=== PATIENT | female | born 1945 | race Caucasian/White ===

== ENCOUNTER 2016-07-31 16:37 | Emergency (ER) | payer MEDICARE ==
--- NOTE | 2016-07-31 17:36 | Emergency Department Record ---
History of Present Illness - General Source: Patient Mode of Arrival: Ambulatory Limitations: No limitations - History of Present Illness Initial comments: The patient is here due to having a long hx of poor dental care and now is having L facial pain and swelling for one day. She denies any fever, chills, GAR , or visual changes. MD complaint: Tooth pain Onset/Timin -: Days(s) Severity: Moderate Context- Dental: History of dental caries, Poor dental care Associated Symptoms: Gum swelling, Toothache <Eder Luis - Last Filed: 07/31/16 18:08> - General Source: RN notes reviewed <Horace Monreal - Last Filed: 08/01/16 09:37> - General Chief complaint: Dental Stated complaint: SWOLLEN FACE Time Seen by Provider: 07/31/16 17:35 - Related Data Home Medications Medication Instructions Recorded Confirmed Last Taken Mometasone Furoate [Nasonex] 2 inh NS DAILY 04/15/14 07/31/16 07/31/16 Acetaminophen [Arthritis Pain] 650 mg PO Q8HR 09/25/14 07/31/16 07/31/16 Insulin Degludec [Tresiba #15 04/06/16 07/31/16 Flextouch U-100] Previous Rx's Medication Instructions Recorded Cholecalciferol (Vitamin D3) 50,000 unit PO WEEKLY #8 tablet 06/12/14 [Dialyvite Vitamin D3 Max] Cephalexin [Keflex] 500 mg PO QID #40 cap 08/01/16 Allergies Allergy/AdvReac Type Severity Reaction Status Date / Time tetracycline [Tetracycline] Allergy Mild RASH Verified 08/01/16 08:41 Travel Screening - Travel/Exposure Within Last 30 Days Have you traveled within the last 30 days?: No - Travel/Exposure Within Last Year Have you traveled outside the [place] in the last year?: No - Additonal Travel Details Have you been exposed to anyone with a communicable illness?: No - Travel Symptoms Symptom Screening: None <Eder Luis - Last Filed: 07/31/16 18:08> Review of Systems Constitutional: Denies: Chills, Fever Eyes: Denies: Eye discharge ENT: Reports: Dental pain. Denies: Congestion Respiratory: Denies: Cough <Eder Luis - Last Filed: 07/31/16 18:08> Past Medical History - SOCIAL HISTORY Smoking Status: Never smoker Alcohol Use: None Drug Use: None - RESPIRATORY Hx Respiratory Disorders: Yes Hx Asthma: Yes Hx Pulmonary Embolism: Yes Hx Sleep Apnea: Yes Hx of CPAP: Yes (sometimes) Comment:: allergies - CARDIOVASCULAR Hx Cardio Disorders: Yes Hx Deep Vein Thrombosis: Yes (last 2013?) Hx Edema: Yes (BLE) Hx Hypertension: Yes Hx Vascular Disease: (n/a) Comment:: High cholestrol - NEURO Hx Neuro Disorders: No - GI Hx GI Disorders: No - Hx Genitourinary Disorders: Yes Hx Bladder Problem: Yes (incont.) - ENDOCRINE Hx Endocrine Disorders: Yes Hx Diabetes: Yes - MUSCULOSKELETAL Hx Musculoskeletal Disorders: Yes Hx Arthritis: Yes (knees) - PSYCH Hx Psych Problems: Yes Comment:: Bipolar - HEMATOLOGY/ONCOLOGY Hx Hematology/Oncology Disorders: Yes Hx Clotting Problems: Yes (DVT) Hx Blood Transfusions: Yes (w/ hysterectomy) <ToybEder Avery - Last Filed: 07/31/16 18:08> Family Medical History Any Significant Family History?: Yes Hx Cancer: Mother *Cancer Comment: multiple myeloma Hx Seizures: Brother/Sister <TobyEder Avery - Last Filed: 07/31/16 18:08> Physical Exam - General General Appearance: Alert, Oriented x3, Cooperative, No acute distress - Head Head exam: Atraumatic, Normocephalic, Normal inspection - Eye Eye exam: Normal appearance, PERRL, EOMI - ENT ENT exam: TM's normal bilaterally, Other (There is L facial edema and mild erythema over the maxillary area. There is swelling at the gum line at tooth # 12.). negative: Normal exam Throat exam: Normal inspection. negative: Tonsillar erythema, Tonsillomegaly - Neck Neck exam: Normal inspection, Full ROM. negative: Lymphadenopathy, Meningismus , Tenderness - Respiratory Respiratory exam: Normal lung sounds bilaterally. negative: Respiratory distress - Cardiovascular Cardiovascular Exam: Regular rate, Normal rhythm, Normal heart sounds <Eder Luis Bennie - Last Filed: 07/31/16 18:08> Course Vital Signs 07/31/16 17:14 Temperature 98 F Pulse Rate 114 H Respiratory 20 Rate Blood Pressure 154/91 Pulse Ox 91 L - Reevaluation(s) Reevaluation #1: The patient is doing very well at this time. I did discuss the issues with her and the need for return tomorrow morning. 07/31/16 18:09 <Eder Luis - Last Filed: 07/31/16 18:08> Vital Signs 07/31/16 07/31/16 17:14 18:36 Temperature 98 F Pulse Rate 114 H Pulse Rate [ 79 Right] Respiratory 20 20 Rate Blood Pressure 154/91 Blood Pressure 153/107 [Right Arm] Pulse Ox 91 L 90 L - Reevaluation(s) Reevaluation #1: because of cost will switch to keflex 500 mg QID and recheck tomorrow 08/01/16 09:34 <Horace Monreal - Last Filed: 08/01/16 09:37> Disposition Disposition: Discharge Time of Disposition: 18:11 <Eder Luis - Last Filed: 07/31/16 18:08> Time of Disposition: 09:37 <Horace Monreal - Last Filed: 08/01/16 09:37> Clinical Impression: Dental infection Disposition: Home, Self-Care Condition: (2) Stable Instructions: Dental Abscess (ED) Additional Instructions: Please take Tylenol for pain and use warm compresses to the L facial area. Take the single Clindamycin pill tonight as directed. Please return to the ER at 8 am tomorrow for recheck. Forms: Patient Portal Access
[2016-07-31] MEDS: CLINDAMYCIN 600MG/50ML PREMIX 600 MG in DEXTROSE 1 BAG IV ONE (17:51)
[2016-07-31] MEDS: CLINDAMYCIN 150 MG CAP PO ONE (18:17)
== END 2016-07-31 18:40 | disposition home or self-care (01) ==
LOC: ER 16:37
DX: K04.7 Periapical abscess without sinus (principal)
CPT/HCPCS: 96374; 99284

== ENCOUNTER 2016-08-01 08:29 | Emergency (ER) | payer MEDICARE ==
[2016-08-01] MEDS: CLINDAMYCIN 600MG/50ML PREMIX 600 MG in DEXTROSE 1 BAG IV ONE (09:09)
--- NOTE | 2016-08-01 09:14 | Emergency Department Record ---
History of Present Illness - General Chief complaint: Dental Stated complaint: RE-CHECK Time Seen by Provider: 08/01/16 09:08 Source: Patient, RN notes reviewed Mode of Arrival: Ambulatory - History of Present Illness Initial comments: dental infection and seen yesterday and asked to return for a recheck. patient said it got sore 2 days ago and swelling kourtney night in the face area. currently on clindamycin and she said the pain is slightly better. upper left gum has pointing abscess near tricuspid which is missing MD complaint: Tooth pain Onset/Timin -: Days(s) Severity: Mild Severity scale (1-10): 2 Quality: Aching Consistency: Constant Improves with: None Worsens with: Eating - Related Data Home Medications Medication Instructions Recorded Confirmed Last Taken Mometasone Furoate [Nasonex] 2 inh NS DAILY 04/15/14 07/31/16 07/31/16 Acetaminophen [Arthritis Pain] 650 mg PO Q8HR 09/25/14 07/31/16 07/31/16 Insulin Degludec [Tresiba #15 04/06/16 07/31/16 Flextouch U-100] Previous Rx's Medication Instructions Recorded Cholecalciferol (Vitamin D3) 50,000 unit PO WEEKLY #8 tablet 06/12/14 [Dialyvite Vitamin D3 Max] Cephalexin [Keflex] 500 mg PO QID #40 cap 08/01/16 Allergies Allergy/AdvReac Type Severity Reaction Status Date / Time tetracycline [Tetracycline] Allergy Mild RASH Verified 08/01/16 08:41 Travel Screening - Travel/Exposure Within Last 30 Days Have you traveled within the last 30 days?: No - Travel/Exposure Within Last Year Have you traveled outside the [place] in the last year?: No - Additonal Travel Details Have you been exposed to anyone with a communicable illness?: No - Travel Symptoms Symptom Screening: None Review of Systems Reviewed: No additional complaints except as noted below Constitutional: Reports: As per HPI. Denies: Chills, Fever, Malaise, Night sweats, Weakness, Weight change Eyes: Reports: As per HPI. Denies: Eye discharge, Eye pain, Photophobia, Vision change ENT: Reports: As per HPI. Denies: Congestion, Dental pain, Ear pain, Epistaxis , Hearing loss, Throat pain Respiratory: Reports: As per HPI. Denies: Cough, Dyspnea, Hemoptysis, Stridor, Wheezes Cardiovascular: Reports: As per HPI. Denies: Arrhythmia, Chest pain, Dyspnea on exertion, Edema, Murmurs, Orthopnea, Palpitations, Paroxysmal nocturnal dyspnea, Rheumatic Fever, Syncope Endocrine: Reports: As per HPI. Denies: Fatigue, Heat or cold intolerance, Polydipsia, Polyuria Gastrointestinal: Reports: As per HPI. Denies: Abdominal pain, Constipation, Diarrhea, Hematemesis, Hematochezia, Melena, Nausea, Vomiting Genitourinary: Reports: As per HPI. Denies: Abnormal menses, Discharge, Dyspareunia, Dysuria, Frequency, Hematuria, Incontinence, Retention, Urgency Musculoskeletal: Reports: As per HPI. Denies: Arthralgia, Back pain, Gout, Joint swelling, Myalgia, Neck pain Skin: Reports: As per HPI. Denies: Bruising, Change in color, Change in hair/ nails, Lesions, Pruritus, Rash Neurological: Reports: As per HPI. Denies: Abnormal gait, Confusion, Headache, Numbness, Paresthesias, Seizure, Tingling, Tremors, Vertigo, Weakness Psychiatric: Reports: As per HPI. Denies: Anxiety, Auditory hallucinations, Depression, Homicidal thoughts, Suicidal thoughts, Visual hallucinations Hematological/Lymphatic: Reports: As per HPI. Denies: Anemia, Blood Clots, Easy bleeding, Easy bruising, Swollen glands Past Medical History - SOCIAL HISTORY Smoking Status: Never smoker Alcohol Use: None Drug Use: None - RESPIRATORY Hx Respiratory Disorders: Yes Hx Asthma: Yes Hx Pulmonary Embolism: Yes Hx Sleep Apnea: Yes Hx of CPAP: Yes (sometimes) Comment:: allergies - CARDIOVASCULAR Hx Cardio Disorders: Yes Hx Deep Vein Thrombosis: Yes (last 2013?) Hx Edema: Yes (BLE) Hx Hypertension: Yes Hx Vascular Disease: (n/a) Comment:: High cholestrol - NEURO Hx Neuro Disorders: No - GI Hx GI Disorders: No - Hx Genitourinary Disorders: Yes Hx Bladder Problem: Yes (incont.) - ENDOCRINE Hx Endocrine Disorders: Yes Hx Diabetes: Yes - MUSCULOSKELETAL Hx Musculoskeletal Disorders: Yes Hx Arthritis: Yes (knees) - PSYCH Hx Psych Problems: Yes Comment:: Bipolar - HEMATOLOGY/ONCOLOGY Hx Hematology/Oncology Disorders: Yes Hx Clotting Problems: Yes (DVT) Hx Blood Transfusions: Yes (w/ hysterectomy) Family Medical History Any Significant Family History?: Yes Hx Cancer: Mother *Cancer Comment: multiple myeloma Hx Seizures: Brother/Sister Physical Exam - General General Appearance: Alert, Oriented x3, Cooperative, No acute distress - Head Head exam: Normal inspection - Eye Eye exam: Normal appearance, PERRL Pupils: Normal accommodation - ENT ENT exam: Normal exam, Mucous membranes moist, Normal external ear exam, Normal orophraynx, TM's normal bilaterally Ear exam: Normal external inspection. negative: External canal tenderness Nasal Exam: Normal inspection. negative: Discharge, Sinus tenderness Mouth exam: Normal external inspection, Tongue normal Teeth exam: Normal inspection, Other (gum abscess pointing upper by the tricuspid stop left side). negative: Dental caries Throat exam: Normal inspection. negative: Tonsillar erythema, Tonsillar exudate - Neck Neck exam: Normal inspection, Full ROM. negative: Tenderness - Respiratory Respiratory exam: Normal lung sounds bilaterally. negative: Respiratory distress - Cardiovascular Cardiovascular Exam: Regular rate, Normal rhythm, Normal heart sounds - GI/Abdominal GI/Abdominal exam: Soft, Normal bowel sounds. negative: Tenderness - Rectal Rectal exam: Deferred - exam: Deferred - Extremities Extremities exam: Normal inspection, Full ROM, Normal capillary refill. negative: Tenderness - Back Back exam: Reports: Normal inspection, Full ROM. Denies: Muscle spasm, Rash noted, Tenderness - Neurological Neurological exam: Alert, Normal gait, Oriented X3, Reflexes normal - Psychiatric Psychiatric exam: Normal affect, Normal mood - Skin Skin exam: Dry, Intact, Normal color, Warm Course Vital Signs 08/01/16 08/01/16 08:43 08:45 Temperature 97.6 F 97.7 F Pulse Rate 90 Pulse Rate [ 85 Pulse Ox Probe] Respiratory 20 16 Rate Blood Pressure 142/96 Blood Pressure 142/96 [Left Arm] Pulse Ox 90 L - Reevaluation(s) Reevaluation #1: incision and drainage of abscess 1 % lidocaine drained with a 11 blade purulent drainage 08/01/16 09:16 08/01/16 09:26 08/01/16 09:31 08/01/16 09:37 Reevaluation #2: start keflex 500 mg four times a day for abscess and she said no money for clindamycin 08/01/16 09:38 Disposition Clinical Impression: Dental abscess Disposition: Home, Self-Care Condition: (1) Good Additional Instructions: recheck tomorrow at 11 am in ED follow up with dentist next week and family keflex 500 mg four times a day rinse mouth with warm water 10 times a day. Prescriptions: Cephalexin [Keflex] 500 mg PO QID #40 cap Forms: Patient Portal Access Time of Disposition: 09:39
== END 2016-08-01 09:56 | disposition home or self-care (01) ==
LOC: ER 08:29
DX: K04.7 Periapical abscess without sinus (principal)
CPT/HCPCS: 41800; 96365; 99284

== ENCOUNTER 2016-08-02 10:59 | Emergency (ER) | payer MEDICARE ==
--- NOTE | 2016-08-02 11:32 | Emergency Department Record ---
History of Present Illness - General Chief Complaint: Recheck - Other Stated Complaint: RECHECK FACIAL SWELLING Time Seen by Provider: 08/02/16 11:18 Source: Patient Mode of arrival: Ambulatory Limitations: No limitations - History of Present Illness Initial Comments: The patient is her to recheck a recheck dental infection. She had an I and D 2 days ago. She is on Keflex 4 times daily. No fever or pus drainage. She still has some pain and mild swelling. The area involved is the left maxillary at #10. No eye pain or swelling. Onset/Timin -: Days(s) Initial Visit For: Abscess Symptoms Since Prior Visit: No new symptoms Associated Symptoms: None - Related Data Home Medications Medication Instructions Recorded Confirmed Last Taken Mometasone Furoate [Nasonex] 2 inh NS DAILY 04/15/14 07/31/16 08/01/16 Acetaminophen [Arthritis Pain] 650 mg PO Q8HR 09/25/14 07/31/16 08/01/16 Insulin Degludec [Tresiba #15 04/06/16 08/01/16 Flextouch U-100] Previous Rx's Medication Instructions Recorded Cholecalciferol (Vitamin D3) 50,000 unit PO WEEKLY #8 tablet 06/12/14 [Dialyvite Vitamin D3 Max] Cephalexin [Keflex] 500 mg PO QID #40 cap 08/01/16 Allergies Allergy/AdvReac Type Severity Reaction Status Date / Time tetracycline [Tetracycline] Allergy Mild RASH Verified 08/01/16 08:41 Travel Screening - Travel/Exposure Within Last 30 Days Have you traveled within the last 30 days?: No - Travel/Exposure Within Last Year Have you traveled outside the [place] in the last year?: No - Additonal Travel Details Have you been exposed to anyone with a communicable illness?: No - Travel Symptoms Symptom Screening: None Review of Systems Constitutional: Denies: Chills, Fever, Malaise, Weakness Eyes: Denies: Eye discharge, Eye pain ENT: Reports: Dental pain. Denies: Congestion, Ear pain, Throat pain Respiratory: Denies: Cough Cardiovascular: Denies: Chest pain Endocrine: Denies: Fatigue Gastrointestinal: Denies: Abdominal pain, Diarrhea, Nausea, Vomiting Musculoskeletal: Denies: Back pain, Myalgia Skin: Denies: Bruising, Change in color, Rash Neurological: Denies: Headache Psychiatric: Denies: Anxiety Hematological/Lymphatic: Denies: Blood Clots, Easy bleeding, Easy bruising Past Medical History - SOCIAL HISTORY Smoking Status: Never smoker Alcohol Use: None Drug Use: None - RESPIRATORY Hx Respiratory Disorders: Yes Hx Asthma: Yes Hx Pulmonary Embolism: Yes Hx Sleep Apnea: Yes Hx of CPAP: Yes (sometimes) Comment:: allergies - CARDIOVASCULAR Hx Cardio Disorders: Yes Hx Deep Vein Thrombosis: Yes (last 2013?) Hx Edema: Yes (BLE) Hx Hypertension: Yes Hx Vascular Disease: (n/a) Comment:: High cholestrol - NEURO Hx Neuro Disorders: No - GI Hx GI Disorders: No - Hx Genitourinary Disorders: Yes Hx Bladder Problem: Yes (incont.) - ENDOCRINE Hx Endocrine Disorders: Yes Hx Diabetes: Yes - MUSCULOSKELETAL Hx Musculoskeletal Disorders: Yes Hx Arthritis: Yes (knees) - PSYCH Hx Psych Problems: Yes Comment:: Bipolar - HEMATOLOGY/ONCOLOGY Hx Hematology/Oncology Disorders: Yes Hx Clotting Problems: Yes (DVT) Hx Blood Transfusions: Yes (w/ hysterectomy) Family Medical History Any Significant Family History?: Yes Hx Cancer: Mother *Cancer Comment: multiple myeloma Hx Seizures: Brother/Sister Physical Exam - General General Appearance: Alert, Oriented x3, Cooperative - Head Head exam: Atraumatic, Normocephalic, Normal inspection - Eye Eye exam: Normal appearance, PERRL. negative: Conjunctival injection, Periorbital swelling, Scleral icterus - ENT ENT exam: Mucous membranes moist, Normal orophraynx Ear exam: Normal external inspection Nasal Exam: Normal inspection Mouth exam: Tongue normal. negative: Drooling, Laceration, Muffled voice, Tongue elevation Teeth exam: Dental caries, Dental tenderness # (10), Other (Mild erythema, no pus, no fluctuance, no sign of abscess). negative: Fractured tooth #, Gingival enlargement Throat exam: Normal inspection. negative: Tonsillar erythema, Tonsillomegaly, Tonsillar exudate, R peritonsillar mass, L peritonsillar mass - Neck Neck exam: Normal inspection, Full ROM. negative: Tenderness - Respiratory Respiratory exam: Normal lung sounds bilaterally. negative: Respiratory distress - Cardiovascular Cardiovascular Exam: Regular rate, Normal rhythm, Normal heart sounds - Rectal Rectal exam: Deferred - exam: Deferred - Extremities Extremities exam: Normal inspection. negative: Tenderness - Back Back exam: Reports: Normal inspection, Full ROM. Denies: Muscle spasm, Rash noted, Tenderness - Neurological Neurological exam: Alert, Normal gait, Oriented X3, Reflexes normal - Psychiatric Psychiatric exam: negative: Agitated, Anxious - Skin Skin exam: Dry, Intact, Normal color, Warm Course Vital Signs 08/02/16 11:06 Temperature 98.6 F Pulse Rate 118 H Respiratory 20 Rate Blood Pressure 170/108 Pulse Ox 94 L - Reevaluation(s) Reevaluation #1: The patient is normal on inspection No sign of re-accumulation of pus, or abscess The Keflex will be continued A dental referral sheet was provided to the patient 08/02/16 11:30 Disposition Disposition: Discharge Clinical Impression: Dental infection Disposition: Home, Self-Care Condition: (1) Good Instructions: Dental Abscess (ED) Additional Instructions: Continue the Keflex 4 times daily Return as needed to the ER if you have any fever, redness or swelling. Call the numbers today for a dental referral. Forms: Patient Portal Access Time of Disposition: 11:28
== END 2016-08-02 11:49 | disposition home or self-care (01) ==
LOC: ER 10:59
DX: K04.7 Periapical abscess without sinus (principal)
CPT/HCPCS: 99282

== ENCOUNTER 2017-05-01 14:10 | Emergency (ER) | payer MEDICARE ==
--- NOTE | 2017-05-01 15:32 | Emergency Department Record ---
History of Present Illness - General Chief Complaint: Altered Mental Status Stated Complaint: CONFUSSION,FATIGUE Time Seen by Provider: 05/01/17 15:20 Source: Patient, RN notes reviewed Mode of Arrival: Ambulatory - History of Present Illness Initial Comments: word search problems yesterday. patient states she has forgotten alot of her med in the last week . On xarelto for DVT 's in the legs and PEs. No TX's and sees DR. Chung Mora. pulse ox low upon arrival at 83% on room air and that is new for her. MD Complaint: Confusion Onset/Timin -: Days(s) Severity: Moderate Context: Unknown Associated Symptoms: Cough, Shortness of breath - Dwight Coma Scale Eye Response: (4) Open spontaneously Motor Response: (6) Obeys commands Verbal Response: (4) Confused conversation [place] Total: 14 - Symptoms of Stroke Onset of Symptoms Date: 04/30/17 Onset of Symptoms Time: 20:00 - Related Data Home Medications Medication Instructions Recorded Confirmed Last Taken Insulin Glargine,Hum.[email or web address].anlog 100 unit SQ DAILY 05/01/17 05/01/17 1 Day Ago [Toujeo Solostar] ~04/30/17 Insulin Glulisine [Apidra] 10 unit SQ WMEALS 05/01/17 05/01/17 1 Day Ago ~04/30/17 Ubidecarenone [Coq-10] 100 mg PO DAILY 05/01/17 05/01/17 1 Day Ago ~04/30/17 Previous Rx's Medication Instructions Recorded Cholecalciferol (Vitamin D3) 50,000 unit PO WEEKLY #8 tablet 06/12/14 [Dialyvite Vitamin D3 Max] Allergies Allergy/AdvReac Type Severity Reaction Status Date / Time tetracycline [Tetracycline] Allergy Mild RASH Verified 05/01/17 15:03 Travel Screening - Travel/Exposure Within Last 30 Days Have you traveled within the last 30 days?: No - Travel/Exposure Within Last Year Have you traveled outside the [place] in the last year?: No - Additonal Travel Details Have you been exposed to anyone with a communicable illness?: No - Travel Symptoms Symptom Screening: None Review of Systems Reviewed: No additional complaints except as noted below Constitutional: Reports: As per HPI. Denies: Chills, Fever, Malaise, Night sweats, Weakness, Weight change Eyes: Reports: As per HPI. Denies: Eye discharge, Eye pain, Photophobia, Vision change ENT: Reports: As per HPI. Denies: Congestion, Dental pain, Ear pain, Epistaxis , Hearing loss, Throat pain Respiratory: Reports: As per HPI, Cough, Dyspnea. Denies: Hemoptysis, Stridor, Wheezes Cardiovascular: Reports: As per HPI. Denies: Arrhythmia, Chest pain, Dyspnea on exertion, Edema, Murmurs, Orthopnea, Palpitations, Paroxysmal nocturnal dyspnea, Rheumatic Fever, Syncope Endocrine: Reports: As per HPI. Denies: Fatigue, Heat or cold intolerance, Polydipsia, Polyuria Gastrointestinal: Reports: As per HPI. Denies: Abdominal pain, Constipation, Diarrhea, Hematemesis, Hematochezia, Melena, Nausea, Vomiting Genitourinary: Reports: As per HPI. Denies: Abnormal menses, Discharge, Dyspareunia, Dysuria, Frequency, Hematuria, Incontinence, Retention, Urgency Musculoskeletal: Reports: As per HPI. Denies: Arthralgia, Back pain, Gout, Joint swelling, Myalgia, Neck pain Skin: Reports: As per HPI. Denies: Bruising, Change in color, Change in hair/ nails, Lesions, Pruritus, Rash Neurological: Reports: As per HPI, Confusion. Denies: Abnormal gait, Headache, Numbness, Paresthesias, Seizure, Tingling, Tremors, Vertigo, Weakness Psychiatric: Reports: As per HPI. Denies: Anxiety, Auditory hallucinations, Depression, Homicidal thoughts, Suicidal thoughts, Visual hallucinations Hematological/Lymphatic: Reports: As per HPI. Denies: Anemia, Blood Clots, Easy bleeding, Easy bruising, Swollen glands Past Medical History - SOCIAL HISTORY Smoking Status: Never smoker Alcohol Use: None Drug Use: None - RESPIRATORY Hx Respiratory Disorders: Yes Hx Asthma: Yes Hx Pulmonary Embolism: Yes Hx Sleep Apnea: Yes Hx of CPAP: Yes (sometimes, last use 04/2016) Comment:: allergies - CARDIOVASCULAR Hx Cardio Disorders: Yes Hx Deep Vein Thrombosis: Yes (last 2013?) Hx Edema: Yes (BLE) Hx Hypertension: Yes Hx Vascular Disease: (n/a) Comment:: High cholestrol - NEURO Hx Neuro Disorders: No - GI Hx GI Disorders: No - Hx Genitourinary Disorders: Yes Hx Bladder Problem: Yes (incont.) - ENDOCRINE Hx Endocrine Disorders: Yes Hx Diabetes: Yes Comment:: bilateral neurapathy - MUSCULOSKELETAL Hx Musculoskeletal Disorders: Yes Hx Arthritis: Yes (knees) - PSYCH Hx Psych Problems: Yes Comment:: Bipolar - HEMATOLOGY/ONCOLOGY Hx Hematology/Oncology Disorders: Yes Hx Clotting Problems: Yes (DVT) Hx Blood Transfusions: Yes (w/ hysterectomy) Family Medical History Any Significant Family History?: Yes Hx Cancer: Mother *Cancer Comment: multiple myeloma Hx Seizures: Brother/Sister Physical Exam - General General Appearance: Alert, Oriented x3, Cooperative, No acute distress - Head Head exam: Normal inspection - Eye Eye exam: Normal appearance, PERRL Pupils: Normal accommodation - ENT ENT exam: Normal exam, Mucous membranes moist, Normal external ear exam, Normal orophraynx, TM's normal bilaterally Ear exam: Normal external inspection. negative: External canal tenderness Nasal Exam: Normal inspection. negative: Discharge, Sinus tenderness Mouth exam: Normal external inspection, Tongue normal Teeth exam: Normal inspection. negative: Dental caries Throat exam: Normal inspection. negative: Tonsillar erythema, Tonsillar exudate - Neck Neck exam: Normal inspection, Full ROM. negative: Tenderness - Respiratory Respiratory exam: Decreased breath sounds, Rales. negative: Respiratory distress - Cardiovascular Cardiovascular Exam: Regular rate, Normal rhythm, Normal heart sounds - GI/Abdominal GI/Abdominal exam: Soft, Normal bowel sounds. negative: Tenderness - Rectal Rectal exam: Deferred - exam: Deferred - Extremities Extremities exam: Normal inspection, Full ROM, Normal capillary refill. negative: Tenderness - Back Back exam: Reports: Normal inspection, Full ROM. Denies: Muscle spasm, Rash noted, Tenderness - Neurological Neurological exam: Alert, Normal gait, Oriented X3, Reflexes normal - Psychiatric Psychiatric exam: Normal affect, Normal mood - Skin Skin exam: Dry, Intact, Normal color, Warm Course Vital Signs 05/01/17 14:50 Temperature 97.6 F Pulse Rate 96 H Respiratory 18 Rate Blood Pressure 128/69 Pulse Ox 83 L discussed case with Simi and CTA of chest negative for PE but massive sub sternal goiter and because of this finding will send her to [facility] where she can see Dr Mora and get this mass worked up. - Reevaluation(s) Reevaluation #1: Discussed case with Dr. Gottlieb and she accepted the transfer and admission 05/01/17 20:32 Medical Decision Making - Data Complexity MDM Data: Labs Ordered and/or Reviewed (d dimer up .86,), X-Ray Ordered and/or Reviewed (CHF and cardiomegaly , Ct of head negative, CT of chest neg for PE and massive sub hyoid goiter, ground glass appearance of the chest consistent with CHF), EKG Ordered and/or Reviewed (No acute changes) - Lab Data Result diagrams: 05/01/17 15:05 05/01/17 15:05 - EKG Data EKG: No Acute Changes Disposition Clinical Impression: Mass in chest CHF (congestive heart failure) Qualifiers: Congestive heart failure type: systolic Congestive heart failure chronicity: acute Qualified Code(s): I50.21 - Acute systolic (congestive) heart failure Disposition: Acute Care Hospital Transfer Condition: (2) Stable Forms: Patient Portal Access Time of Disposition: 19:39 Quality - Quality Measures Quality Measures: N/A - Blood Pressure Screening Does Patient Have Any of the Following: No Blood Pressure Classification: Pre-Hypertensive BP Reading Systolic Measurement: 128 Diastolic Measurement: 69 Screening for High Blood Pressure: < Pre-Hypertensive BP, F/U Documented > [ G8950] Pre-Hypertensive Follow-up Interventions: Referral to alternative/primary care provider.
[2017-05-01] MEDS ORDERED: 0.9 % SODIUM CHLORIDE 1000ML 1,000 ML IV PRN (15:34)
[2017-05-01 15:49] LABS: BASO % 0.1 % (0-6); EOS % 0.1 % (0-6); GRAN % 78.8 % (47-80); HEMATOCRIT 48.7 % (35.0-47.0); HEMOGLOBIN 16.1 gm/dl (11.6-16.0); LYMPH % 13.1 % (16-45); MEAN CELL VOLUME 92.4 fl (81-97); MEAN CORPUSCULAR HGB CONC 33.1 g/dl (32-36); MEAN PLATELET VOLUME 10.3 fl (7.4-10.4); MONO % 7.9 % (0-9); PLATELET COUNT 155 K/uL (130-400); RED BLOOD COUNT 5.27 M/uL (3.80-5.40)
[2017-05-01 15:51] LABS: MEAN CORPUSCULAR HEMOGLOBIN 30.5 pg (27-33)
[2017-05-01 16:07] LABS: ALBUMIN 3.8 g/dL (4.0-5.0); ALKALINE PHOSPHATASE 96 U/L (35-104); ALT/SGPT 19 U/L (<33); AST/SGOT 20 U/L (10.0-35.0); BLOOD UREA NITROGEN 29 mg/dL (8-23); EST GLOMERULAR FILTRATION RATE 58 mL/min; GLUCOSE,RANDOM 226 mg/dL (74-109); TOTAL PROTEIN 7.3 g/dL (6.6-8.7)
[2017-05-01 16:13] LABS: ACETAMINOPHEN < 5.0 ug/mL (10.0-30.0); ALCOHOL < 0.010 g/dL (0-0.010); BILIRUBIN,DIRECT < 0.2 mg/dL (0-0.3); SALICYLATE < 0.3 mg/dL (2.8-20)
[2017-05-01 16:53] LABS: CKMB 1.8 ng/mL (<3.77)
[2017-05-01 17:40] LABS: URINE APPEARANCE CLOUDY; URINE BILIRUBIN NEGATIVE (NEGATIVE); URINE BLOOD TRACE-I (NEGATIVE); URINE COLOR YELLOW; URINE KETONE NEGATIVE (NEGATIVE); URINE LEUKOCYTE ESTERASE LARGE (NEGATIVE); URINE NITRITE POSITIVE (NEGATIVE); URINE PROTEIN NEGATIVE (NEGATIVE); URINE UROBILINOGEN 0.2 E.U./dL (0.20 - 1.00)
[2017-05-01 17:42] LABS: AMPHETAMINE SCREEN URINE NOT DETECTED; BARBITURATE SCREEN URINE NOT DETECTED; BENZODIAZEPINE SCREEN URINE NOT DETECTED; COCAINE SCREEN URINE NOT DETECTED; METHADONE SCREEN URINE NOT DETECTED; METHAMPHETAMINE SCREEN NOT DETECTED; OPIATE SCREEN URINE NOT DETECTED; OXYCODONE SCREEN URINE NOT DETECTED; PHENCYCLIDINE SCREEN URINE NOT DETECTED; PROPOXYPHENE SCREEN URINE NOT DETECTED; THC SCREEN URINE NOT DETECTED; TRICYCLIC ANTIDEPRESSANT SCRN NOT DETECTED
[2017-05-01 17:44] LABS: URINE BACTERIA 2+; URINE EPITHELIAL CELLS 0 - 2 (FEW); URINE RBC NONE SEEN (NONE SEEN); URINE WBC 21 - 35 (0-2/hpf)
[2017-05-01] MEDS ORDERED: FUROSEMIDE IV 40MG/4ML VIAL IVP ONE (18:21)
[2017-05-01] MEDS ORDERED: CEFTRIAXONE SODIUM 1 GM in 0.9 % SODIUM CHLORIDE 100ML 100 ML IVPB ONE (18:53)
--- NOTE | 2017-05-02 10:29 | RADIOLOGY REPORT ---
EXAM: CHEST, TWO VIEWS HISTORY: HYPOXIA AND CONFUSION. WEAKNESS. TECHNIQUE: Two views of the chest were obtained. Comparison: None. FINDINGS: Telemetry leads overlie the chest. There is mild cardiomegaly. Prominence of the pulmonary vascularity. Mild bibasilar opacities may relate to pleural fluid and atelectasis/ infiltrate. Moderate thoracic spondylosis. IMPRESSION: CARDIOMEGALY. SUGGESTION OF MILD BIBASILAR OPACITIES LIKELY A COMBINATION OF PLEURAL FLUID AND ATELECTASIS/INFILTRATE. GIVEN PROMINENCE OF THE PULMONARY VASCULARITY, CHF WOULD ALSO BE A POSSIBILITY IN THE APPROPRIATE CLINICAL SETTING. JOB NUMBER: [id number] [facility]TDD
--- NOTE | 2017-05-02 10:49 | CT SCAN REPORT ---
EXAM: CT OF THE HEAD WITHOUT CONTRAST HISTORY: CONFUSION, FATIGUE. TECHNIQUE: Routine noncontrast CT images of the head were obtained. Comparison: None. FINDINGS: The ventricles, basal cisterns, and sulci are of normal size, shape and configuration. No midline shift or mass effect. The jain white differentiation is well maintained throughout both cerebral hemispheres. No evidence of acute ischemia. There is periventricular hypoattenuation likely a sequela of chronic microvascular ischemia. There is a tiny 3 mm round hypodense focus in the region of the foramen of Monro. This could relate to a tiny colloid cyst and is of doubtful significance given lack of associated hydrocephalus. No intracranial hemorrhage. The paranasal sinuses and mastoid air cells appear clear. IMPRESSION: 1. NO ACUTE INTRACRANIAL ABNORMALITY. 2. CHRONIC MICROVASCULAR ISCHEMIA. 3. INCIDENTALLY NOTED IS A TINY ROUND HYPERDENSE FOCUS MEASURING 3 MM IN THE REGION OF THE FORAMEN OF [place] WHICH COULD RELATE TO A TINY COLLOID CYST AND IS OF DOUBTFUL SIGNIFICANCE GIVEN THE LACK OF ASSOCIATED HYDROCEPHALUS. IF PERSISTENT CLINICAL CONCERN FOLLOW-UP IMAGING WITH CT OR MR COULD BE OBTAINED. JOB NUMBER: [id number] [facility]
--- NOTE | 2017-05-02 10:59 | CT ANGIOGRAM REPORT ---
EXAM: CTA OF THE CHEST HISTORY: DYSPNEA, HYPOXIA. EVALUATE FOR PE. TECHNIQUE: Routine CT angiography images of the chest were obtained. Amount and type contrast in the medical record. FINDINGS: The heart is not enlarged. No pericardial effusion. The aorta enhances normally with contrast. There are no central filling defects in the pulmonary arteries to suggest acute PE. There is a heterogeneous soft tissue density mass which extends into the mediastinum interposed between the trachea and esophagus. This displaces the esophagus to the right. It contains scattered calcifications. 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 The portion of the mass within the chest measures 5.6 x 6.4 cm. The lungs demonstrate mild bibasilar atelectasis. There are scattered ground glass opacities which may relate to pulmonary edema. Interlobular septal thickening also noted which could relate to interstitial edema. No large focal consolidation. No pleural effusion. The visualized upper abdomen demonstrates small bilateral renal hypodensities probably simple cysts. No acute osseous abnormality. Moderate degenerative changes within the thoracic spine. IMPRESSION: 1. NO EVIDENCE FOR PULMONARY EMBOLUS. 2. THERE IS A LARGE SOFT TISSUE MASS DEMONSTRATING A HETEROGENEOUS APPEARANCE AND MULTIPLE CALCIFICATIONS WITHIN THE MEDIASTINUM DISPLACING THE ESOPHAGUS TO THE RIGHT. THIS APPEARS TO BE CONTIGUOUS WITH AN ABNORMAL APPEARING THYROID GLAND SUPERIORLY. WITHIN THE CHEST, THE MASS MEASURES 5.6 X 6.4 CM. SUSPECT MASSIVE SUBSTERNAL GOITER. TO CONFIRM THAT THIS IS THYROID TISSUE AND TO EXCLUDE OTHER MEDIASTINAL MASSES, RECOMMEND NUCLEAR MEDICINE THYROID SCAN. IF THIS CANNOT BE PERFORMED, SHORT TERM FOLLOW UP CT CHEST SHOULD BE OBTAINED. 3. SCATTERED INTERLOBULAR SEPTAL THICKENING AND GROUND GLASS OPACITIES WITHIN THE LUNGS SUGGESTING POSSIBLE PULMONARY EDEMA. JOB NUMBER: [id number] [facility]
== END 2017-05-01 21:44 | disposition short-term general hospital (02) ==
LOC: ER 14:10
DX: I11.0 Hypertensive heart disease with heart failure (principal); I50.21 Acute systolic (congestive) heart failure; R93.8 Abnormal findings on diagnostic imaging of other specified body structures; R41.82 Altered mental status, unspecified; R06.02 Shortness of breath; E11.9 Type 2 diabetes mellitus without complications; Z79.4 Long term (current) use of insulin; Z79.01 Long term (current) use of anticoagulants; Z86.718 Personal history of other venous thrombosis and embolism
CPT/HCPCS: 99285 ×2; 96365; 96375; 85025; 85730; 80076; 82553; 80048; 81001; 80305; 84484; 85379; 71020; 71275; 70450; 93005; 93010; G0480 ×3; Q9967; 80320; 80329; J1940

== ENCOUNTER 2017-05-09 10:11 | Inpatient (IN) | payer MEDICARE ==
[2017-05-10] MEDS: NOVOLOG FLEXPEN (INSULIN ASPART) 100 UNITS/ML SQ SCH ×2 (18:08→18:12)
[2017-05-10] MEDS: PREGABALIN 25 MG CAPSULE PO SCH ×2 (18:15→22:34)
[2017-05-10] MEDS ORDERED: FLU VAC QS 2017-18 (INPT, 6MO+) 60MCG/0.5ML IM ONE (18:19)
[2017-05-10] MEDS ORDERED: LEVEMIR FLEXTOUCH 100 UNIT/ML INSULIN PEN SQ SCH (22:00)
[2017-05-10] MEDS: DOCUSATE SODIUM 100 MG CAPSULE PO SCH (22:34)
[2017-05-10] MEDS: MONTELUKAST SODIUM 10MG TABLET PO SCH (22:34)
[2017-05-10] MEDS: NYSTATIN 15 GM POWDER TP SCH (22:55)
[2017-05-11] MEDS: NOVOLOG FLEXPEN (INSULIN ASPART) 100 UNITS/ML SQ SCH ×6 (08:26→17:39)
[2017-05-11] MEDS: MAGNESIUM OXIDE 400 MG TABLET PO SCH (09:18)
[2017-05-11] MEDS: POTASSIUM CHLORIDE 10 MEQ TAB PO SCH (09:18)
[2017-05-11] MEDS: SERTRALINE HCL 50 MG TABLET PO SCH (09:18)
[2017-05-11] MEDS: DOCUSATE SODIUM 100 MG CAPSULE PO SCH ×2 (09:18→21:38)
[2017-05-11] MEDS: OXYBUTYNIN CHLORIDE 5MG TABLET PO SCH ×2 (09:19→21:38)
[2017-05-11] MEDS: PREGABALIN 25 MG CAPSULE PO SCH ×3 (09:19→21:38)
[2017-05-11] MEDS: ENALAPRIL 5 MG TABLET PO SCH (09:19)
[2017-05-11] MEDS: FUROSEMIDE 40 MG TABLET PO SCH (09:20)
[2017-05-11] MEDS: RIVAROXABAN 20 MG TABLET PO SCH ×3 (09:20→11:25)
[2017-05-11] MEDS: ASPIRIN 81 MG TABEC PO SCH (09:20)
[2017-05-11] MEDS: ATORVASTATIN 20 MG TABLET PO SCH (09:22)
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
[2017-05-11 12:50] LABS: HEMATOCRIT 43.8 % (35.0-47.0); HEMOGLOBIN 13.8 gm/dl (11.6-16.0); LYMPH % 12.8 % (16-45); MEAN CELL VOLUME 93.2 fl (81-97); MEAN CORPUSCULAR HEMOGLOBIN 29.4 pg (27-33); MEAN CORPUSCULAR HGB CONC 31.5 g/dl (32-36); MEAN PLATELET VOLUME 10.9 fl (7.4-10.4); MONO % 7.2 % (0-9); PLATELET COUNT 181 K/uL (130-400); RED CELL DISTRIBUTION WIDTH 13.4 % (11.5-14.5)
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
[2017-05-11 14:58] LABS: BLOOD UREA NITROGEN 22 mg/dL (8-23); CREATININE 0.8 mg/dL (0.5-0.9); EST GLOMERULAR FILTRATION RATE > 60 mL/min; GLUCOSE,RANDOM 235 mg/dL (74-109); THYROID STIMULATING HORMONE 0.75 uIU/mL (0.270-4.20)
[2017-05-11] MEDS: MONTELUKAST SODIUM 10MG TABLET PO SCH (21:38)
[2017-05-11] MEDS: LEVEMIR FLEXTOUCH 100 UNIT/ML INSULIN PEN SQ SCH (21:39)
[2017-05-12] MEDS: FLUTICASONE PROPIONATE 50MCG NASAL 16 GM BTL SCH ×2 (04:14→11:56)
[2017-05-12] MEDS: NYSTATIN 15 GM POWDER TP SCH ×3 (04:14→22:23)
[2017-05-12] MEDS: NOVOLOG FLEXPEN (INSULIN ASPART) 100 UNITS/ML SQ SCH ×6 (08:12→18:26)
[2017-05-12] MEDS: POTASSIUM CHLORIDE 10 MEQ TAB PO SCH (11:34)
[2017-05-12] MEDS: OXYBUTYNIN CHLORIDE 5MG TABLET PO SCH ×2 (11:35→22:17)
[2017-05-12] MEDS: ASPIRIN 81 MG TABEC PO SCH (11:36)
[2017-05-12] MEDS: ATORVASTATIN 20 MG TABLET PO SCH (11:36)
--- NOTE | 2017-05-12 11:40 | Physical Therapy Tx Note ---
Physical Therapy Tx Note - Treatment Note Tolerated: Good Total Time Spent With Patient: 30 Physical Therapy Tx Note: Detail (Patient states doing good this morning. Patient transferred sit to and from stand SBA x1. Patient ambulated 118 feet with wheeled walker SBA x1. Patient performed the following exercises x30 seconds each: feet together, DLS with eyes closed, feet together with looking side to side, feet together with looking up and down, and stride stance. Patient performed the following exercises x10 reps each: seated marching, LAQ, and isometric adductor squeeze. Patient tolerated treatment well. Patient required seated rest breaks with standing balance exercises due to fatigue. Patient displays decreased balance with stride stance, DLS with eyes closed, feet together with looking side to side, feet together with looking up and down. Patient reports being fatigued after treatment. Patient was left seated in chair with call light within reach.) Physical Therapy Problem List: Detail (1. Impaired gait mechanics 2. Impaired balance 3. Inability to complete sustained physical activites as required in a home environment.) Physical Therapy Goals: 1. Pt. will demonstrate independence with bed mobility and supine to sit transfers. 2. Pt. will complete the Tinetti or Belle balance outcome assessment to assess fall risk level of patient and overall balance with different tasks. 3. Pt. will independently ambulate 100ft without the use of an AD displaying proper gait and balance mechanics with decreased sway of the trunk. Prognosis: Good Physical Therapy Plan: Pt. will be seen Tuesday-Tuesday 1-2x/day. POC will include muscular endurance training, gait training, balance training, and bed mobility/transfers.
[2017-05-12] MEDS: RIVAROXABAN 20 MG TABLET PO SCH (11:42)
[2017-05-12] MEDS: DOCUSATE SODIUM 100 MG CAPSULE PO SCH ×2 (11:42→22:17)
[2017-05-12] MEDS: FUROSEMIDE 40 MG TABLET PO SCH (11:42)
[2017-05-12] MEDS: PREGABALIN 25 MG CAPSULE PO SCH ×3 (11:42→22:17)
[2017-05-12] MEDS: MAGNESIUM OXIDE 400 MG TABLET PO SCH ×2 (11:42→22:17)
[2017-05-12] MEDS: SERTRALINE HCL 50 MG TABLET PO SCH (11:43)
[2017-05-12] MEDS: ENALAPRIL 5 MG TABLET PO SCH (11:56)
--- NOTE | 2017-05-12 14:47 | Physical Therapy Tx Note ---
Physical Therapy Tx Note - Treatment Note Tolerated: Good Total Time Spent With Patient: 35 Physical Therapy Tx Note: Detail (Patient states doing well this afternoon, with some complaints of UE fatigue with walking. Patient transferred sit to and from stand SBA x1. Patient ambulated 138 feet with wheeled walker SBA x1. Patient performed the following exercises x10 reps each: seated marching, LAQ, seated hamstring curls with red theraband, seated isometric hip adduction, seated hip abduction with red theraband, standing heel raises, standing toe raises, standing hip abduction, and standing hip extension. Patient transferred sit to and from stand SBA x1. Patient ambulated 10 feet x2 with wheeled walker SBA x1. Patient transferred sit and from stand SBA x1. Patient tolerated treatment well. Patient displays decreased strength and endurance with standing hip abduction, standing hip extension, standing heel raises, and standing toe raises. Patient reports some fatigue after treatment. Patient was left reclined in chair with call light within reach.) Physical Therapy Problem List: Detail (1. Impaired gait mechanics 2. Impaired balance 3. Inability to complete sustained physical activites as required in a home environment.) Physical Therapy Goals: 1. Pt. will demonstrate independence with bed mobility and supine to sit transfers. 2. Pt. will complete the Tinetti or Belle balance outcome assessment to assess fall risk level of patient and overall balance with different tasks. 3. Pt. will independently ambulate 100ft without the use of an AD displaying proper gait and balance mechanics with decreased sway of the trunk. Prognosis: Good Physical Therapy Plan: Pt. will be seen Tuesday-Tuesday 1-2x/day. POC will include muscular endurance training, gait training, balance training, and bed mobility/transfers.
[2017-05-12] MEDS: MONTELUKAST SODIUM 10MG TABLET PO SCH (22:17)
[2017-05-12] MEDS: LEVEMIR FLEXTOUCH 100 UNIT/ML INSULIN PEN SQ SCH (22:18)
[2017-05-13] MEDS: NOVOLOG FLEXPEN (INSULIN ASPART) 100 UNITS/ML SQ SCH ×6 (07:51→17:51)
--- NOTE | 2017-05-13 09:58 | Physical Therapy Tx Note ---
Physical Therapy Tx Note - Treatment Note Total Time Spent With Patient: 30 Physical Therapy Tx Note: Detail (Pt. reports no complaints at this time of pain , shortness of breath, or dizziness. Pt. completed the Tinetti Balance Assessment Tool with an overall score of 19/28 indicating a moderate fall risk. Pt. independently ambulated 120 ft. with oxygen tank and a front wheeled walker CGA x1. Pt. completed ther ex. of 1x10 glute sets, 5 sec holds, ankle pumps, long arc quads 1x10, seated marching in place, 10 reps each leg, and adductor squeezes with pillow in between knees, 1x10, 3 sec holds. Pt. exhibited good standing balance overall, but stood with a wide base of support, had a discontinuous step pattern with a 360 turn, and required the use of her hands to safely perform a sit to stand and stand to sit tranfer. Pt. exhibited marked sway with ambulation and a shorter stride length on the left side. Continue per POC, and look at bed mobility. Pt. was left in recliner chair, with oxygen hooked up, and call light available.) Physical Therapy Problem List: Detail (1. Impaired gait mechanics 2. Impaired balance 3. Inability to complete sustained physical activites as required in a home environment.) Physical Therapy Goals: 1. Pt. will demonstrate independence with bed mobility and supine to sit transfers. 2. Pt. will complete the Tinetti or Belle balance outcome assessment to assess fall risk level of patient and overall balance with different tasks. (Goal met). 3. Pt. will independently ambulate 100ft without the use of an AD displaying proper gait and balance mechanics with decreased sway of the trunk. 4. Pt. will improve Tinetti balance score to a 21/ 28 to indicate improved stability with ambulation. Prognosis: Good Physical Therapy Plan: Pt. will be seen Tuesday-Tuesday 1-2x/day. POC will include muscular endurance training, gait training, balance training, and bed mobility/transfers.
[2017-05-13] MEDS: PREGABALIN 25 MG CAPSULE PO SCH ×3 (10:18→22:33)
[2017-05-13] MEDS: OXYBUTYNIN CHLORIDE 5MG TABLET PO SCH ×2 (10:18→22:33)
[2017-05-13] MEDS: ASPIRIN 81 MG TABEC PO SCH (10:18)
[2017-05-13] MEDS: RIVAROXABAN 20 MG TABLET PO SCH (10:18)
[2017-05-13] MEDS: ENALAPRIL 5 MG TABLET PO SCH (10:19)
[2017-05-13] MEDS: FUROSEMIDE 40 MG TABLET PO SCH (10:19)
[2017-05-13] MEDS: DOCUSATE SODIUM 100 MG CAPSULE PO SCH ×2 (10:19→22:33)
[2017-05-13] MEDS: SERTRALINE HCL 50 MG TABLET PO SCH (10:19)
[2017-05-13] MEDS: ATORVASTATIN 20 MG TABLET PO SCH (10:19)
[2017-05-13] MEDS: MAGNESIUM OXIDE 400 MG TABLET PO SCH ×2 (10:19→22:33)
[2017-05-13] MEDS: POTASSIUM CHLORIDE 10 MEQ TAB PO SCH (10:19)
[2017-05-13] MEDS: NYSTATIN 15 GM POWDER TP SCH ×2 (15:20→22:00)
--- NOTE | 2017-05-13 16:02 | Occupational Therapy Tx Note ---
Occupational Therapy Tx Note - Treatment Note Tolerated: Good Total Time Spent With Patient: 35 Occupational Therapy Treatment Note: Detail (S: Pt. declined to participate in shower assessment this session d/t taking shower yesterday and feeling extra tired. Pt. was still in hospital gown and wished to dress, however. O: Pt. performed ADL routine with min assist to manage O2 line, and 2 short seated rest breaks. Pt. stood at sink using walker for BUE support prn. to wash face and brush hair. Pt. doffed hospital gown and donned stretch pants and blouse while seated in arm chair. Pt. was ind. w/ sit<>stand transfers and using walker for functional mobility (chair<>bathroom). A: Pt. tolerated session well and performed ADL tasks safely with min A to manage O2 line. P: cont. OT services to address endurance and ADL goals, and assess shower safety.) Occupational Therapy Problem List: Detail (1. Decreased Ind with showering 2. Decreased endurance needed for safe and Ind ADLs.) Occupational Therapy Goals: 1. Pt will be Ind with showering in sitting. 2. Pt will demonstrate improved endurance needed for safe and Ind ADLs Prognosis: Good Occupational Therapy Plan: OT 2-4 days per week to address self cares and endurance needed for safe and Ind ADLs.
[2017-05-13] MEDS: MONTELUKAST SODIUM 10MG TABLET PO SCH (22:33)
[2017-05-13] MEDS: LEVEMIR FLEXTOUCH 100 UNIT/ML INSULIN PEN SQ SCH (22:34)
[2017-05-14] MEDS: NOVOLOG FLEXPEN (INSULIN ASPART) 100 UNITS/ML SQ SCH ×6 (09:21→17:31)
[2017-05-14] MEDS: DOCUSATE SODIUM 100 MG CAPSULE PO SCH ×2 (09:27→21:44)
[2017-05-14] MEDS: OXYBUTYNIN CHLORIDE 5MG TABLET PO SCH ×2 (09:28→21:44)
[2017-05-14] MEDS: FUROSEMIDE 40 MG TABLET PO SCH (09:28)
[2017-05-14] MEDS: POTASSIUM CHLORIDE 10 MEQ TAB PO SCH (09:28)
[2017-05-14] MEDS: ATORVASTATIN 20 MG TABLET PO SCH (09:28)
[2017-05-14] MEDS: ASPIRIN 81 MG TABEC PO SCH (09:28)
[2017-05-14] MEDS: NYSTATIN 15 GM POWDER TP SCH ×2 (09:29→21:47)
[2017-05-14] MEDS: MAGNESIUM OXIDE 400 MG TABLET PO SCH ×2 (09:29→21:44)
[2017-05-14] MEDS: PREGABALIN 25 MG CAPSULE PO SCH ×3 (09:29→21:44)
[2017-05-14] MEDS: ENALAPRIL 5 MG TABLET PO SCH (09:30)
[2017-05-14] MEDS: SERTRALINE HCL 50 MG TABLET PO SCH (09:30)
[2017-05-14] MEDS: RIVAROXABAN 20 MG TABLET PO SCH (09:30)
[2017-05-14] MEDS: FLUTICASONE PROPIONATE 50MCG NASAL 16 GM BTL SCH ×2 (11:46→11:47)
[2017-05-14] MEDS: MONTELUKAST SODIUM 10MG TABLET PO SCH (21:44)
[2017-05-14] MEDS: LEVEMIR FLEXTOUCH 100 UNIT/ML INSULIN PEN SQ SCH (21:44)
[2017-05-15] MEDS: NOVOLOG FLEXPEN (INSULIN ASPART) 100 UNITS/ML SQ SCH ×6 (08:13→18:46)
[2017-05-15] MEDS: OXYBUTYNIN CHLORIDE 5MG TABLET PO SCH ×2 (11:44→21:59)
[2017-05-15] MEDS: RIVAROXABAN 20 MG TABLET PO SCH (11:44)
[2017-05-15] MEDS: MAGNESIUM OXIDE 400 MG TABLET PO SCH ×2 (11:44→21:58)
[2017-05-15] MEDS: FUROSEMIDE 40 MG TABLET PO SCH (11:45)
[2017-05-15] MEDS: POTASSIUM CHLORIDE 10 MEQ TAB PO SCH (11:45)
[2017-05-15] MEDS: ASPIRIN 81 MG TABEC PO SCH (11:45)
[2017-05-15] MEDS: DOCUSATE SODIUM 100 MG CAPSULE PO SCH ×2 (11:46→21:58)
[2017-05-15] MEDS: SERTRALINE HCL 50 MG TABLET PO SCH (11:46)
[2017-05-15] MEDS: PREGABALIN 25 MG CAPSULE PO SCH ×3 (11:46→21:59)
[2017-05-15] MEDS: ATORVASTATIN 20 MG TABLET PO SCH (11:48)
[2017-05-15] MEDS: ENALAPRIL 5 MG TABLET PO SCH (11:49)
[2017-05-15] MEDS: NYSTATIN 15 GM POWDER TP SCH ×2 (11:50→22:00)
[2017-05-15] MEDS: FLUTICASONE PROPIONATE 50MCG NASAL 16 GM BTL SCH (11:50)
[2017-05-15] MEDS ORDERED: TRIAMCIN TOP PRN (13:02)
[2017-05-15] MEDS ORDERED: NYSTATIN TOP PRN (13:02)
[2017-05-15] MEDS: MONTELUKAST SODIUM 10MG TABLET PO SCH (21:59)
[2017-05-15] MEDS: LEVEMIR FLEXTOUCH 100 UNIT/ML INSULIN PEN SQ SCH (22:00)
[2017-05-16] MEDS: NOVOLOG FLEXPEN (INSULIN ASPART) 100 UNITS/ML SQ SCH ×6 (08:15→18:10)
[2017-05-16] MEDS: POTASSIUM CHLORIDE 10 MEQ TAB PO SCH (09:28)
[2017-05-16] MEDS: DOCUSATE SODIUM 100 MG CAPSULE PO SCH ×2 (09:29→22:30)
[2017-05-16] MEDS: RIVAROXABAN 20 MG TABLET PO SCH (09:29)
[2017-05-16] MEDS: OXYBUTYNIN CHLORIDE 5MG TABLET PO SCH ×2 (09:29→22:31)
[2017-05-16] MEDS: PREGABALIN 25 MG CAPSULE PO SCH ×3 (09:30→22:30)
[2017-05-16] MEDS: FUROSEMIDE 40 MG TABLET PO SCH (09:30)
[2017-05-16] MEDS: ATORVASTATIN 20 MG TABLET PO SCH (09:30)
[2017-05-16] MEDS: ENALAPRIL 5 MG TABLET PO SCH (09:31)
[2017-05-16] MEDS: MAGNESIUM OXIDE 400 MG TABLET PO SCH ×2 (09:32→22:30)
[2017-05-16] MEDS: SERTRALINE HCL 50 MG TABLET PO SCH (09:33)
--- NOTE | 2017-05-16 11:40 | Occupational Therapy Tx Note ---
Occupational Therapy Tx Note - Treatment Note Tolerated: Good Total Time Spent With Patient: 30 (ADL) Occupational Therapy Treatment Note: Detail (S: Pt up in chair, feeling good today. O: Sit to stand and amb to shower bench with 2 wheeled walker and SBA. Doffed briefs, slipper socks and gown Indly. Pt completed showering in sitting and standing with SBA using hand held shower and grab bar, on 1.5 liters of oxygen. Pt became mildly short of breath with showering. Pt dried self Indly and donned shirt, briefs, pants and slipper socks Indly in sitting and standing. Pt amb to sink and completed oral hygiene Indly. Pt amb back to chair with 2 wheeled walker and SBA. A: Pt able to shower and complete total body dressing with SBA using 1.5 liters of oxygen. Pt became mildly short of breath with ADLs.) Occupational Therapy Problem List: Detail (1. Decreased Ind with showering 2. Decreased endurance needed for safe and Ind ADLs.) Occupational Therapy Goals: 1. Pt will be Ind with showering in sitting. 2. Pt will demonstrate improved endurance needed for safe and Ind ADLs Prognosis: Good Occupational Therapy Plan: OT 2-4 days per week to address self cares and endurance needed for safe and Ind ADLs.
[2017-05-16] MEDS: FLUTICASONE PROPIONATE 50MCG NASAL 16 GM BTL SCH (12:43)
--- NOTE | 2017-05-16 14:41 | Physical Therapy Tx Note ---
Physical Therapy Tx Note - Treatment Note Tolerated: Good Total Time Spent With Patient: 30 Physical Therapy Tx Note: Detail (Patient was ambulating to bathroom upon RELOCATION MANAGER arrival. Patient states feeling good today, with no new complaints. Patient transferred sit to and from stand independently. Patient ambulated 331 feet with wheeled walker SBA x1. Patient transferred sit to and from stand independently. Patient performed the following balance exercises x30 seconds each: feet together, feet together with looking up and down, feet together with looking side to side, feet together with pertubations, feet together with eyes closed, and tandem stance. Patient transferred sit to and from stand independently. Patient ambulated 5 feet with wheeled walker SBA x1. Patient performed the following exercises: marching x28 feet, sidestepping 14 feet each , walking backwards x28 feet, and squats x10 reps. Patient tolerated treatment well. Patient required several seated rest breaks with standing balance exercises, sidestepping, marching, and walking backwards due to fatigue. Patient displays decreased balance with feet together, feet together with looking up and down, feet together with looking side to side, feet together with pertubations, feet together with eyes closed, and tandem stance. Patient reports feeling tired after treatment. Patient was left seated in chair with call light within reach.) Physical Therapy Problem List: Detail (1. Impaired gait mechanics 2. Impaired balance 3. Inability to complete sustained physical activites as required in a home environment.) Physical Therapy Goals: 1. Pt. will demonstrate independence with bed mobility and supine to sit transfers. 2. Pt. will complete the Tinetti or Belle balance outcome assessment to assess fall risk level of patient and overall balance with different tasks. (Goal met). 3. Pt. will independently ambulate 100ft without the use of an AD displaying proper gait and balance mechanics with decreased sway of the trunk. 4. Pt. will improve Tinetti balance score to a 21/ 28 to indicate improved stability with ambulation. Prognosis: Good Physical Therapy Plan: Pt. will be seen Tuesday-Tuesday 1-2x/day. POC will include muscular endurance training, gait training, balance training, and bed mobility/transfers.
[2017-05-16] MEDS: NYSTATIN 15 GM POWDER TP SCH ×2 (18:12→22:31)
[2017-05-16] MEDS: LEVEMIR FLEXTOUCH 100 UNIT/ML INSULIN PEN SQ SCH (22:26)
[2017-05-16] MEDS: MONTELUKAST SODIUM 10MG TABLET PO SCH (22:31)
[2017-05-17] MEDS: NOVOLOG FLEXPEN (INSULIN ASPART) 100 UNITS/ML SQ SCH ×6 (07:56→17:40)
[2017-05-17] MEDS: MAGNESIUM OXIDE 400 MG TABLET PO SCH ×2 (09:05→22:15)
[2017-05-17] MEDS: PREGABALIN 25 MG CAPSULE PO SCH ×3 (09:05→22:15)
[2017-05-17] MEDS: POTASSIUM CHLORIDE 10 MEQ TAB PO SCH (09:05)
[2017-05-17] MEDS: RIVAROXABAN 20 MG TABLET PO SCH (09:05)
[2017-05-17] MEDS: DOCUSATE SODIUM 100 MG CAPSULE PO SCH ×2 (09:05→22:16)
[2017-05-17] MEDS: ENALAPRIL 5 MG TABLET PO SCH (09:05)
[2017-05-17] MEDS: OXYBUTYNIN CHLORIDE 5MG TABLET PO SCH ×2 (09:05→22:16)
[2017-05-17] MEDS: SERTRALINE HCL 50 MG TABLET PO SCH (09:06)
[2017-05-17] MEDS: FUROSEMIDE 40 MG TABLET PO SCH (09:06)
[2017-05-17] MEDS: ATORVASTATIN 20 MG TABLET PO SCH (09:06)
[2017-05-17] MEDS: FLUTICASONE PROPIONATE 50MCG NASAL 16 GM BTL SCH (09:09)
--- NOTE | 2017-05-17 10:02 | Physical Therapy Tx Note ---
Physical Therapy Tx Note - Treatment Note Tolerated: Good Total Time Spent With Patient: 35 Physical Therapy Tx Note: Detail (The patient was up in chair when PT arrived. The patient dressed independently and ambulated with wheeled walker to bathroom independently. The patient ambulated with wheeled walker a distance of 170 feet x1, 100 feet x 1 with supervision for safety. O2 sat. levels remained in the 90's. The patient completed balance exercises including standing with varying bases of support, turning and looking ans squats with support of walker x 5 reps. The patient was fatigued following treatment. The patient requested to stay in recliner with call light in reach.) Physical Therapy Problem List: Detail (1. Impaired gait mechanics 2. Impaired balance 3. Inability to complete sustained physical activites as required in a home environment.) Physical Therapy Goals: 1. Pt. will demonstrate independence with bed mobility and supine to sit transfers. 2. Pt. will complete the Tinetti or Belle balance outcome assessment to assess fall risk level of patient and overall balance with different tasks. (Goal met). 3. Pt. will independently ambulate 100ft without the use of an AD displaying proper gait and balance mechanics with decreased sway of the trunk. 4. Pt. will improve Tinetti balance score to a 21/ 28 to indicate improved stability with ambulation. Physical Therapy Plan: Pt. will be seen Tuesday-Tuesday 1-2x/day. POC will include muscular endurance training, gait training, balance training, and bed mobility/transfers.
--- NOTE | 2017-05-17 14:07 | Physical Therapy Tx Note ---
Physical Therapy Tx Note - Treatment Note Tolerated: Good Total Time Spent With Patient: 30 Physical Therapy Tx Note: Detail (Pt was asleep upon arrival in reclined chair. Pt was easily aroused and eager to go to the bathroom. Pt ambulated with front wheeled walker x 15 ft to bathroom. Pt was able to use toilet and do all self hygiene with stand by assist only. Pt completed ex's of LAQ, marches, hip adduction with pillow, ankle pumps, all x 15 bilaterally. Pt completed balance ex's of rocking anterior/ posterior and side to side with contact guard assist. Pt was able to stand feet together x 30 seconds x 2 reps. Pt ambulated x 100 ft with front wheeled walker and 75 ft. without walker with contact guard assist. Pt returned to chair and given call light and bedside table. Pt states no pain during or after treatment but states "tired" after treatment. Continue to progress ex's and ambulation without assistive device as nury.) Physical Therapy Problem List: Detail (1. Impaired gait mechanics 2. Impaired balance 3. Inability to complete sustained physical activites as required in a home environment.) Physical Therapy Goals: 1. Pt. will demonstrate independence with bed mobility and supine to sit transfers. 2. Pt. will complete the Tinetti or Belle balance outcome assessment to assess fall risk level of patient and overall balance with different tasks. (Goal met). 3. Pt. will independently ambulate 100ft without the use of an AD displaying proper gait and balance mechanics with decreased sway of the trunk. 4. Pt. will improve Tinetti balance score to a 21/ 28 to indicate improved stability with ambulation. Prognosis: Good Physical Therapy Plan: Pt. will be seen Tuesday-Tuesday 1-2x/day. POC will include muscular endurance training, gait training, balance training, and bed mobility/transfers.
[2017-05-17] MEDS: NYSTATIN 15 GM POWDER TP SCH ×2 (16:23→22:19)
[2017-05-17] MEDS: LEVEMIR FLEXTOUCH 100 UNIT/ML INSULIN PEN SQ SCH (22:14)
[2017-05-17] MEDS: MONTELUKAST SODIUM 10MG TABLET PO SCH (22:15)
[2017-05-18] MEDS: NOVOLOG FLEXPEN (INSULIN ASPART) 100 UNITS/ML SQ SCH ×6 (08:35→17:32)
[2017-05-18] MEDS: SERTRALINE HCL 50 MG TABLET PO SCH (09:21)
[2017-05-18] MEDS: RIVAROXABAN 20 MG TABLET PO SCH (09:21)
[2017-05-18] MEDS: FUROSEMIDE 40 MG TABLET PO SCH (09:21)
[2017-05-18] MEDS: POTASSIUM CHLORIDE 10 MEQ TAB PO SCH (09:21)
[2017-05-18] MEDS: DOCUSATE SODIUM 100 MG CAPSULE PO SCH ×2 (09:21→22:35)
[2017-05-18] MEDS: ATORVASTATIN 20 MG TABLET PO SCH (09:21)
[2017-05-18] MEDS: MAGNESIUM OXIDE 400 MG TABLET PO SCH ×2 (09:21→22:34)
[2017-05-18] MEDS: OXYBUTYNIN CHLORIDE 5MG TABLET PO SCH ×2 (09:21→22:35)
[2017-05-18] MEDS: PREGABALIN 25 MG CAPSULE PO SCH ×3 (09:21→22:34)
[2017-05-18] MEDS: FLUTICASONE PROPIONATE 50MCG NASAL 16 GM BTL SCH (09:22)
[2017-05-18] MEDS: ENALAPRIL 5 MG TABLET PO SCH (09:22)
--- NOTE | 2017-05-18 11:23 | Physical Therapy Tx Note ---
Physical Therapy Tx Note - Treatment Note Tolerated: Good Total Time Spent With Patient: 30 Physical Therapy Tx Note: Detail (Patient was sleeping reclined in chair upon COREROOM FOUNDRY LABORER arrival. Patient was easily awoken and eager to participate in treatment. Patient transferred sit to and from stand independently. Patient ambulated 60 feet with wheeled walker SBA x1. Patient ascended and descended 3 steps CGA x1 with using stairwell railing and walker. Patient ambulated 267 feet with wheeled walker SBA x1. Patient transferred sit to and from stand x3 independently. Patient performed the following balance exercises x30 seconds each: DLS on foam, DLS with looking up and down on foam, DLS with looking side to side on foam, feet together on foam, DLS with eyes closed on floor, tandem stance on floor, and DLS with pertubations on foam. Patient tolerated treatment well. Patient required several seated rest breaks with standing balance exercises due to fatigue. Patient displays decreased balance with balance exercises. Patient reports being tired after treatment. Patient was left seated in chair with call light within reach.) Physical Therapy Problem List: Detail (1. Impaired gait mechanics 2. Impaired balance 3. Inability to complete sustained physical activites as required in a home environment.) Physical Therapy Goals: 1. Pt. will demonstrate independence with bed mobility and supine to sit transfers. 2. Pt. will complete the Tinetti or Belle balance outcome assessment to assess fall risk level of patient and overall balance with different tasks. (Goal met). 3. Pt. will independently ambulate 100ft without the use of an AD displaying proper gait and balance mechanics with decreased sway of the trunk. 4. Pt. will improve Tinetti balance score to a 21/ 28 to indicate improved stability with ambulation. Prognosis: Good Physical Therapy Plan: Pt. will be seen Tuesday-Tuesday 1-2x/day. POC will include muscular endurance training, gait training, balance training, and bed mobility/transfers.
--- NOTE | 2017-05-18 15:51 | Physical Therapy Tx Note ---
Physical Therapy Tx Note - Treatment Note Tolerated: Good Total Time Spent With Patient: 30 Physical Therapy Tx Note: Detail (Patient was seated in chair upon ASSEMBLY SUPERVISOR arrival. Patient was agreeable to treatment. Patient transferred sit to and from stand independently. Patient ambulated 60 feet without assistive device CGA x1. Patient performed the following exercises x10 reps each: LAQ, seated isometric hip adduction, standing marching, standing hamstring curls, standing heel raises, standing toe raises, squats, standing hip abduction, and standing hip extension. Patient tolerated treatment well. Patient required several seated rest breaks with standing exercises due to fatigue. Patient displays increased fatigue with ambulation. Patient reports feeling tired after treatment. Patient was left seated in chair with call light within reach.) Physical Therapy Problem List: Detail (1. Impaired gait mechanics 2. Impaired balance 3. Inability to complete sustained physical activites as required in a home environment.) Physical Therapy Goals: 1. Pt. will demonstrate independence with bed mobility and supine to sit transfers. 2. Pt. will complete the Tinetti or Belle balance outcome assessment to assess fall risk level of patient and overall balance with different tasks. (Goal met). 3. Pt. will independently ambulate 100ft without the use of an AD displaying proper gait and balance mechanics with decreased sway of the trunk. 4. Pt. will improve Tinetti balance score to a 21/ 28 to indicate improved stability with ambulation. Prognosis: Good Physical Therapy Plan: Pt. will be seen Tuesday-Tuesday 1-2x/day. POC will include muscular endurance training, gait training, balance training, and bed mobility/transfers.
[2017-05-18] MEDS: MONTELUKAST SODIUM 10MG TABLET PO SCH (22:34)
[2017-05-18] MEDS: LEVEMIR FLEXTOUCH 100 UNIT/ML INSULIN PEN SQ SCH (22:35)
[2017-05-19] MEDS: NOVOLOG FLEXPEN (INSULIN ASPART) 100 UNITS/ML SQ SCH ×6 (08:48→18:33)
[2017-05-19] MEDS: SERTRALINE HCL 50 MG TABLET PO SCH (09:21)
[2017-05-19] MEDS: FUROSEMIDE 40 MG TABLET PO SCH (09:21)
[2017-05-19] MEDS: PREGABALIN 25 MG CAPSULE PO SCH ×3 (09:21→22:12)
[2017-05-19] MEDS: ATORVASTATIN 20 MG TABLET PO SCH (09:21)
[2017-05-19] MEDS: OXYBUTYNIN CHLORIDE 5MG TABLET PO SCH ×2 (09:21→22:13)
[2017-05-19] MEDS: ENALAPRIL 5 MG TABLET PO SCH (09:21)
[2017-05-19] MEDS: MAGNESIUM OXIDE 400 MG TABLET PO SCH ×2 (09:21→22:13)
[2017-05-19] MEDS: DOCUSATE SODIUM 100 MG CAPSULE PO SCH ×2 (09:21→22:12)
[2017-05-19] MEDS: RIVAROXABAN 20 MG TABLET PO SCH (09:21)
[2017-05-19] MEDS: POTASSIUM CHLORIDE 10 MEQ TAB PO SCH (09:22)
[2017-05-19] MEDS: FLUTICASONE PROPIONATE 50MCG NASAL 16 GM BTL SCH (09:23)
--- NOTE | 2017-05-19 10:32 | Physical Therapy Tx Note ---
Physical Therapy Tx Note - Treatment Note Tolerated: Good Total Time Spent With Patient: 35 Physical Therapy Tx Note: Detail (Patient states she's tired today. Patient transferred sit to and from stand independently. Patient ambulated 10 feet with wheeled walker SBA x1. Patient transferred sit to and from stand independently. Patient ambulated 331 feet with wheeled walker SBA x1. Patient transferred sit to and from stand independently. Patient performed the following exercises x15 reps each: standing heel raises, standing toe raises, seated marching, LAQ, seated hamstring curls with red theraband, seated hip abduction with red theraband, isometric hip adduction, abdominal isometrics, and glut squeezes. Patient tolerated treatment well. Patient displays decreased strength and endurance with standing heel raises, standing toe raises , abdominal isometrics, and glut squeezes. Patient reports LEs fatigued after treatment. Patient was left seated in chair with call light within reach.) Physical Therapy Problem List: Detail (1. Impaired gait mechanics 2. Impaired balance 3. Inability to complete sustained physical activites as required in a home environment.) Physical Therapy Goals: 1. Pt. will demonstrate independence with bed mobility and supine to sit transfers. 2. Pt. will complete the Tinetti or Belle balance outcome assessment to assess fall risk level of patient and overall balance with different tasks. (Goal met). 3. Pt. will independently ambulate 100ft without the use of an AD displaying proper gait and balance mechanics with decreased sway of the trunk. 4. Pt. will improve Tinetti balance score to a 21/ 28 to indicate improved stability with ambulation. Prognosis: Good Physical Therapy Plan: Pt. will be seen Tuesday-Tuesday 1-2x/day. POC will include muscular endurance training, gait training, balance training, and bed mobility/transfers.
--- NOTE | 2017-05-19 14:30 | Physical Therapy Tx Note ---
Physical Therapy Tx Note - Treatment Note Tolerated: Good Total Time Spent With Patient: 35 Physical Therapy Tx Note: Detail (Patient was reclined in chair upon ENVIRONMENTAL SUSTAINABILITY MANAGER arrival. Patient states feeling better this afternoon. Patient transferred sit to and from stand independently. Patient ambulated 70 feet without assistive device with 2L oxygen SBA x1. Patient transferred sit to and from stand independently. Patient ambulated 10 feet with wheeled walker SBA x1. Patient doffed nightgown, and donned pants and shirt independently. Patient transferred sit to and from stand independently. Patient performed the following exercises: standing marching x10, standing hip abduction x10, standing hip extension x10, standing hamstring curls x10, squats x10, feet together with eyes closed x30 seconds, feet together with pertubations, and stride stance. Patient tolerated treatment well. Patient displays decreased strength and endurance with standing exercises and ambulation without assistive device. Patient displays decreased balance with feet together with eyes closed , and tandem balance. Patient reports feeling tired after treatment. Patient was left seated in chair with call light within reach.) Physical Therapy Problem List: Detail (1. Impaired gait mechanics 2. Impaired balance 3. Inability to complete sustained physical activites as required in a home environment.) Physical Therapy Goals: 1. Pt. will demonstrate independence with bed mobility and supine to sit transfers. 2. Pt. will complete the Tinetti or Belle balance outcome assessment to assess fall risk level of patient and overall balance with different tasks. (Goal met). 3. Pt. will independently ambulate 100ft without the use of an AD displaying proper gait and balance mechanics with decreased sway of the trunk. 4. Pt. will improve Tinetti balance score to a 21/ 28 to indicate improved stability with ambulation. Prognosis: Good Physical Therapy Plan: Pt. will be seen Tuesday-Tuesday 1-2x/day. POC will include muscular endurance training, gait training, balance training, and bed mobility/transfers.
[2017-05-19] MEDS: LEVEMIR FLEXTOUCH 100 UNIT/ML INSULIN PEN SQ SCH (22:13)
[2017-05-19] MEDS: MONTELUKAST SODIUM 10MG TABLET PO SCH (22:13)
[2017-05-20] MEDS: NOVOLOG FLEXPEN (INSULIN ASPART) 100 UNITS/ML SQ SCH ×6 (08:03→17:25)
[2017-05-20] MEDS: MAGNESIUM OXIDE 400 MG TABLET PO SCH ×2 (09:37→21:25)
[2017-05-20] MEDS: ATORVASTATIN 20 MG TABLET PO SCH (09:37)
[2017-05-20] MEDS: ENALAPRIL 5 MG TABLET PO SCH (09:37)
[2017-05-20] MEDS: FUROSEMIDE 40 MG TABLET PO SCH (09:37)
[2017-05-20] MEDS: OXYBUTYNIN CHLORIDE 5MG TABLET PO SCH ×2 (09:38→21:25)
[2017-05-20] MEDS: POTASSIUM CHLORIDE 10 MEQ TAB PO SCH (09:38)
[2017-05-20] MEDS: PREGABALIN 25 MG CAPSULE PO SCH ×3 (09:38→21:25)
[2017-05-20] MEDS: SERTRALINE HCL 50 MG TABLET PO SCH (09:38)
[2017-05-20] MEDS: RIVAROXABAN 20 MG TABLET PO SCH (09:38)
[2017-05-20] MEDS: DOCUSATE SODIUM 100 MG CAPSULE PO SCH ×2 (09:38→21:25)
--- NOTE | 2017-05-20 09:57 | Physical Therapy Tx Note ---
Physical Therapy Tx Note - Treatment Note Total Time Spent With Patient: 30 Physical Therapy Tx Note: Detail (Pt. reports she was put back onto 2L of oxygen yesterday morning. Pt. reports she is doing well today. Pt. completed ther ex of standing marches x10 each leg, going up on toes and then heels x10, mini squats x10, stability training on blue foam pad standing with wide base of support for 30 seconds, one step in for 30 seconds, and feet together 30 seconds , side to side weight shifts on foam pad, 10x each direction, seated core isometrics with alternating arm to leg marches x10 each side, and adductor pillow squeezes x10, 3 second holds. For all standing exercises, the pt. used her front wheeled walker for support. Pt. ambulated roughly 150ft independently CGAx1 with oxygen. Pt. tolerated treatment well today. Pt. exhibited slight instability with a narrower base of support, using hip strategies to correct balance. Continue per POC. Pt. was left seated, oxygen hooked up, and call light available. Nursing was notified.) Physical Therapy Problem List: Detail (1. Impaired gait mechanics 2. Impaired balance 3. Inability to complete sustained physical activites as required in a home environment.) Physical Therapy Goals: 1. Pt. will demonstrate independence with bed mobility and supine to sit transfers. 2. Pt. will complete the Tinetti or Belle balance outcome assessment to assess fall risk level of patient and overall balance with different tasks. (Goal met). 3. Pt. will independently ambulate 100ft without the use of an AD displaying proper gait and balance mechanics with decreased sway of the trunk. 4. Pt. will improve Tinetti balance score to a 21/ 28 to indicate improved stability with ambulation. Prognosis: Good Physical Therapy Plan: Pt. will be seen Tuesday-Tuesday 1-2x/day. POC will include muscular endurance training, gait training, balance training, and bed mobility/transfers.
--- NOTE | 2017-05-20 14:38 | Physical Therapy Tx Note ---
Physical Therapy Tx Note - Treatment Note Tolerated: Good Total Time Spent With Patient: 35 Physical Therapy Tx Note: Detail (Patient states no new complaints. Patient was reclined in chair upon MACHINE FELLER arrival. Patient transferred sit to and from stand independently. Patient ambulated 326 feet without assistive device on 1L oxygen CGA/SBA x1. Patient transferred sit to and from stand independently. Patient performed the following exercises x30 seconds each: DLS on foam, DLS on foam looking up and down, DLS on foam looking side to side, DLS on foam eyes closed, DLS on foam with pertubations, tandem stance on floor. Patient performed the following standing exercises x15 reps each: marching, hip abduction, and hip extension. Patient ambulated 12 feet x2 with wheeled walker SBA x1. Patient transferred sit to and from stand independently. Patient tolerated treatment well. Patient displays decreased balance with DLS on foam eyes closed, DLS on foam with pertubations, and stride stance on floor. Patient required several seated rest breaks with standing exercises due to fatigue. Patient was left seated in chair with 1L oxygen and call light within reach.) Physical Therapy Problem List: Detail (1. Impaired gait mechanics 2. Impaired balance 3. Inability to complete sustained physical activites as required in a home environment.) Physical Therapy Goals: 1. Pt. will demonstrate independence with bed mobility and supine to sit transfers. 2. Pt. will complete the Tinetti or Belle balance outcome assessment to assess fall risk level of patient and overall balance with different tasks. (Goal met). 3. Pt. will independently ambulate 100ft without the use of an AD displaying proper gait and balance mechanics with decreased sway of the trunk. 4. Pt. will improve Tinetti balance score to a 21/ 28 to indicate improved stability with ambulation. Prognosis: Good Physical Therapy Plan: Pt. will be seen Tuesday-Tuesday 1-2x/day. POC will include muscular endurance training, gait training, balance training, and bed mobility/transfers.
[2017-05-20] MEDS: MONTELUKAST SODIUM 10MG TABLET PO SCH (21:25)
[2017-05-20] MEDS: LEVEMIR FLEXTOUCH 100 UNIT/ML INSULIN PEN SQ SCH (21:26)
[2017-05-21] MEDS: NOVOLOG FLEXPEN (INSULIN ASPART) 100 UNITS/ML SQ SCH ×6 (08:07→17:16)
[2017-05-21] MEDS: ALBUTEROL SULFATE (0.083%) 2.5 MG/3 ML NEB INH PRN (09:01)
[2017-05-21] MEDS: PREGABALIN 25 MG CAPSULE PO SCH ×3 (10:13→21:57)
[2017-05-21] MEDS: POTASSIUM CHLORIDE 10 MEQ TAB PO SCH (10:13)
[2017-05-21] MEDS: DOCUSATE SODIUM 100 MG CAPSULE PO SCH ×2 (10:13→21:58)
[2017-05-21] MEDS: RIVAROXABAN 20 MG TABLET PO SCH (10:13)
[2017-05-21] MEDS: OXYBUTYNIN CHLORIDE 5MG TABLET PO SCH ×2 (10:14→21:58)
[2017-05-21] MEDS: ATORVASTATIN 20 MG TABLET PO SCH (10:14)
[2017-05-21] MEDS: MAGNESIUM OXIDE 400 MG TABLET PO SCH ×2 (10:14→21:57)
[2017-05-21] MEDS: FUROSEMIDE 40 MG TABLET PO SCH (10:14)
[2017-05-21] MEDS: SERTRALINE HCL 50 MG TABLET PO SCH (10:15)
[2017-05-21] MEDS: ENALAPRIL 5 MG TABLET PO SCH (10:15)
[2017-05-21] MEDS: FLUTICASONE PROPIONATE 50MCG NASAL 16 GM BTL SCH (17:53)
[2017-05-21] MEDS: MONTELUKAST SODIUM 10MG TABLET PO SCH (21:57)
[2017-05-21] MEDS: LEVEMIR FLEXTOUCH 100 UNIT/ML INSULIN PEN SQ SCH (21:58)
[2017-05-22] MEDS: NOVOLOG FLEXPEN (INSULIN ASPART) 100 UNITS/ML SQ SCH ×6 (08:09→17:57)
[2017-05-22] MEDS: PREGABALIN 25 MG CAPSULE PO SCH ×3 (09:05→22:16)
[2017-05-22] MEDS: POTASSIUM CHLORIDE 10 MEQ TAB PO SCH (09:05)
[2017-05-22] MEDS: RIVAROXABAN 20 MG TABLET PO SCH (09:05)
[2017-05-22] MEDS: DOCUSATE SODIUM 100 MG CAPSULE PO SCH ×2 (09:06→22:16)
[2017-05-22] MEDS: MAGNESIUM OXIDE 400 MG TABLET PO SCH ×2 (09:06→22:16)
[2017-05-22] MEDS: SERTRALINE HCL 50 MG TABLET PO SCH (09:06)
[2017-05-22] MEDS: ENALAPRIL 5 MG TABLET PO SCH (09:06)
[2017-05-22] MEDS: ATORVASTATIN 20 MG TABLET PO SCH (09:06)
[2017-05-22] MEDS: FUROSEMIDE 40 MG TABLET PO SCH (09:06)
[2017-05-22] MEDS: OXYBUTYNIN CHLORIDE 5MG TABLET PO SCH ×2 (09:07→22:16)
[2017-05-22] MEDS: LEVEMIR FLEXTOUCH 100 UNIT/ML INSULIN PEN SQ SCH (22:16)
[2017-05-22] MEDS: MONTELUKAST SODIUM 10MG TABLET PO SCH (22:16)
[2017-05-23] MEDS: NOVOLOG FLEXPEN (INSULIN ASPART) 100 UNITS/ML SQ SCH ×6 (08:14→17:47)
[2017-05-23] MEDS: DOCUSATE SODIUM 100 MG CAPSULE PO SCH ×2 (09:21→21:54)
[2017-05-23] MEDS: ENALAPRIL 5 MG TABLET PO SCH (09:21)
[2017-05-23] MEDS: ATORVASTATIN 20 MG TABLET PO SCH (09:21)
[2017-05-23] MEDS: POTASSIUM CHLORIDE 10 MEQ TAB PO SCH (09:21)
[2017-05-23] MEDS: PREGABALIN 25 MG CAPSULE PO SCH ×3 (09:21→21:54)
[2017-05-23] MEDS: MAGNESIUM OXIDE 400 MG TABLET PO SCH ×2 (09:22→21:54)
[2017-05-23] MEDS: OXYBUTYNIN CHLORIDE 5MG TABLET PO SCH ×2 (09:22→21:54)
[2017-05-23] MEDS: SERTRALINE HCL 50 MG TABLET PO SCH (09:22)
[2017-05-23] MEDS: FUROSEMIDE 40 MG TABLET PO SCH (09:22)
[2017-05-23] MEDS: RIVAROXABAN 20 MG TABLET PO SCH (09:22)
[2017-05-23] MEDS: FLUTICASONE PROPIONATE 50MCG NASAL 16 GM BTL SCH ×3 (09:31→13:57)
--- NOTE | 2017-05-23 11:14 | Physical Therapy Tx Note ---
Physical Therapy Tx Note - Treatment Note Tolerated: Good Total Time Spent With Patient: 30 Physical Therapy Tx Note: Detail (Patient states no complaints today. Patient transferred sit to and from stand independently. Patient ambulated 54 feet with wheeled walker SBA x1. Patient transferred sit to and from stand SBA x1. Patient performed the following exercises x15 reps each: standing marching, standing hamstring curls, standing hip abduction, standing hip extension, standing heel raises, standing toe raises, abdominal isometrics, and glut squeezes. Patient tolerated treatment well. Patient displays decreased strength and endurance with standing exercises, glut squeezes, and abdominal isometrics. Patient reports tired after treatment. Patient was left seated in chair with call light within reach.) Physical Therapy Problem List: Detail (1. Impaired gait mechanics 2. Impaired balance 3. Inability to complete sustained physical activites as required in a home environment.) Physical Therapy Goals: 1. Pt. will demonstrate independence with bed mobility and supine to sit transfers. 2. Pt. will complete the Tinetti or Belle balance outcome assessment to assess fall risk level of patient and overall balance with different tasks. (Goal met). 3. Pt. will independently ambulate 100ft without the use of an AD displaying proper gait and balance mechanics with decreased sway of the trunk. 4. Pt. will improve Tinetti balance score to a 21/ 28 to indicate improved stability with ambulation. Prognosis: Good Physical Therapy Plan: Pt. will be seen Tuesday-Tuesday 1-2x/day. POC will include muscular endurance training, gait training, balance training, and bed mobility/transfers.
--- NOTE | 2017-05-23 14:49 | Physical Therapy Tx Note ---
Physical Therapy Tx Note - Treatment Note Tolerated: Good Total Time Spent With Patient: 35 Physical Therapy Tx Note: Detail (The patient was up in chair when PT arrived. The patient ambulated with 2 L of O2 without device with CG/SBA of 1 for safety due to occasional stagger steps. The patient's balance was retested and remains which is in the moderate risk for fall category. The patient completed balance exercises which included standing with varying bases of support, picking up objects , lifting arms overhead and reaching forward.) Physical Therapy Problem List: Detail (1. Impaired gait mechanics 2. Impaired balance 3. Inability to complete sustained physical activites as required in a home environment.) Physical Therapy Goals: 1. Pt. will demonstrate independence with bed mobility and supine to sit transfers. 2. Pt. will complete the Tinetti or Belle balance outcome assessment to assess fall risk level of patient and overall balance with different tasks. (Goal met). 3. Pt. will independently ambulate 100ft without the use of an AD displaying proper gait and balance mechanics with decreased sway of the trunk. 4. Pt. will improve Tinetti balance score to a 21/ 28 to indicate improved stability with ambulation. Physical Therapy Plan: Pt. will be seen Tuesday-Tuesday 1-2x/day. POC will include muscular endurance training, gait training, balance training, and bed mobility/transfers.
[2017-05-23] MEDS: MONTELUKAST SODIUM 10MG TABLET PO SCH (21:54)
[2017-05-23] MEDS: LEVEMIR FLEXTOUCH 100 UNIT/ML INSULIN PEN SQ SCH (21:54)
[2017-05-24] MEDS: NOVOLOG FLEXPEN (INSULIN ASPART) 100 UNITS/ML SQ SCH ×6 (08:28→18:04)
[2017-05-24] MEDS: ALBUTEROL SULFATE (0.083%) 2.5 MG/3 ML NEB INH PRN (09:00)
[2017-05-24] MEDS: DOCUSATE SODIUM 100 MG CAPSULE PO SCH ×2 (09:26→21:51)
[2017-05-24] MEDS: OXYBUTYNIN CHLORIDE 5MG TABLET PO SCH ×2 (09:27→21:51)
[2017-05-24] MEDS: FLUTICASONE PROPIONATE 50MCG NASAL 16 GM BTL SCH (09:27)
[2017-05-24] MEDS: POTASSIUM CHLORIDE 10 MEQ TAB PO SCH (09:27)
[2017-05-24] MEDS: FUROSEMIDE 40 MG TABLET PO SCH (09:28)
[2017-05-24] MEDS: ATORVASTATIN 20 MG TABLET PO SCH (09:28)
[2017-05-24] MEDS: ENALAPRIL 5 MG TABLET PO SCH (09:29)
[2017-05-24] MEDS: PREGABALIN 25 MG CAPSULE PO SCH ×3 (09:29→21:51)
[2017-05-24] MEDS: MAGNESIUM OXIDE 400 MG TABLET PO SCH ×2 (09:29→21:51)
[2017-05-24] MEDS: SERTRALINE HCL 50 MG TABLET PO SCH (09:31)
[2017-05-24] MEDS: RIVAROXABAN 20 MG TABLET PO SCH (09:31)
--- NOTE | 2017-05-24 11:27 | Physical Therapy Tx Note ---
Physical Therapy Tx Note - Treatment Note Total Time Spent With Patient: 30 Physical Therapy Tx Note: Detail (Pt was sitting in recliner in reclined position with o2 upon arrival. When PT arrived, Pt was going home to family's home to visit ailing father. CELL BUILDER assisted Pt to bathroom. Pt used restroom indepentently. SPTA assisted Pt in ambulation for 212 feet without assistive device with contact gaurd. Pt required cueing to maintain good posture. Pt was put in wheel chair and and pushed out to her brothers vehicle. Pt was transferred into vehicle.) Physical Therapy Problem List: Detail (1. Impaired gait mechanics 2. Impaired balance 3. Inability to complete sustained physical activites as required in a home environment.) Physical Therapy Goals: 1. Pt. will demonstrate independence with bed mobility and supine to sit transfers. Goal met. 2. Pt. will complete the Tinetti or Belle balance outcome assessment to assess fall risk level of patient and overall balance with different tasks. (Goal met). 3. Pt. will independently ambulate 100ft without the use of an AD displaying proper gait and balance mechanics with decreased sway of the trunk. Goal met. 4. Pt. will improve Tinetti balance score to a 21/28 to indicate improved stability with ambulation. Prognosis: Good Physical Therapy Plan: Pt. will be seen Tuesday-Tuesday 1-2x/day. POC will include muscular endurance training, gait training, balance training, and bed mobility/transfers.
[2017-05-24] MEDS: ACETAMINOPHEN 325 MG TAB PO PRN (18:08)
[2017-05-24] MEDS: MONTELUKAST SODIUM 10MG TABLET PO SCH (21:51)
[2017-05-24] MEDS: LEVEMIR FLEXTOUCH 100 UNIT/ML INSULIN PEN SQ SCH (21:52)
[2017-05-25] MEDS: NOVOLOG FLEXPEN (INSULIN ASPART) 100 UNITS/ML SQ SCH ×6 (08:06→17:50)
[2017-05-25] MEDS: DOCUSATE SODIUM 100 MG CAPSULE PO SCH ×2 (09:33→21:14)
[2017-05-25] MEDS: FUROSEMIDE 40 MG TABLET PO SCH (09:34)
[2017-05-25] MEDS: ATORVASTATIN 20 MG TABLET PO SCH (09:34)
[2017-05-25] MEDS: OXYBUTYNIN CHLORIDE 5MG TABLET PO SCH ×2 (09:34→21:14)
[2017-05-25] MEDS: POTASSIUM CHLORIDE 10 MEQ TAB PO SCH (09:34)
[2017-05-25] MEDS: PREGABALIN 25 MG CAPSULE PO SCH ×3 (09:36→21:14)
[2017-05-25] MEDS: MAGNESIUM OXIDE 400 MG TABLET PO SCH ×2 (09:36→21:15)
[2017-05-25] MEDS: ENALAPRIL 5 MG TABLET PO SCH (09:37)
[2017-05-25] MEDS: RIVAROXABAN 20 MG TABLET PO SCH (09:37)
[2017-05-25] MEDS: SERTRALINE HCL 50 MG TABLET PO SCH (09:37)
--- NOTE | 2017-05-25 10:42 | Physical Therapy Tx Note ---
Physical Therapy Tx Note - Treatment Note Tolerated: Good Total Time Spent With Patient: 30 Physical Therapy Tx Note: Detail (The patient was up in chair without O2 when PT arrived . O2 sat was 85. The patient ambulated 13 feet without device without O2 sat dropped to 80/79 . 2L of O2 was placed back on and sat levels returned to 92. The patient ambulated without device 108 feet x 1 with 2 L of O2, increased postural sway and decreased stride length were noted today. The patient completed balance exercises including: standing on foam with varying bases of support, standing on firm surface with varying bases of support. The patient lost her balance x 1 with mid stride position. The patient was instructed to use O 2 when showering this am. More instability was noted this am.) Physical Therapy Problem List: Detail (1. Impaired gait mechanics 2. Impaired balance 3. Inability to complete sustained physical activites as required in a home environment.) Physical Therapy Goals: 1. Pt. will demonstrate independence with bed mobility and supine to sit transfers. Goal met. 2. Pt. will complete the Tinetti or Belle balance outcome assessment to assess fall risk level of patient and overall balance with different tasks. (Goal met). 3. Pt. will independently ambulate 100ft without the use of an AD displaying proper gait and balance mechanics with decreased sway of the trunk. Goal met. 4. Pt. will improve Tinetti balance score to a 21/28 to indicate improved stability with ambulation. Physical Therapy Plan: Pt. will be seen Tuesday-Tuesday 1-2x/day. POC will include muscular endurance training, gait training, balance training, and bed mobility/transfers.
--- NOTE | 2017-05-25 15:37 | Physical Therapy Tx Note ---
Physical Therapy Tx Note - Treatment Note Tolerated: Good Total Time Spent With Patient: 35 Physical Therapy Tx Note: Detail (Patient states right hip sore today. Patient transferred sit to and from stand independently. Patient ambulated 60 feet without assistive with 2L oxygen. Patient performed the following balance exercises x30 seconds each: feet together on foam, DLS on foam, weight shift A/ P on foam, weight shift lateral on foam, DLS with eyes closed on foam, DLS with pertubations on foam, DLS with looking side to side on foam, DLS with looking up and down on foam, and stride stance on floor. Patient performed the following exercises x15 reps each: seated marching, abdominal isometrics, glut squeezes, standing heel raises, standing toe raises, standing hip abduction, and standing hip extension. Patient ambulated 10 feet x2 without assistive device with 2L oxygen. Patient transferred sit to and from stand independently. Patient tolerated treatment well. Patient required several seated rest breaks with standing and balance exercises due to fatigue. Patient displays decreased balance with weight shift A/P on foam, lateral weight shift on foam, tandem stance on floor, DLS with eyes closed, and DLS with looking side to side. Patient displays decreased strength and endurance with abdominal isometrics, standing toe raises, standing hip abduction, and standing hip extension. Patient was left seated in chair with 2L oxygen and call light within reach.) Physical Therapy Problem List: Detail (1. Impaired gait mechanics 2. Impaired balance 3. Inability to complete sustained physical activites as required in a home environment.) Physical Therapy Goals: 1. Pt. will demonstrate independence with bed mobility and supine to sit transfers. Goal met. 2. Pt. will complete the Tinetti or Belle balance outcome assessment to assess fall risk level of patient and overall balance with different tasks. (Goal met). 3. Pt. will independently ambulate 100ft without the use of an AD displaying proper gait and balance mechanics with decreased sway of the trunk. Goal met. 4. Pt. will improve Tinetti balance score to a 21/28 to indicate improved stability with ambulation. Prognosis: Good Physical Therapy Plan: Pt. will be seen Tuesday-Tuesday 1-2x/day. POC will include muscular endurance training, gait training, balance training, and bed mobility/transfers.
[2017-05-25] MEDS: MONTELUKAST SODIUM 10MG TABLET PO SCH (21:14)
[2017-05-25] MEDS: LEVEMIR FLEXTOUCH 100 UNIT/ML INSULIN PEN SQ SCH (21:15)
[2017-05-26 06:58] LABS: BLOOD UREA NITROGEN 36 mg/dL (8-23); CREATININE 0.9 mg/dL (0.5-0.9); EST GLOMERULAR FILTRATION RATE > 60 mL/min; GLUCOSE,RANDOM 278 mg/dL (74-109)
[2017-05-26] MEDS: NOVOLOG FLEXPEN (INSULIN ASPART) 100 UNITS/ML SQ SCH ×6 (08:19→17:35)
[2017-05-26] MEDS: DOCUSATE SODIUM 100 MG CAPSULE PO SCH ×2 (09:46→21:22)
[2017-05-26] MEDS: OXYBUTYNIN CHLORIDE 5MG TABLET PO SCH ×2 (09:46→21:22)
[2017-05-26] MEDS: PREGABALIN 25 MG CAPSULE PO SCH ×2 (09:46→21:22)
[2017-05-26] MEDS: POTASSIUM CHLORIDE 10 MEQ TAB PO SCH (10:34)
[2017-05-26] MEDS: MAGNESIUM OXIDE 400 MG TABLET PO SCH (10:35)
[2017-05-26] MEDS: ATORVASTATIN 20 MG TABLET PO SCH (10:35)
[2017-05-26] MEDS: FUROSEMIDE 40 MG TABLET PO SCH (10:35)
[2017-05-26] MEDS: ENALAPRIL 5 MG TABLET PO SCH (10:35)
[2017-05-26] MEDS: RIVAROXABAN 20 MG TABLET PO SCH (10:36)
[2017-05-26] MEDS: SERTRALINE HCL 50 MG TABLET PO SCH (10:36)
--- NOTE | 2017-05-26 12:54 | Physical Therapy Tx Note ---
Physical Therapy Tx Note - Treatment Note Tolerated: Good Total Time Spent With Patient: 35 Physical Therapy Tx Note: Detail (Patient states low back is sore today. Patient was standing upon MIXER DIAMOND POWDER arrival. Patient ambulated 10 feet SBA x1. Patient transferred sit to and from stand independently. Patient ambulated 200 feet with 2L portable O2 SBA x1. Patient transferred sit to and from stand independently. Patient performed the following balance exercises x30 seconds each: A/P weight shift on foam, lateral weight shift on foam, feet together on foam, feet together with pertubations on foam, DLS with reaching and tapping therapist hands in various locations, DLS with eyes closed on foam, and tandem stance on floor. Patient performed the following exercises x10 reps each: standing marching, standing hamstring curls, standing hip abduction, and standing hip extension. Patient tolerated treatment well. Patient displays decreased strength and endurance with standing hip extension, standing hip abduction, standing marching, and standing hamstring curls. Patient displays decreased balance with A/P weight shift on foam, DLS with eyes closed, feet together on foam, feet together with pertubations, tandem stance, and DLS with reaching and tapping hand in various locations. Patient required several seated rest breaks with standing balance, hip extension, hip abduction, marching , and hamstring curls. Patient was left seated in chair with call light within reach.) Physical Therapy Problem List: Detail (1. Impaired gait mechanics 2. Impaired balance 3. Inability to complete sustained physical activites as required in a home environment.) Physical Therapy Goals: 1. Pt. will demonstrate independence with bed mobility and supine to sit transfers. Goal met. 2. Pt. will complete the Tinetti or Belle balance outcome assessment to assess fall risk level of patient and overall balance with different tasks. (Goal met). 3. Pt. will independently ambulate 100ft without the use of an AD displaying proper gait and balance mechanics with decreased sway of the trunk. Goal met. 4. Pt. will improve Tinetti balance score to a 21/28 to indicate improved stability with ambulation. Prognosis: Good Physical Therapy Plan: Pt. will be seen Tuesday-Tuesday 1-2x/day. POC will include muscular endurance training, gait training, balance training, and bed mobility/transfers.
--- NOTE | 2017-05-26 14:58 | Physical Therapy Tx Note ---
Physical Therapy Tx Note - Treatment Note Tolerated: Good Total Time Spent With Patient: 40 Physical Therapy Tx Note: Detail (Patient complains of low back soreness. Patient was seated in chair upon CHAIR MAKER arrival. Patient transferred sit to and from stand independently. Patient ambulated 217 feet with 2L O2 SBA x1. Patient transferred sit to and from stand independently. Patient performed the Nustep L1 x10 minutes. Patient ambulated 90 feet with 2L O2 SBA x1. Patient transferred sit to and from stand independently. Patient ambulated 30 feet with 2L O2 SBA x1. Patient performed the following exercises at railing: marching x64 feet, sidestepping x32 feet bilateral, and walking backwards x32 feet. Patient transferred sit to and from stand independently. Patient ambulated 60 feet with 2L O2 SBA x1. Patient tolerated treatment well. Patient required one seated rest break with exercises at railing due to fatigue. Patient displays some shortness of breath with ambulation and Nustep. Patient reports fatigued after treatment. Patient was left seated in chair with call light within reach.) Physical Therapy Problem List: Detail (1. Impaired gait mechanics 2. Impaired balance 3. Inability to complete sustained physical activites as required in a home environment.) Physical Therapy Goals: 1. Pt. will demonstrate independence with bed mobility and supine to sit transfers. Goal met. 2. Pt. will complete the Tinetti or Belle balance outcome assessment to assess fall risk level of patient and overall balance with different tasks. (Goal met). 3. Pt. will independently ambulate 100ft without the use of an AD displaying proper gait and balance mechanics with decreased sway of the trunk. Goal met. 4. Pt. will improve Tinetti balance score to a 21/28 to indicate improved stability with ambulation. Physical Therapy Plan: Pt. will be seen Tuesday-Tuesday 1-2x/day. POC will include muscular endurance training, gait training, balance training, and bed mobility/transfers.
[2017-05-26] MEDS: FLUTICASONE PROPIONATE 50MCG NASAL 16 GM BTL SCH ×2 (17:35→17:36)
[2017-05-26] MEDS: MONTELUKAST SODIUM 10MG TABLET PO SCH (21:22)
[2017-05-26] MEDS: LEVEMIR FLEXTOUCH 100 UNIT/ML INSULIN PEN SQ SCH (21:23)
[2017-05-27] MEDS: NOVOLOG FLEXPEN (INSULIN ASPART) 100 UNITS/ML SQ SCH ×6 (08:16→20:58)
[2017-05-27] MEDS: DOCUSATE SODIUM 100 MG CAPSULE PO SCH ×3 (08:25→22:18)
[2017-05-27] MEDS: PREGABALIN 25 MG CAPSULE PO SCH ×3 (08:25→22:18)
[2017-05-27] MEDS: ATORVASTATIN 20 MG TABLET PO SCH ×2 (08:25→11:30)
[2017-05-27] MEDS: SERTRALINE HCL 50 MG TABLET PO SCH ×2 (08:26→11:31)
[2017-05-27] MEDS: RIVAROXABAN 20 MG TABLET PO SCH ×2 (08:26→11:31)
[2017-05-27] MEDS: FUROSEMIDE 20 MG TABLET PO SCH ×2 (08:26→11:30)
[2017-05-27] MEDS: POTASSIUM CHLORIDE 10 MEQ TAB PO SCH ×2 (08:26→11:30)
[2017-05-27] MEDS: OXYBUTYNIN CHLORIDE 5MG TABLET PO SCH ×3 (08:26→22:18)
[2017-05-27] MEDS: FLUTICASONE PROPIONATE 50MCG NASAL 16 GM BTL SCH ×2 (08:26→11:30)
[2017-05-27] MEDS: ENALAPRIL 5 MG TABLET PO SCH ×2 (08:26→11:31)
--- NOTE | 2017-05-27 14:22 | Physical Therapy Tx Note ---
Physical Therapy Tx Note - Treatment Note Physical Therapy Tx Note: Detail (The patient was not seen today since the patient was out visiting her ailing father.) Physical Therapy Problem List: Detail (1. Impaired gait mechanics 2. Impaired balance 3. Inability to complete sustained physical activites as required in a home environment.) Physical Therapy Goals: 1. Pt. will demonstrate independence with bed mobility and supine to sit transfers. Goal met. 2. Pt. will complete the Tinetti or Belle balance outcome assessment to assess fall risk level of patient and overall balance with different tasks. (Goal met). 3. Pt. will independently ambulate 100ft without the use of an AD displaying proper gait and balance mechanics with decreased sway of the trunk. Goal met. 4. Pt. will improve Tinetti balance score to a 21/28 to indicate improved stability with ambulation. Physical Therapy Plan: Pt. will be seen Tuesday-Tuesday 1-2x/day. POC will include muscular endurance training, gait training, balance training, and bed mobility/transfers.
[2017-05-27] MEDS: ACETAMINOPHEN 325 MG TAB PO PRN (20:05)
[2017-05-27] MEDS: MONTELUKAST SODIUM 10MG TABLET PO SCH (22:18)
[2017-05-28] MEDS: LEVEMIR FLEXTOUCH 100 UNIT/ML INSULIN PEN SQ SCH ×2 (00:12→21:50)
[2017-05-28] MEDS: NOVOLOG FLEXPEN (INSULIN ASPART) 100 UNITS/ML SQ SCH ×6 (07:40→17:09)
[2017-05-28] MEDS: OXYBUTYNIN CHLORIDE 5MG TABLET PO SCH ×2 (10:24→21:49)
[2017-05-28] MEDS: ATORVASTATIN 20 MG TABLET PO SCH (10:24)
[2017-05-28] MEDS: POTASSIUM CHLORIDE 10 MEQ TAB PO SCH (10:24)
[2017-05-28] MEDS: PREGABALIN 25 MG CAPSULE PO SCH ×2 (10:24→21:49)
[2017-05-28] MEDS: FUROSEMIDE 20 MG TABLET PO SCH (10:24)
[2017-05-28] MEDS: SERTRALINE HCL 50 MG TABLET PO SCH (10:24)
[2017-05-28] MEDS: ENALAPRIL 5 MG TABLET PO SCH (10:25)
[2017-05-28] MEDS: DOCUSATE SODIUM 100 MG CAPSULE PO SCH ×2 (10:25→21:49)
[2017-05-28] MEDS: FLUTICASONE PROPIONATE 50MCG NASAL 16 GM BTL SCH (19:30)
[2017-05-28] MEDS: MONTELUKAST SODIUM 10MG TABLET PO SCH (21:49)
[2017-05-29] MEDS: NOVOLOG FLEXPEN (INSULIN ASPART) 100 UNITS/ML SQ SCH ×6 (08:13→18:00)
[2017-05-29] MEDS: DOCUSATE SODIUM 100 MG CAPSULE PO SCH ×2 (09:53→21:48)
[2017-05-29] MEDS: FLUTICASONE PROPIONATE 50MCG NASAL 16 GM BTL SCH (09:53)
[2017-05-29] MEDS: OXYBUTYNIN CHLORIDE 5MG TABLET PO SCH ×2 (09:54→21:48)
[2017-05-29] MEDS: POTASSIUM CHLORIDE 10 MEQ TAB PO SCH (09:54)
[2017-05-29] MEDS: ATORVASTATIN 20 MG TABLET PO SCH (09:56)
[2017-05-29] MEDS: FUROSEMIDE 20 MG TABLET PO SCH (09:56)
[2017-05-29] MEDS: PREGABALIN 25 MG CAPSULE PO SCH ×2 (09:57→21:48)
[2017-05-29] MEDS: ENALAPRIL 5 MG TABLET PO SCH (09:57)
[2017-05-29] MEDS: SERTRALINE HCL 50 MG TABLET PO SCH (09:58)
[2017-05-29] MEDS: MONTELUKAST SODIUM 10MG TABLET PO SCH (21:48)
[2017-05-29] MEDS: LEVEMIR FLEXTOUCH 100 UNIT/ML INSULIN PEN SQ SCH (21:51)
[2017-05-30] MEDS: NOVOLOG FLEXPEN (INSULIN ASPART) 100 UNITS/ML SQ SCH ×6 (08:59→18:29)
[2017-05-30] MEDS: DOCUSATE SODIUM 100 MG CAPSULE PO SCH ×2 (09:05→22:34)
[2017-05-30] MEDS: POTASSIUM CHLORIDE 10 MEQ TAB PO SCH (09:06)
[2017-05-30] MEDS: OXYBUTYNIN CHLORIDE 5MG TABLET PO SCH ×2 (09:06→22:34)
[2017-05-30] MEDS: FUROSEMIDE 20 MG TABLET PO SCH (09:07)
[2017-05-30] MEDS: ATORVASTATIN 20 MG TABLET PO SCH (09:07)
[2017-05-30] MEDS: PREGABALIN 25 MG CAPSULE PO SCH ×2 (09:07→22:34)
[2017-05-30] MEDS: SERTRALINE HCL 50 MG TABLET PO SCH (09:08)
[2017-05-30] MEDS: ENALAPRIL 5 MG TABLET PO SCH (09:08)
[2017-05-30] MEDS: FLUTICASONE PROPIONATE 50MCG NASAL 16 GM BTL SCH (22:32)
[2017-05-30] MEDS: LEVEMIR FLEXTOUCH 100 UNIT/ML INSULIN PEN SQ SCH (22:32)
[2017-05-30] MEDS: MONTELUKAST SODIUM 10MG TABLET PO SCH (22:34)
[2017-05-31] MEDS: NOVOLOG FLEXPEN (INSULIN ASPART) 100 UNITS/ML SQ SCH ×6 (08:21→17:22)
[2017-05-31] MEDS: ATORVASTATIN 20 MG TABLET PO SCH (09:38)
[2017-05-31] MEDS: PREGABALIN 25 MG CAPSULE PO SCH ×2 (09:39→22:22)
[2017-05-31] MEDS: FUROSEMIDE 20 MG TABLET PO SCH (09:39)
[2017-05-31] MEDS: SERTRALINE HCL 50 MG TABLET PO SCH (09:39)
[2017-05-31] MEDS: ACETAMINOPHEN 325 MG TAB PO PRN (09:39)
[2017-05-31] MEDS: ENALAPRIL 5 MG TABLET PO SCH (09:40)
[2017-05-31] MEDS: FLUTICASONE PROPIONATE 50MCG NASAL 16 GM BTL SCH (09:40)
[2017-05-31] MEDS: POTASSIUM CHLORIDE 10 MEQ TAB PO SCH (09:40)
[2017-05-31] MEDS: DOCUSATE SODIUM 100 MG CAPSULE PO SCH ×2 (09:40→22:22)
[2017-05-31] MEDS: OXYBUTYNIN CHLORIDE 5MG TABLET PO SCH ×2 (09:40→22:22)
--- NOTE | 2017-05-31 11:40 | Physical Therapy Tx Note ---
Physical Therapy Tx Note - Treatment Note Tolerated: Good Total Time Spent With Patient: 35 Physical Therapy Tx Note: Detail (Pt was seated in recliner in reclined position upon PT arrival. Pt was shown and educated on new walker. Gait belt was applied to Pt. Pt ambulated 40 feet to rm 22 bathroom with front wheeled walker and standby assist to practice tub transfers. Pt was educated on new technique of transfer however Pt preferred her own way of transfer. Pt demonstrated her own transfer to determine if it was safe. Pt was safe in transfer. Pt ambulated 306 feet with front wheeled walker and contact gaurd assist then was wheeled back to her room in a w/c. Pt stated her arms and low back were tired at end of ambulation. Pt was left in recliner in reclined position with water and call button within reach. Pt expressed need for new breifs in the bathroom. PAINT STOCK CLERK spoke with nursing to have more stocked.) Physical Therapy Problem List: Detail (1. Impaired gait mechanics 2. Impaired balance 3. Inability to complete sustained physical activites as required in a home environment.) Physical Therapy Goals: 1. Pt. will demonstrate independence with bed mobility and supine to sit transfers. Goal met. 2. Pt. will complete the Tinetti or Belle balance outcome assessment to assess fall risk level of patient and overall balance with different tasks. (Goal met). 3. Pt. will independently ambulate 100ft without the use of an AD displaying proper gait and balance mechanics with decreased sway of the trunk. Goal met. 4. Pt. will improve Tinetti balance score to a 21/28 to indicate improved stability with ambulation. Prognosis: Good Physical Therapy Plan: Pt. will be seen Tuesday-Tuesday 1-2x/day. POC will include muscular endurance training, gait training, balance training, and bed mobility/transfers.
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
--- NOTE | 2017-05-31 14:08 | Physical Therapy Tx Note ---
Physical Therapy Tx Note - Treatment Note Tolerated: Good Total Time Spent With Patient: 30 Physical Therapy Tx Note: Detail (The patient ambulated without device 108 feet x 1 with supervision for safety. Shortness of breath was noted with ambulating without device. Diaphramtic breathing techniques were reviewed.The patient's balance was retested using the Tinetti Balance Assessment Tool. The patient scored 22/28 which is in the moderate at risk for falls category ( Initially the patient was 19/28). Discussed at length fall risks at home including : throw rugs, pets, carrying objects etc. The patient was instructed to use the wheeled walker when ambulating outdoors and in the evening and ambulating without device household distances. Home PT is recommended to evaluate the patient's safety at home.) Physical Therapy Problem List: Detail (1. Impaired gait mechanics 2. Impaired balance 3. Inability to complete sustained physical activites as required in a home environment.) Physical Therapy Goals: 1. Pt. will demonstrate independence with bed mobility and supine to sit transfers. Goal met. 2. Pt. will complete the Tinetti or Belle balance outcome assessment to assess fall risk level of patient and overall balance with different tasks. (Goal met). 3. Pt. will independently ambulate 100ft without the use of an AD displaying proper gait and balance mechanics with decreased sway of the trunk. Goal met. 4. Pt. will improve Tinetti balance score to a 21/28 to indicate improved stability with ambulation. Physical Therapy Plan: Pt. will be seen Tuesday-Tuesday 1-2x/day. POC will include muscular endurance training, gait training, balance training, and bed mobility/transfers.
[2017-05-31] MEDS: RIVAROXABAN 20 MG TABLET PO SCH (17:17)
[2017-05-31] MEDS ORDERED: LEVEMIR FLEXTOUCH 100 UNIT/ML INSULIN PEN SQ SCH (22:00)
[2017-05-31] MEDS: MONTELUKAST SODIUM 10MG TABLET PO SCH (22:22)
[2017-06-01] MEDS: ACETAMINOPHEN 325 MG TAB PO PRN (03:23)
[2017-06-01] MEDS: NOVOLOG FLEXPEN (INSULIN ASPART) 100 UNITS/ML SQ SCH ×4 (08:02→13:13)
--- NOTE | 2017-06-01 08:06 | Discharge Summary ---
Providers Discharge Summary Date: 06/01/17 Date of admission: 05/10/17 15:16 Expected Date of Discharge: 06/01/17 Attending physician: Horace Monreal Primary care physician: MARIALUISA NAIK Physical Exam - Vital Signs Vital Signs: Vital Signs - Last 24 Hrs Temp Pulse Resp BP Pulse Ox 05/31/17 21:21 16 92 L 05/31/17 20:00 98 F 65 18 114/53 65 L - General General Appearance: Alert, Oriented x3, Cooperative, No acute distress - Head Head exam: Normal inspection - Eye Eye exam: Normal appearance, PERRL Pupils: Normal accommodation - ENT ENT exam: Normal exam, Mucous membranes moist, Normal external ear exam, Normal orophraynx, TM's normal bilaterally Ear exam: Normal external inspection. negative: External canal tenderness Nasal Exam: Normal inspection. negative: Discharge, Sinus tenderness Mouth exam: Normal external inspection, Tongue normal Teeth exam: Normal inspection. negative: Dental caries Throat exam: Normal inspection. negative: Tonsillar erythema, Tonsillar exudate - Neck Neck exam: Normal inspection, Full ROM. negative: Tenderness - Respiratory Respiratory exam: Normal lung sounds bilaterally. negative: Respiratory distress - Cardiovascular Cardiovascular Exam: Regular rate, Normal rhythm, Normal heart sounds - GI/Abdominal GI/Abdominal exam: Soft, Normal bowel sounds. negative: Tenderness - Rectal Rectal exam: Deferred - exam: Deferred - Extremities Extremities exam: Normal inspection, Full ROM, Normal capillary refill. negative: Tenderness - Back Back exam: Reports: Normal inspection, Full ROM. Denies: Muscle spasm, Rash noted, Tenderness - Neurological Neurological exam: Alert, Normal gait, Oriented X3, Reflexes normal - Psychiatric Psychiatric exam: Normal affect, Normal mood - Skin Skin exam: Dry, Intact, Normal color, Warm Hospitalization - Hospitalization Admission Diagnosis: Deconditioning due to respiratory failure and CO2 narcosis - Problem List (1) Diastolic heart failure Current Visit: Yes Status: Acute Base Code: I50.30 - UNSPECIFIED DIASTOLIC ( CONGESTIVE) HEART FAILURE (2) Carbon dioxide narcosis Current Visit: Yes Status: Acute Base Code: R06.89 - OTHER ABNORMALITIES OF BREATHING (3) Hypoxia Current Visit: Yes Status: Acute Base Code: R09.02 - HYPOXEMIA (4) Goiter Current Visit: Yes Status: Acute Base Code: E04.9 - NONTOXIC GOITER, UNSPECIFIED (5) Encephalopathy acute Current Visit: Yes Status: Acute Base Code: G93.40 - ENCEPHALOPATHY, UNSPECIFIED (6) Morbid obesity Current Visit: Yes Status: Acute Base Code: E66.01 - MORBID (SEVERE) OBESITY DUE TO EXCESS CALORIES Comment: possible pick wickian syndrome (7) LARISA (obstructive sleep apnea) Current Visit: Yes Status: Acute Base Code: G47.33 - OBSTRUCTIVE SLEEP APNEA (ADULT) (PEDIATRIC) Comment: requires bipap (8) Diabetes mellitus Current Visit: Yes Status: Chronic Discharge Diagnosis: Diabetes mellitus type: type 2 Diabetes mellitus complication status: with neurologic complications Diabetes mellitus complication detail: with polyneuropathy Diabetes mellitus terminal operations supervisor insulin use: with correction use Qualified Code(s): E11.42 - Type 2 diabetes mellitus with diabetic polyneuropathy; Z79.4 - roasterman (current) use of insulin; Z79.4 - prison ( current) use of insulin; Z79.4 - roasterman (current) use of insulin; Z79.4 - prison (current) use of insulin Base Code: E11.9 - TYPE 2 DIABETES MELLITUS WITHOUT COMPLICATIONS (9) Diabetes mellitus type 2 in obese Current Visit: Yes Status: Acute Base Code: E11.69 - TYPE 2 DIABETES MELLITUS WITH OTHER SPECIFIED COMPLICATION; E66.9 - OBESITY, UNSPECIFIED (10) Hypertension Current Visit: Yes Status: Acute Base Code: I10 - ESSENTIAL (PRIMARY) HYPERTENSION - Hospitalization Course Disposition: Home, Self-Care Reason For Discharge/Transfer: Medical Stability Hospital Course: Patient gradually improved and is much stronger. Not requiring oxygen but she requires a c pap with sleeping Abnormal Labs: Abnormal Lab Results 05/10/17 05/10/17 05/11/17 Range/Units 18:40 21:28 07:30 MCHC (32-36) g/dl MPV (7.4-10.4) fl Lymphocytes % (16-45) % Potassium (3.4-4.5) mmol/L Carbon Dioxide (22-29) mmol/L Anion Gap (7-16) BUN (8-23) mg/dL Creatinine (0.5-0.9) mg/dL POC Glucose 189 H 254 H 247 H (70-110) mg/dL Random Glucose (74-109) mg/dL Calcium (8.8-10.2) mg/dL Magnesium (1.6-2.4) mg/dL 05/11/17 05/11/17 05/11/17 Range/Units 11:43 11:43 17:00 MCHC 31.5 L (32-36) g/dl MPV 10.9 H (7.4-10.4) fl Lymphocytes % 12.8 L (16-45) % Potassium (3.4-4.5) mmol/L Carbon Dioxide 36.0 H (22-29) mmol/L Anion Gap (7-16) BUN (8-23) mg/dL Creatinine (0.5-0.9) mg/dL POC Glucose 229 H (70-110) mg/dL Random Glucose 235 H (74-109) mg/dL Calcium 11.1 H (8.8-10.2) mg/dL Magnesium 1.5 L (1.6-2.4) mg/dL 05/12/17 05/12/17 05/12/17 Range/Units 07:30 11:30 16:42 MCHC (32-36) g/dl MPV (7.4-10.4) fl Lymphocytes % (16-45) % Potassium (3.4-4.5) mmol/L Carbon Dioxide (22-29) mmol/L Anion Gap (7-16) BUN (8-23) mg/dL Creatinine (0.5-0.9) mg/dL POC Glucose 233 H 309 H 227 H (70-110) mg/dL Random Glucose (74-109) mg/dL Calcium (8.8-10.2) mg/dL Magnesium (1.6-2.4) mg/dL 05/12/17 05/13/17 05/13/17 Range/Units 22:16 07:51 11:45 MCHC (32-36) g/dl MPV (7.4-10.4) fl Lymphocytes % (16-45) % Potassium (3.4-4.5) mmol/L Carbon Dioxide (22-29) mmol/L Anion Gap (7-16) BUN (8-23) mg/dL Creatinine (0.5-0.9) mg/dL POC Glucose 202 H 197 H 311 H (70-110) mg/dL Random Glucose (74-109) mg/dL Calcium (8.8-10.2) mg/dL Magnesium (1.6-2.4) mg/dL 05/13/17 05/13/17 05/14/17 Range/Units 17:00 22:00 06:53 MCHC (32-36) g/dl MPV (7.4-10.4) fl Lymphocytes % (16-45) % Potassium (3.4-4.5) mmol/L Carbon Dioxide (22-29) mmol/L Anion Gap (7-16) BUN (8-23) mg/dL Creatinine (0.5-0.9) mg/dL POC Glucose 301 H 303 H 256 H (70-110) mg/dL Random Glucose (74-109) mg/dL Calcium (8.8-10.2) mg/dL Magnesium (1.6-2.4) mg/dL 05/14/17 05/14/17 05/14/17 Range/Units 11:45 16:50 21:59 MCHC (32-36) g/dl MPV (7.4-10.4) fl Lymphocytes % (16-45) % Potassium (3.4-4.5) mmol/L Carbon Dioxide (22-29) mmol/L Anion Gap (7-16) BUN (8-23) mg/dL Creatinine (0.5-0.9) mg/dL POC Glucose 306 H 277 H 220 H (70-110) mg/dL Random Glucose (74-109) mg/dL Calcium (8.8-10.2) mg/dL Magnesium (1.6-2.4) mg/dL 05/15/17 05/15/17 05/15/17 Range/Units 07:50 11:45 17:00 MCHC (32-36) g/dl MPV (7.4-10.4) fl Lymphocytes % (16-45) % Potassium (3.4-4.5) mmol/L Carbon Dioxide (22-29) mmol/L Anion Gap (7-16) BUN (8-23) mg/dL Creatinine (0.5-0.9) mg/dL POC Glucose 189 H 306 H 232 H (70-110) mg/dL Random Glucose (74-109) mg/dL Calcium (8.8-10.2) mg/dL Magnesium (1.6-2.4) mg/dL 05/16/17 05/16/17 05/16/17 Range/Units 07:45 11:30 17:00 MCHC (32-36) g/dl MPV (7.4-10.4) fl Lymphocytes % (16-45) % Potassium (3.4-4.5) mmol/L Carbon Dioxide (22-29) mmol/L Anion Gap (7-16) BUN (8-23) mg/dL Creatinine (0.5-0.9) mg/dL POC Glucose 218 H 294 H 248 H (70-110) mg/dL Random Glucose (74-109) mg/dL Calcium (8.8-10.2) mg/dL Magnesium (1.6-2.4) mg/dL 05/16/17 05/17/17 05/17/17 Range/Units 22:10 07:45 11:30 MCHC (32-36) g/dl MPV (7.4-10.4) fl Lymphocytes % (16-45) % Potassium (3.4-4.5) mmol/L Carbon Dioxide (22-29) mmol/L Anion Gap (7-16) BUN (8-23) mg/dL Creatinine (0.5-0.9) mg/dL POC Glucose 343 H 259 H 287 H (70-110) mg/dL Random Glucose (74-109) mg/dL Calcium (8.8-10.2) mg/dL Magnesium (1.6-2.4) mg/dL 05/18/17 05/18/17 05/18/17 Range/Units 00:05 07:30 11:30 MCHC (32-36) g/dl MPV (7.4-10.4) fl Lymphocytes % (16-45) % Potassium (3.4-4.5) mmol/L Carbon Dioxide (22-29) mmol/L Anion Gap (7-16) BUN (8-23) mg/dL Creatinine (0.5-0.9) mg/dL POC Glucose 322 H 258 H 227 H (70-110) mg/dL Random Glucose (74-109) mg/dL Calcium (8.8-10.2) mg/dL Magnesium (1.6-2.4) mg/dL 05/18/17 05/19/17 05/19/17 Range/Units 17:00 02:50 06:10 MCHC (32-36) g/dl MPV (7.4-10.4) fl Lymphocytes % (16-45) % Potassium 5.0 H (3.4-4.5) mmol/L Carbon Dioxide 34.0 H (22-29) mmol/L Anion Gap 6.0 L (7-16) BUN 34 H (8-23) mg/dL Creatinine 1.0 H (0.5-0.9) mg/dL POC Glucose 253 H 396 H (70-110) mg/dL Random Glucose 392 H (74-109) mg/dL Calcium 10.4 H (8.8-10.2) mg/dL Magnesium (1.6-2.4) mg/dL 05/19/17 05/19/17 05/19/17 Range/Units 07:36 11:44 17:25 MCHC (32-36) g/dl MPV (7.4-10.4) fl Lymphocytes % (16-45) % Potassium (3.4-4.5) mmol/L Carbon Dioxide (22-29) mmol/L Anion Gap (7-16) BUN (8-23) mg/dL Creatinine (0.5-0.9) mg/dL POC Glucose 386 H 296 H 154 H (70-110) mg/dL Random Glucose (74-109) mg/dL Calcium (8.8-10.2) mg/dL Magnesium (1.6-2.4) mg/dL 05/20/17 05/20/17 05/20/17 Range/Units 07:53 11:35 17:17 MCHC (32-36) g/dl MPV (7.4-10.4) fl Lymphocytes % (16-45) % Potassium (3.4-4.5) mmol/L Carbon Dioxide (22-29) mmol/L Anion Gap (7-16) BUN (8-23) mg/dL Creatinine (0.5-0.9) mg/dL POC Glucose 236 H 351 H 347 H (70-110) mg/dL Random Glucose (74-109) mg/dL Calcium (8.8-10.2) mg/dL Magnesium (1.6-2.4) mg/dL 05/21/17 05/21/17 05/21/17 Range/Units 07:47 12:51 17:17 MCHC (32-36) g/dl MPV (7.4-10.4) fl Lymphocytes % (16-45) % Potassium (3.4-4.5) mmol/L Carbon Dioxide (22-29) mmol/L Anion Gap (7-16) BUN (8-23) mg/dL Creatinine (0.5-0.9) mg/dL POC Glucose 274 H 391 H 378 H (70-110) mg/dL Random Glucose (74-109) mg/dL Calcium (8.8-10.2) mg/dL Magnesium (1.6-2.4) mg/dL 05/22/17 05/22/17 05/22/17 Range/Units 07:57 11:36 17:23 MCHC (32-36) g/dl MPV (7.4-10.4) fl Lymphocytes % (16-45) % Potassium (3.4-4.5) mmol/L Carbon Dioxide (22-29) mmol/L Anion Gap (7-16) BUN (8-23) mg/dL Creatinine (0.5-0.9) mg/dL POC Glucose 292 H 338 H 219 H (70-110) mg/dL Random Glucose (74-109) mg/dL Calcium (8.8-10.2) mg/dL Magnesium (1.6-2.4) mg/dL 05/23/17 05/23/17 05/23/17 Range/Units 07:43 11:23 17:22 MCHC (32-36) g/dl MPV (7.4-10.4) fl Lymphocytes % (16-45) % Potassium (3.4-4.5) mmol/L Carbon Dioxide (22-29) mmol/L Anion Gap (7-16) BUN (8-23) mg/dL Creatinine (0.5-0.9) mg/dL POC Glucose 291 H 298 H 151 H (70-110) mg/dL Random Glucose (74-109) mg/dL Calcium (8.8-10.2) mg/dL Magnesium (1.6-2.4) mg/dL 05/23/17 05/24/17 05/24/17 Range/Units 21:20 07:54 17:15 MCHC (32-36) g/dl MPV (7.4-10.4) fl Lymphocytes % (16-45) % Potassium (3.4-4.5) mmol/L Carbon Dioxide (22-29) mmol/L Anion Gap (7-16) BUN (8-23) mg/dL Creatinine (0.5-0.9) mg/dL POC Glucose 237 H 214 H 255 H (70-110) mg/dL Random Glucose (74-109) mg/dL Calcium (8.8-10.2) mg/dL Magnesium (1.6-2.4) mg/dL 05/25/17 05/25/17 05/26/17 Range/Units 07:30 11:30 06:19 MCHC (32-36) g/dl MPV (7.4-10.4) fl Lymphocytes % (16-45) % Potassium 4.8 H (3.4-4.5) mmol/L Carbon Dioxide 34.0 H (22-29) mmol/L Anion Gap 6.0 L (7-16) BUN 36 H (8-23) mg/dL Creatinine (0.5-0.9) mg/dL POC Glucose 199 H 189 H (70-110) mg/dL Random Glucose 278 H (74-109) mg/dL Calcium 10.5 H (8.8-10.2) mg/dL Magnesium (1.6-2.4) mg/dL 05/26/17 05/26/17 05/26/17 Range/Units 07:45 11:30 17:00 MCHC (32-36) g/dl MPV (7.4-10.4) fl Lymphocytes % (16-45) % Potassium (3.4-4.5) mmol/L Carbon Dioxide (22-29) mmol/L Anion Gap (7-16) BUN (8-23) mg/dL Creatinine (0.5-0.9) mg/dL POC Glucose 229 H 248 H 155 H (70-110) mg/dL Random Glucose (74-109) mg/dL Calcium (8.8-10.2) mg/dL Magnesium (1.6-2.4) mg/dL 05/26/17 05/27/17 05/27/17 Range/Units 21:33 07:45 17:00 MCHC (32-36) g/dl MPV (7.4-10.4) fl Lymphocytes % (16-45) % Potassium (3.4-4.5) mmol/L Carbon Dioxide (22-29) mmol/L Anion Gap (7-16) BUN (8-23) mg/dL Creatinine (0.5-0.9) mg/dL POC Glucose 321 H 255 H 189 H (70-110) mg/dL Random Glucose (74-109) mg/dL Calcium (8.8-10.2) mg/dL Magnesium (1.6-2.4) mg/dL 05/27/17 05/28/17 05/28/17 Range/Units 22:00 06:56 11:47 MCHC (32-36) g/dl MPV (7.4-10.4) fl Lymphocytes % (16-45) % Potassium (3.4-4.5) mmol/L Carbon Dioxide (22-29) mmol/L Anion Gap (7-16) BUN (8-23) mg/dL Creatinine (0.5-0.9) mg/dL POC Glucose 305 H 273 H 348 H (70-110) mg/dL Random Glucose (74-109) mg/dL Calcium (8.8-10.2) mg/dL Magnesium (1.6-2.4) mg/dL 05/28/17 05/28/17 05/29/17 Range/Units 16:54 22:01 08:29 MCHC (32-36) g/dl MPV (7.4-10.4) fl Lymphocytes % (16-45) % Potassium (3.4-4.5) mmol/L Carbon Dioxide (22-29) mmol/L Anion Gap (7-16) BUN (8-23) mg/dL Creatinine (0.5-0.9) mg/dL POC Glucose 390 H 418 H 304 H (70-110) mg/dL Random Glucose (74-109) mg/dL Calcium (8.8-10.2) mg/dL Magnesium (1.6-2.4) mg/dL 05/29/17 05/29/17 05/29/17 Range/Units 12:59 17:21 23:34 MCHC (32-36) g/dl MPV (7.4-10.4) fl Lymphocytes % (16-45) % Potassium (3.4-4.5) mmol/L Carbon Dioxide (22-29) mmol/L Anion Gap (7-16) BUN (8-23) mg/dL Creatinine (0.5-0.9) mg/dL POC Glucose 386 H 189 H 370 H (70-110) mg/dL Random Glucose (74-109) mg/dL Calcium (8.8-10.2) mg/dL Magnesium (1.6-2.4) mg/dL 05/30/17 05/30/17 05/31/17 Range/Units 07:45 22:32 07:02 MCHC (32-36) g/dl MPV (7.4-10.4) fl Lymphocytes % (16-45) % Potassium (3.4-4.5) mmol/L Carbon Dioxide (22-29) mmol/L Anion Gap (7-16) BUN (8-23) mg/dL Creatinine (0.5-0.9) mg/dL POC Glucose 269 H 330 H 293 H (70-110) mg/dL Random Glucose (74-109) mg/dL Calcium (8.8-10.2) mg/dL Magnesium (1.6-2.4) mg/dL 05/31/17 05/31/17 05/31/17 Range/Units 11:54 16:58 22:49 MCHC (32-36) g/dl MPV (7.4-10.4) fl Lymphocytes % (16-45) % Potassium (3.4-4.5) mmol/L Carbon Dioxide (22-29) mmol/L Anion Gap (7-16) BUN (8-23) mg/dL Creatinine (0.5-0.9) mg/dL POC Glucose 250 H 201 H 328 H (70-110) mg/dL Random Glucose (74-109) mg/dL Calcium (8.8-10.2) mg/dL Magnesium (1.6-2.4) mg/dL 06/01/17 Range/Units 06:48 MCHC (32-36) g/dl MPV (7.4-10.4) fl Lymphocytes % (16-45) % Potassium (3.4-4.5) mmol/L Carbon Dioxide (22-29) mmol/L Anion Gap (7-16) BUN (8-23) mg/dL Creatinine (0.5-0.9) mg/dL POC Glucose 292 H (70-110) mg/dL Random Glucose (74-109) mg/dL Calcium (8.8-10.2) mg/dL Magnesium (1.6-2.4) mg/dL Condition at Discharge: (1) Good Discharge Diagnosis: Diabetes mellitus type two. Mediastinal Mass possibly a goiter. hypertension. history of DVT and on xarelto. LARISA on C Pap. COPD. NEUROPATHY OF LEGS AND ON LYRICA. HYPOXIA RESOLVED. RESPIRATORY FAILURE RESOLVED. OBESITY Discharge Medications - Discharge Medications Prescriptions: Furosemide [Lasix] 20 mg PO DAILY #30 tablet Pregabalin [Lyrica] 25 mg PO BID #60 capsule Home Medications: Ambulatory Orders Cholecalciferol (Vitamin D3) [Dialyvite Vitamin D3 Max] 50,000 unit PO WEEKLY # 8 tablet 06/12/14 [Last Taken 1 Day Ago ~04/30/17] Acetaminophen [Arthritis Pain] 650 mg PO Q8HR 09/25/14 [Last Taken 1 Day Ago ~] Ubidecarenone [Coq-10] 100 mg PO DAILY 05/01/17 [Last Taken 1 Day Ago ~04/30/17] Docusate Sodium [Colace] 100 mg PO BID cap 06/01/17 [Last Taken Unknown] Enalapril Maleate [Vasotec] 20 mg PO DAILY tablet 06/01/17 [Last Taken Unknown] Furosemide [Lasix] 20 mg PO DAILY #30 tablet 06/01/17 [Last Taken Unknown] Insulin Glargine,Hum.rec.anlog [Toudilmao Solostar] 35 unit SQ DAILY #1 06/01/17 [ Last Taken 1 Day Ago ~04/30/17] Insulin Glulisine [Apidra] 10 unit SQ WMEALS #0 06/01/17 [Last Taken 1 Day Ago ~ 04/30/17] Montelukast Sodium [Singulair] 10 mg PO QHS tab 06/01/17 [Last Taken Unknown] Pregabalin [Lyrica] 25 mg PO BID #60 capsule 06/01/17 [Last Taken Unknown] Discharge Plan - Discharge Instructions Activity at Discharge: Increase Activity as Tolerated Diet at Discharge: Low Salt Diet Additional Instructions: follow up with Dr. Monreal on Jun 06 1 pm Tuesday Use apidra insulin before meals 10 units for the meal and add one unit for every 20 over 180 Use Toujeo SQ every morning 35 units daily lasix is at a lower dose 20 mg per day lyrica is at a lower dose 25 mg twice a day Use xopenex PRN as before inhaler Quality Measures - Quality Measures Quality Measures: Advance Directives, Documentation of Current Medications in Medical Record, Elder Maltreatment Screen and Follow-Up Plan, Heart Failure, Screening for High Blood Pressure and F/U Documented - Current Medications Quality Measure: Measure #130: Documentation of Current Medications Documentation of Current Medications: <Current Medications Documented/Reviewed> [Q8421] - Blood Pressure Screening Quality Measure: Screening for High Blood Pressure and Follow-Up Documented Does Patient Have Any of the Following: Active Dx of HTN Blood Pressure Classification: Normal BP Reading Systolic Measurement: 102 Diastolic Measurement: 61 Screening for High Blood Pressure: Patient Exclusion, Hx of HTN [B7774] - Heart Failure (JESSE/ARB Therapy) Quality Measure: Heart Failure View Details: Yes Left Ventricular Systolic Function: LV Ejection Fraction less than 40% [3021F] ( the ejection fracture is higher than this and in the normal range see Eccho done during this admission) JESSE Inhibitor or ARB Therapy for LVSD: <JESSE Inhibitor or ARB therapy prescribed or currently taken> [4010F] - Heart Failure (Beta-tony Therapy) Quality Measure: Heart Failure Left Ventricular Systolic Function: LV Ejection Fraction less than 40% [3021F] Beta-Tony Therapy for LVEF < 40%: Not Prescribed [[id number]] (not indicated with her eccho) Reason for NOT Prescribing: Low Blood Pressure, Other Medical Reason - Advance Directives Quality Measure: Measure #47: Care Plan Advance Directives Established: No Advance Directives Information Provided To Patient: No Advance Directives on File: No Living Will: No Power of Scroll Shear Operator: Yes Power of Scroll Shear Operator Name: Amador Fulton Advance Care Planning: <Care Plan/Decision Maker Documented; Discussed & Documented> [3553F] - Elder Abuse Suspicion Index Screening: Elder Abuse Suspicion Index Screening Rely on people for bathing, dressing, shopping, banking, etc: No Prevented from getting food, clothes, medication, etc: No Made to feel shamed or threatened by someone: No Forced to sign papers or use money against will: No Poor eye contact, withdrawn, malnourished, cuts or bruises: No Screening Result: Negative result EASI Reference Information: Efren BANKS, Annabelle C, Keri D, Jewels Lema.Development and validation of a tool to assist physicians identification of elder abuse: The Elder Abuse Suspicion Index (EASI ). Journal of Elder Abuse and Neglect, 2008; 20 (3): 276-300. - Elder Maltreatment Screen Quality Measures: Elder Maltreatment Screen and Follow-Up Plan Elder Maltreatment Screen: <Negative, No Follow-Up Plan Required> [G8734]
[2017-06-01] MEDS: DOCUSATE SODIUM 100 MG CAPSULE PO SCH (10:02)
[2017-06-01] MEDS: POTASSIUM CHLORIDE 10 MEQ TAB PO SCH (10:03)
[2017-06-01] MEDS: OXYBUTYNIN CHLORIDE 5MG TABLET PO SCH (10:03)
[2017-06-01] MEDS: FUROSEMIDE 20 MG TABLET PO SCH (10:04)
[2017-06-01] MEDS: ATORVASTATIN 20 MG TABLET PO SCH (10:04)
[2017-06-01] MEDS: SERTRALINE HCL 50 MG TABLET PO SCH (10:05)
[2017-06-01] MEDS: PREGABALIN 25 MG CAPSULE PO SCH (10:05)
[2017-06-01] MEDS: ENALAPRIL 5 MG TABLET PO SCH (10:05)
[2017-06-01] MEDS: RIVAROXABAN 20 MG TABLET PO SCH (10:05)
[2017-06-01] MEDS: FLUTICASONE PROPIONATE 50MCG NASAL 16 GM BTL SCH (13:15)
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
== END 2017-06-01 14:50 | disposition home or self-care (01) | DRG 948 ==
LOC: MEDSURG 05-10 15:16
PROVIDERS: ADMIT Emergency Medicine; ATTEND Emergency Medicine
DX: R53.1 Weakness (principal); I50.32 Chronic diastolic (congestive) heart failure; Z68.41 Body mass index [BMI] 40.0-44.9, adult; Z79.4 Long term (current) use of insulin; E11.9 Type 2 diabetes mellitus without complications; G47.33 Obstructive sleep apnea (adult) (pediatric); M17.0 Bilateral primary osteoarthritis of knee; E04.9 Nontoxic goiter, unspecified; E78.00 Pure hypercholesterolemia, unspecified; E66.01 Morbid (severe) obesity due to excess calories; Z86.718 Personal history of other venous thrombosis and embolism; I10 Essential (primary) hypertension; J45.909 Unspecified asthma, uncomplicated
CPT/HCPCS: 36416; 80048; 82948; 83735; 84443; 85025; 90686; 94640; 94660; 94760; 94761; 97110; 97116; 97165; 97530; 97535; J7613

== ENCOUNTER 2018-09-14 15:53 | Inpatient (IN) | payer MEDICARE ==
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
[2018-09-14 16:34] LABS: HEMATOCRIT 39.7 % (35.0-47.0); HEMOGLOBIN 13.1 gm/dl (11.6-16.0); LYMPH % 3.4 % (16-45); MEAN CELL VOLUME 91.1 fl (81-97); MEAN PLATELET VOLUME 10.1 fl (7.4-10.4); PLATELET COUNT 192 K/uL (130-400); RED BLOOD COUNT 4.36 M/uL (3.80-5.40); RED CELL DISTRIBUTION WIDTH 13.8 % (11.5-14.5); WHITE BLOOD COUNT W/O DIFF 14.3 K/uL (4.2-12.2)
[2018-09-14 16:36] LABS: URINE APPEARANCE CLEAR; URINE BILIRUBIN NEGATIVE (NEGATIVE); URINE BLOOD TRACE-I (NEGATIVE); URINE COLOR YELLOW; URINE GLUCOSE (UA) NEGATIVE (NEGATIVE); URINE KETONE NEGATIVE (NEGATIVE); URINE LEUKOCYTE ESTERASE TRACE (NEGATIVE); URINE NITRITE NEGATIVE (NEGATIVE); URINE PROTEIN NEGATIVE (NEGATIVE); URINE UROBILINOGEN 0.2 E.U./dL (0.20 - 1.00)
[2018-09-14 16:44] LABS: INR 1.1; PARTIAL THROMBOPLASTIN TIME 26.6 SECONDS (24.5-39.1); PROTHROMBIN TIME (PATIENT) 10.7 SECONDS (9.5-12.1)
[2018-09-14 16:44] LABS: ARTERIAL BLD GAS O2 SATURATION 90.5 % (95-98); ARTERIAL BLOOD GAS BASE EXCESS -1.1 mmol/L (-2 - 3); ARTERIAL BLOOD GAS HCO3 22.6 mmol/L (18-23); ARTERIAL BLOOD GAS pH 7.41 (7.35-7.45); CARBOXYHEMOGLOBIN 1.6 % (0-1.5); O2 HEMOGLOBIN 89.3 % vol (94-99); TOTAL HEMOGLOBIN 12.2 g/dl (11.6-16)
[2018-09-14 16:45] LABS: ALLEN TEST PASS
[2018-09-14 16:48] LABS: METHEMOGLOBIN -0.3 % (0.0-1.5)
[2018-09-14 16:49] LABS: CKMB 1.6 ng/mL (<3.77)
[2018-09-14 16:54] LABS: URINE BACTERIA NONE SEEN; URINE EPITHELIAL CELLS 0 - 2 (FEW); URINE RBC NONE SEEN (NONE SEEN); URINE WBC NONE SEEN (0-2/hpf)
[2018-09-14 16:56] LABS: AMPHETAMINE SCREEN URINE NOT DETECTED; BARBITURATE SCREEN URINE NOT DETECTED; BENZODIAZEPINE SCREEN URINE NOT DETECTED; COCAINE SCREEN URINE NOT DETECTED; METHADONE SCREEN URINE NOT DETECTED; METHAMPHETAMINE SCREEN NOT DETECTED; OPIATE SCREEN URINE NOT DETECTED; OXYCODONE SCREEN URINE NOT DETECTED; PHENCYCLIDINE SCREEN URINE NOT DETECTED; PROPOXYPHENE SCREEN URINE NOT DETECTED; THC SCREEN URINE NOT DETECTED; TRICYCLIC ANTIDEPRESSANT SCRN NOT DETECTED
[2018-09-14 16:59] LABS: THYROID STIMULATING HORMONE 3.58 uIU/mL (0.270-4.20)
[2018-09-14 17:04] LABS: BLOOD UREA NITROGEN 80 mg/dL (8-23); CREATININE 1.7 mg/dL (0.5-0.9); EST GLOMERULAR FILTRATION RATE 31 mL/min
[2018-09-14 17:07] LABS: GLUCOSE,RANDOM 308 mg/dL (74-109)
[2018-09-14 17:09] LABS: ALBUMIN 4.2 g/dL (4.0-5.0); ALKALINE PHOSPHATASE 77 U/L (35-104); ALT/SGPT 15 U/L (<33); AST/SGOT 21 U/L (10.0-35.0)
[2018-09-14 17:10] LABS: C-REACTIVE PROTEIN 1.81 mg/dL (<0.5); CREATINE PHOSPHOKINASE 84 U/L (26-192)
[2018-09-14 17:20] LABS: ALB/GLOB RATIO 1.1 (1.1-1.8)
[2018-09-14] MEDS ORDERED: 0.9 % SODIUM CHLORIDE 1,000 ML BAG IV ONE ×2 (17:22→18:20)
[2018-09-14] MEDS ORDERED: ACETAMINOPHEN 325 MG TAB PO ONE (17:41)
[2018-09-14] MEDS ORDERED: CEFTRIAXONE 1GM/50ML BAG 1 GM/50 ML BAG IVPB ONE (18:31)
[2018-09-14] MEDS ORDERED: ZINC OXIDE 28.35 GM TUBE TOP ONE (19:52)
[2018-09-14] MEDS ORDERED: CEFTRIAXONE 1GM/50ML BAG 1 GM/50 ML BAG IVPB SCH (19:53)
[2018-09-14] MEDS ORDERED: LEVALBUTEROL HCL 1.25 MG/3 ML INH PRN (20:00)
[2018-09-14] MEDS: ACETAMINOPHEN 325 MG TAB PO PRN (21:45)
[2018-09-14] MEDS: MONTELUKAST SODIUM 10MG TABLET PO SCH (21:45)
[2018-09-14] MEDS ORDERED: MONTELUKAST SODIUM 10MG TABLET PO SCH (22:00)
[2018-09-14] MEDS: 0.9 % SODIUM CHLORIDE 1000ML 1,000 ML IV PRN (22:04)
--- NOTE | 2018-09-15 05:05 | RADIOLOGY REPORT ---
EXAM: CHEST HISTORY: CONFUSION, DIFFICULTY BREATHING. TECHNIQUE: Two views of the chest were obtained. Comparison: 06/06/18. FINDINGS: The degree of inspiration is not optimal. The heart and mediastinum are unremarkable. No acute infiltrate. Borderline vascular congestion. Arthritic changes in the thoracic spine. IMPRESSION: 1. BORDERLINE TO MILD VASCULAR CONGESTION. 2. SUBOPTIMAL INSPIRATION. JOB NUMBER: [id number] MTDD
--- NOTE | 2018-09-15 05:08 | CT SCAN REPORT ---
EXAM: HEAD CT HISTORY: CONFUSION, HIGH BLOOD SUGAR. TECHNIQUE: Noncontrast head CT was obtained. Comparison: 05/01/17. FINDINGS: The ventricles and subarachnoid spaces are unremarkable. No mass or mass effect. No intra or extraaxial hemorrhage. No CT evidence for large acute territorial infarct. No fracture or acute osseous abnormality. 3 mm hyperdense focus is again seen in the region of the right foramen of Devin which is somewhat more dense than on the previous study, but otherwise not changed in size possibly representing small incidental calcification. IMPRESSION: NO MASS, HEMORRHAGE OR ACUTE INTRACRANIAL PROCESS IDENTIFIED. JOB NUMBER: [id number] [facility]
[2018-09-15] MEDS: CEFTRIAXONE 1GM/50ML BAG 1 GM/50 ML BAG IVPB SCH ×2 (06:35→18:00)
[2018-09-15 06:44] LABS: HEMATOCRIT 36.8 % (35.0-47.0); HEMOGLOBIN 11.9 gm/dl (11.6-16.0); MEAN CELL VOLUME 92.7 fl (81-97); MEAN CORPUSCULAR HGB CONC 32.3 g/dl (32-36); MEAN PLATELET VOLUME 9.7 fl (7.4-10.4); PLATELET COUNT 136 K/uL (130-400); RED BLOOD COUNT 3.97 M/uL (3.80-5.40)
[2018-09-15] MEDS ORDERED: LEVOTHYROXINE SODIUM 75 MCG TABLET PO SCH (07:00)
[2018-09-15] MEDS ORDERED: NYSTATIN 15 GM POWDER TP ONE (07:19)
[2018-09-15] MEDS ORDERED: NYSTATIN 15 GM POWDER TP PRN (07:21)
[2018-09-15 07:36] LABS: CREATININE 1.5 mg/dL (0.5-0.9)
[2018-09-15] MEDS ORDERED: NOVOLOG FLEXPEN (INSULIN ASPART) 100 UNITS/ML SQ SCH (08:00)
[2018-09-15] MEDS: 0.9 % SODIUM CHLORIDE 1000ML 1,000 ML IV PRN ×2 (09:09→20:53)
[2018-09-15] MEDS ORDERED: LEVEMIR FLEXTOUCH 100 UNIT/ML INSULIN PEN SQ SCH (10:00)
[2018-09-15] MEDS: METFORMIN 500 MG TABLET PO SCH ×2 (10:36→21:03)
[2018-09-15] MEDS: RIVAROXABAN 20 MG TABLET PO SCH (10:37)
[2018-09-15] MEDS: FUROSEMIDE 20 MG TABLET PO SCH (10:37)
[2018-09-15] MEDS: ENALAPRIL 5 MG TABLET PO SCH (10:37)
[2018-09-15] MEDS: SERTRALINE HCL 50 MG TABLET PO SCH (10:37)
[2018-09-15 10:47] LABS: INFLUENZA A NEGATIVE (NEGATIVE); INFLUENZA B NEGATIVE (NEGATIVE)
[2018-09-15] MEDS: TOUJEO INSULIN SC SCH (11:28)
[2018-09-15] MEDS: NOVOLOG FLEXPEN (INSULIN ASPART) 100 UNITS/ML SQ SCH ×2 (12:16→17:43)
[2018-09-15 13:33] LABS: STREP A SCREEN NEGATIVE (NEGATIVE)
[2018-09-15] MEDS: ACETAMINOPHEN 325 MG TAB PO PRN ×2 (14:32→21:05)
[2018-09-15] MEDS: MONTELUKAST SODIUM 10MG TABLET PO SCH (21:04)
[2018-09-15] MEDS: ATORVASTATIN 20 MG TABLET PO SCH (21:04)
[2018-09-16] MEDS: CEFTRIAXONE 1GM/50ML BAG 1 GM/50 ML BAG IVPB SCH ×2 (06:47→18:42)
[2018-09-16] MEDS: LEVOTHYROXINE SODIUM 88 MCG TABLET PO SCH (06:50)
[2018-09-16] MEDS: 0.9 % SODIUM CHLORIDE 1000ML 1,000 ML IV PRN (06:52)
[2018-09-16] MEDS: NOVOLOG FLEXPEN (INSULIN ASPART) 100 UNITS/ML SQ SCH ×3 (08:21→17:49)
--- NOTE | 2018-09-16 08:22 | Inpatient Certification ---
Inpatient Certification Admit to inpatient care: Based on my medical assessment, after consideration of patient's risk factors (age, co-morbidities and patient presenting symptoms and acuity), I expect that this patient will remain in the hospital greater than or equal to two midnights and that the services needed warrant inpatient care because:encephalopathy and fever Patient Risk Factors: [] Estimated length of stay: [3 days] The patient may reasonably be expected to be discharged or transferred to a hospital within 96 hours after admission to [facility]. Services needed: [IV rocephin and further evaluation of fever and encephalopathy ] Post hospital care (if known): [] I certify that my determination is in accordance with my understanding of Medicare requirements for reasonable and necessary inpatient services. 09/16/18 08:21
[2018-09-16 10:15] LABS: CREATININE 1.1 mg/dL (0.5-0.9)
[2018-09-16] MEDS: METFORMIN 500 MG TABLET PO SCH ×2 (10:22→21:49)
[2018-09-16] MEDS: FUROSEMIDE 20 MG TABLET PO SCH (10:23)
[2018-09-16] MEDS: TOUJEO INSULIN SC SCH (10:24)
[2018-09-16] MEDS: ENALAPRIL 5 MG TABLET PO SCH (10:24)
[2018-09-16] MEDS: RIVAROXABAN 20 MG TABLET PO SCH (10:25)
[2018-09-16] MEDS: SERTRALINE HCL 50 MG TABLET PO SCH (10:25)
[2018-09-16] MEDS: ACETAMINOPHEN 325 MG TAB PO PRN ×2 (10:26→14:16)
[2018-09-16] MEDS: MONTELUKAST SODIUM 10MG TABLET PO SCH (21:49)
[2018-09-16] MEDS: ATORVASTATIN 20 MG TABLET PO SCH (21:49)
[2018-09-17] MEDS: ACETAMINOPHEN 325 MG TAB PO PRN (03:19)
[2018-09-17 06:30] LABS: CREATININE 1.1 mg/dL (0.5-0.9)
[2018-09-17] MEDS: CEFTRIAXONE 1GM/50ML BAG 1 GM/50 ML BAG IVPB SCH (06:31)
[2018-09-17] MEDS: LEVOTHYROXINE SODIUM 88 MCG TABLET PO SCH (06:32)
[2018-09-17] MEDS: NOVOLOG FLEXPEN (INSULIN ASPART) 100 UNITS/ML SQ SCH ×2 (08:06→12:10)
[2018-09-17] MEDS: METFORMIN 500 MG TABLET PO SCH (10:12)
[2018-09-17] MEDS: FUROSEMIDE 20 MG TABLET PO SCH (10:13)
[2018-09-17] MEDS: ENALAPRIL 5 MG TABLET PO SCH (10:13)
[2018-09-17] MEDS: RIVAROXABAN 20 MG TABLET PO SCH (10:13)
[2018-09-17] MEDS: SERTRALINE HCL 50 MG TABLET PO SCH (10:13)
[2018-09-17] MEDS: TOUJEO INSULIN SC SCH (10:14)
--- NOTE | 2018-09-17 14:59 | Discharge Note ---
VTE H&P Assessment - Risk for VTE Risk for VTE: Yes Risk Level: Moderate Risk Assessment Date: 09/15/18 Risk Assessment Time: 09:00 VTE Orders Placed or Will Be Placed: Yes Discharge Medications - Discharge Medications Prescriptions: Cephalexin [Keflex] 500 mg PO QID #28 cap Home Medications: Ambulatory Orders Acetaminophen [Arthritis Pain] 650 mg PO Q8HR 09/25/14 [Last Taken 1 Day Ago ~] Ubidecarenone [Coq-10] 100 mg PO DAILY 05/01/17 [Last Taken 1 Day Ago ~04/30/17] Montelukast Sodium [Singulair] 10 mg PO QHS tab 06/01/17 [Last Taken Unknown] Pregabalin [Lyrica] 25 mg PO BID #60 capsule 06/01/17 [Last Taken Unknown] Atorvastatin Calcium 40 mg PO QHS 09/15/18 [Last Taken Unknown] Cetirizine HCl 10 mg PO DAILY 09/15/18 [Last Taken Unknown] Cholecalciferol (Vitamin D3) [Vitamin D3] 2,000 unit PO DAILY 09/15/18 [Last Taken Unknown] Enalapril Maleate 20 mg PO DAILY 09/15/18 [Last Taken Unknown] Insulin Glargine,Hum.rec.anlog [Toujeo Solostar] 56 unit SQ DAILY 09/15/18 [ Last Taken Unknown] Insulin Glulisine [Apidra Solostar] 7 unit SQ WMEALS 09/15/18 [Last Taken Unknown] Levothyroxine Sodium 88 mcg PO DAILYTHY 09/15/18 [Last Taken Unknown] Metformin HCl 1,000 mg PO BID 09/15/18 [Last Taken Unknown] Acetaminophen [Tylenol 325Mg] 650 mg PO Q4H PRN tablet 09/17/18 [Last Taken Unknown] Cephalexin [Keflex] 500 mg PO QID #28 cap 09/17/18 [Last Taken Unknown] Enalapril Maleate [Vasotec] 20 mg PO DAILY tablet 09/17/18 [Last Taken Unknown] Furosemide [Lasix] 20 mg PO DAILY tablet 09/17/18 [Last Taken Unknown] Levalbuterol HCl (1.25MG/3Ml) [Xopenex (1.25MG/3Ml)] 1.25 mg INH QID PRN nebu 09/17/18 [Last Taken Unknown] Levothyroxine Sodium [Synthroid] 88 mcg PO DAILYTHY tablet 09/17/18 [Last Taken Unknown] Metformin HCl [Glucophage Ir] 1,000 mg PO BID tablet 09/17/18 [Last Taken Unknown] Montelukast Sodium [Singulair] 10 mg PO QHS tab 09/17/18 [Last Taken Unknown] Nystatin [Nystop] 15 gm TP TID PRN powder 09/17/18 [Last Taken Unknown] Discharge Note - Date Date of Discharge Note: 09/17/18 Disposition: Home, Self-Care Condition: (2) Stable Instructions: Encephalopathy (DC) Additional Instructions: 2 Activity: TOLERATED, USE WALKER 2 Diet: DIABETIC 2 Consults: [] 2 Follow Up: []WITH DR BINGHAM TUESDAY AT 2:00 PM 2 Dressing/Wound Care: (Type) (Change) 2 Additional: [] Appointment with Dr. Webb Tuesday09/30/18 at 12:15PM follow up with Dr Bingham at 2 pm Referrals: Horace Bingham D.OGeoffrey [Primary Care Provider] - Forms: Patient Portal Access
[2018-09-17 15:41] LABS: URINE APPEARANCE CLEAR; URINE BILIRUBIN NEGATIVE (NEGATIVE); URINE BLOOD NEGATIVE (NEGATIVE); URINE COLOR YELLOW; URINE KETONE NEGATIVE (NEGATIVE); URINE LEUKOCYTE ESTERASE NEGATIVE (NEGATIVE); URINE NITRITE NEGATIVE (NEGATIVE); URINE PROTEIN NEGATIVE (NEGATIVE); URINE UROBILINOGEN 0.2 E.U./dL (0.20 - 1.00)
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
== END 2018-09-17 16:10 | disposition home or self-care (01) | DRG 72 ==
LOC: ER 15:53 → MEDSURG 19:34
PROVIDERS: ADMIT Emergency Medicine; ATTEND Emergency Medicine
DX: G93.40 Encephalopathy, unspecified (principal); R50.9 Fever, unspecified; I10 Essential (primary) hypertension; E11.9 Type 2 diabetes mellitus without complications; E03.9 Hypothyroidism, unspecified; E78.00 Pure hypercholesterolemia, unspecified; J45.909 Unspecified asthma, uncomplicated; G47.33 Obstructive sleep apnea (adult) (pediatric); R32 Unspecified urinary incontinence; R60.9 Edema, unspecified; F31.9 Bipolar disorder, unspecified; Z86.711 Personal history of pulmonary embolism; Z79.01 Long term (current) use of anticoagulants; Z86.718 Personal history of other venous thrombosis and embolism
CPT/HCPCS: 36416; 36600; 70450; 71046; 80048; 80053; 80305; 81001; 81003; 82375; 82550; 82553; 82803; 82948; 83880; 84132; 84145; 84443; 84484; 85027; 85610; 85730; 86140; 87400; 87880; 93005; 93010; 94761; 96365; 99285; J0696; J7030

== ENCOUNTER 2019-02-11 16:17 | Inpatient (IN) | payer MEDICARE ==
--- NOTE | 2019-02-11 16:48 | Emergency Department Record ---
History of Present Illness - General Chief Complaint: Fall Injury Stated Complaint: FALL/ Time Seen by Provider: 02/11/19 16:38 Source: Patient, Family, RN notes reviewed - History of Present Illness Initial Comments: patient fell and may have been on the floor through the night and she is answering questions slowly and her Brother Amador is at the bedside giving us her medical history . Pateint denies neck pain or back pain to palpation and no pain rocking her pelvis but with her mental status decreased will obtain xray. MD Complaint: Fall - Related Data Home Medications Medication Instructions Recorded Confirmed Last Taken Metformin HCl 1,000 mg PO BID 02/11/19 02/11/19 02/11/19 Previous Rx's Medication Instructions Recorded Pregabalin [Lyrica] 25 mg PO BID #60 capsule 06/01/17 Enalapril Maleate [Vasotec] 20 mg PO DAILY tablet 09/17/18 Furosemide [Lasix] 20 mg PO DAILY tablet 09/17/18 Levothyroxine Sodium [Synthroid] 88 mcg PO DAILYTHY tablet 09/17/18 Montelukast Sodium [Singulair] 10 mg PO QHS tab 09/17/18 Nystatin [Nystop] 15 gm TP TID PRN powder 09/17/18 Allergies Allergy/AdvReac Type Severity Reaction Status Date / Time tetracycline [Tetracycline] Allergy Mild RASH Verified 02/11/19 16:36 Review of Systems Reviewed: No additional complaints except as noted below Constitutional: Reports: As per HPI, Other (ry mucous membranes). Denies: Chills, Fever, Malaise, Night sweats, Weakness, Weight change Eyes: Reports: As per HPI. Denies: Eye discharge, Eye pain, Photophobia, Vision change ENT: Reports: As per HPI. Denies: Congestion, Dental pain, Ear pain, Epistaxis, Hearing loss, Throat pain Respiratory: Reports: As per HPI. Denies: Cough, Dyspnea, Hemoptysis, Stridor, Wheezes Cardiovascular: Reports: As per HPI. Denies: Arrhythmia, Chest pain, Dyspnea on exertion, Edema, Murmurs, Orthopnea, Palpitations, Paroxysmal nocturnal dyspnea, Rheumatic Fever, Syncope Endocrine: Reports: As per HPI. Denies: Fatigue, Heat or cold intolerance, Polydipsia, Polyuria Gastrointestinal: Reports: As per HPI. Denies: Abdominal pain, Constipation, Diarrhea, Hematemesis, Hematochezia, Melena, Nausea, Vomiting Genitourinary: Reports: As per HPI. Denies: Abnormal menses, Discharge, Dyspareunia, Dysuria, Frequency, Hematuria, Incontinence, Retention, Urgency Musculoskeletal: Reports: As per HPI. Denies: Arthralgia, Back pain, Gout, Joint swelling, Myalgia, Neck pain Skin: Reports: As per HPI. Denies: Bruising, Change in color, Change in hair/nails, Lesions, Pruritus, Rash Neurological: Reports: As per HPI. Denies: Abnormal gait, Confusion, Headache, Numbness, Paresthesias, Seizure, Tingling, Tremors, Vertigo, Weakness Psychiatric: Reports: As per HPI. Denies: Anxiety, Auditory hallucinations, Depression, Homicidal thoughts, Suicidal thoughts, Visual hallucinations Hematological/Lymphatic: Reports: As per HPI. Denies: Anemia, Blood Clots, Easy bleeding, Easy bruising, Swollen glands Past Medical History - SOCIAL HISTORY Smoking Status: Never smoker Drug Use: None - RESPIRATORY Hx Respiratory Disorders: Yes Hx Asthma: Yes Hx Pulmonary Embolism: Yes Hx Sleep Apnea: Yes Comment:: allergies - CARDIOVASCULAR Hx Cardio Disorders: Yes Hx Deep Vein Thrombosis: Yes (last 2013?) Hx Edema: Yes (BLE) Hx Hypertension: Yes Hx Vascular Disease: (n/a) Comment:: High cholestrol - NEURO Hx Neuro Disorders: No - GI Hx GI Disorders: No - Hx Genitourinary Disorders: Yes Hx Bladder Problem: Yes (incont.) - ENDOCRINE Hx Endocrine Disorders: Yes Hx Diabetes: Yes - MUSCULOSKELETAL Hx Musculoskeletal Disorders: Yes Hx Arthritis: Yes (knees) - PSYCH Hx Psych Problems: Yes Comment:: Bipolar - HEMATOLOGY/ONCOLOGY Hx Hematology/Oncology Disorders: Yes Hx Clotting Problems: Yes (DVT) Hx Blood Transfusions: Yes (w/ hysterectomy) Family Medical History Hx Cancer: Mother *Cancer Comment: multiple myeloma Hx Seizures: Brother/Sister Physical Exam - General General Appearance: Oriented x3, Cooperative, Mild distress, Other (slow speaking) - Head Head exam: Normal inspection - Eye Eye exam: Normal appearance, PERRL Pupils: Normal accommodation - ENT ENT exam: Normal exam, Mucous membranes moist, Normal external ear exam, Normal orophraynx, TM's normal bilaterally Ear exam: Normal external inspection. negative: External canal tenderness Nasal Exam: Normal inspection. negative: Discharge, Sinus tenderness Mouth exam: Normal external inspection, Tongue normal Teeth exam: Normal inspection. negative: Dental caries Throat exam: Normal inspection. negative: Tonsillar erythema, Tonsillar exudate - Neck Neck exam: Normal inspection, Full ROM. negative: Tenderness - Respiratory Respiratory exam: Normal lung sounds bilaterally. negative: Respiratory distress - Cardiovascular Cardiovascular Exam: Regular rate, Normal rhythm, Normal heart sounds - GI/Abdominal GI/Abdominal exam: Soft, Normal bowel sounds. negative: Tenderness - Rectal Rectal exam: Deferred - exam: Deferred - Extremities Extremities exam: Normal inspection, Full ROM, Normal capillary refill, Tenderness (right knee left shoulder and she denies neck pain ) - Back Back exam: Reports: Normal inspection, Full ROM. Denies: Muscle spasm, Rash noted, Tenderness - Neurological Neurological exam: Alert, Normal gait, Oriented X3, Reflexes normal - Psychiatric Psychiatric exam: Normal affect, Normal mood - Skin Skin exam: Other (both lower legs have skin tears) Course - Reevaluation(s) Reevaluation #1: discussed with Lennie and patient 02/11/19 19:02 Medical Decision Making - Data Complexity MDM Data: Labs Ordered and/or Reviewed (bun 3.9 creat 86, 5.7), X-Ray Ordered and/or Reviewed (CT head neg for acute pathology, CT of neck is negative, pelvis is negative ,Shoulder neg chest negative and knee neg) - Lab Data Result diagrams: 02/11/19 16:45 02/11/19 16:45 Disposition Clinical Impression: Dehydration, Acute prerenal azotemia, LARISA (obstructive sleep apnea), Encephal opathy acute Diabetes mellitus Qualifiers: Diabetes mellitus type: type 2 Diabetes mellitus [facility] insulin use: with extermination supervisor use Diabetes mellitus complication status: without complication Qualified Code(s): E11.9 - Type 2 diabetes mellitus without complications Rhabdomyolysis Qualifiers: Rhabdomyolysis type: traumatic Encounter type: initial encounter Qualified Code(s): T79.6XXA - Traumatic ischemia of muscle, initial encounter Decision to Admit: Admit from ER Condition: (3) Guarded Forms: Patient Portal Access Time of Disposition: 18:54 Quality - Quality Measures Quality Measures: N/A - Blood Pressure Screening Does Patient Have Any of the Following: No, Active Dx of HTN Blood Pressure Classification: Pre-Hypertensive BP Reading Systolic Measurement: 130 Diastolic Measurement: 52 Screening for High Blood Pressure: Patient Exclusion, Hx of HTN [C8116]
[2019-02-11 17:09] LABS: HEMATOCRIT 40.5 % (35.0-47.0); HEMOGLOBIN 13.4 gm/dl (11.6-16.0); MEAN CORPUSCULAR HEMOGLOBIN 29.8 pg (27-33); MEAN CORPUSCULAR HGB CONC 33.1 g/dl (32-36); MEAN PLATELET VOLUME 10.4 fl (7.4-10.4); PLATELET COUNT 152 K/uL (130-400); RED CELL DISTRIBUTION WIDTH 14.3 % (11.5-14.5); WHITE BLOOD COUNT W/O DIFF 10.6 K/uL (4.2-12.2)
[2019-02-11 17:21] LABS: INR 1.1; PARTIAL THROMBOPLASTIN TIME 24.3 SECONDS (24.5-39.1); PLATELET ESTIMATE NORMAL (NORMAL); PROTHROMBIN TIME (PATIENT) 10.9 SECONDS (9.5-12.1)
[2019-02-11 17:23] LABS: BLOOD UREA NITROGEN 86 mg/dL (8-23); CREATININE 3.9 mg/dL (0.5-0.9); EST GLOMERULAR FILTRATION RATE 12 mL/min
[2019-02-11 17:24] LABS: TOTAL PROTEIN 7.1 g/dL (6.6-8.7)
[2019-02-11 17:26] LABS: GLUCOSE,RANDOM 244 mg/dL (74-109)
[2019-02-11 17:28] LABS: ALKALINE PHOSPHATASE 64 U/L (35-104); AST/SGOT 195 U/L (10.0-35.0)
[2019-02-11 17:29] LABS: ACETAMINOPHEN < 5.0 ug/mL (10.0-30.0); ALT/SGPT 62 U/L (<33)
[2019-02-11 17:30] LABS: ALBUMIN 3.6 g/dL (4.0-5.0)
[2019-02-11 17:32] LABS: AMMONIA 15 umol/L (11.0-51.0)
[2019-02-11] MEDS ORDERED: ALBUTEROL HFA 8 GM INHALER INH PRN (19:39)
[2019-02-11] MEDS ORDERED: 0.9 % SODIUM CHLORIDE 1000ML 1,000 ML IV PRN (19:39)
[2019-02-11] MEDS ORDERED: NYSTATIN 15 GM POWDER TP PRN (19:39)
[2019-02-11] MEDS ORDERED: ZINC OXIDE 28.35 GM TUBE TOP ONE (19:43)
[2019-02-11] MEDS ORDERED: ZINC OXIDE 28.35 GM TUBE TOP PRN (20:42)
[2019-02-11] MEDS: ACETAMINOPHEN 325 MG TAB PO PRN (20:53)
[2019-02-11 21:45] LABS: URINE APPEARANCE CLEAR; URINE BILIRUBIN SMALL (NEGATIVE); URINE BLOOD LARGE (NEGATIVE); URINE COLOR YELLOW; URINE GLUCOSE (UA) NEGATIVE (NEGATIVE); URINE KETONE TRACE (NEGATIVE); URINE LEUKOCYTE ESTERASE NEGATIVE (NEGATIVE); URINE NITRITE NEGATIVE (NEGATIVE); URINE UROBILINOGEN 0.2 E.U./dL (0.20 - 1.00)
[2019-02-11 21:52] LABS: URINE BACTERIA FEW; URINE TRANSITIONAL EPI CELLS 0 - 2 /hpf; URINE WBC 0 - 2 (0-2/hpf)
[2019-02-11] MEDS: [UNRECOGNIZED DRUG - OTHER] SC SCH (22:30)
[2019-02-11] MEDS: OXYBUTYNIN CHLORIDE 5MG TABLET PO SCH (22:34)
[2019-02-11] MEDS: ATORVASTATIN 20 MG TABLET PO SCH (22:34)
[2019-02-11] MEDS: MONTELUKAST SODIUM 10MG TABLET PO SCH (22:34)
[2019-02-11] MEDS: PREGABALIN 25 MG CAPSULE PO SCH (22:34)
[2019-02-11] MEDS: 0.9 % SODIUM CHLORIDE 1000ML 1,000 ML IV PRN (22:36)
[2019-02-12] MEDS: ACETAMINOPHEN 325 MG TAB PO PRN ×2 (02:59→20:35)
[2019-02-12] MEDS: 0.9 % SODIUM CHLORIDE 1000ML 1,000 ML IV PRN ×2 (03:00→22:35)
[2019-02-12] MEDS: LEVOTHYROXINE SODIUM 88 MCG TABLET PO SCH (06:41)
[2019-02-12 06:54] LABS: ABSOLUTE NEUTROPHIL COUNT 5.86; HEMATOCRIT 35.6 % (35.0-47.0); HEMOGLOBIN 11.6 gm/dl (11.6-16.0); MEAN CELL VOLUME 91.5 fl (81-97); MEAN CORPUSCULAR HEMOGLOBIN 29.8 pg (27-33); MEAN CORPUSCULAR HGB CONC 32.6 g/dl (32-36); MEAN PLATELET VOLUME 10.1 fl (7.4-10.4); PLATELET COUNT 148 K/uL (130-400); RED BLOOD COUNT 3.89 M/uL (3.80-5.40); RED CELL DISTRIBUTION WIDTH 14.2 % (11.5-14.5); WHITE BLOOD COUNT W/O DIFF 7.1 K/uL (4.2-12.2)
[2019-02-12 07:08] LABS: PLATELET ESTIMATE NORMAL (NORMAL)
[2019-02-12 07:13] LABS: CREATININE 3.3 mg/dL (0.5-0.9)
--- NOTE | 2019-02-12 07:15 | CT SCAN REPORT ---
EXAM: CT SCAN OF THE BRAIN WITHOUT CONTRAST HISTORY: UNOBSERVED FALL. TECHNIQUE: Standard CT imaging of the brain was performed in the axial plane without contrast. Additional coronal and sagittal reformatted images were also performed. Comparison: 09/14/18. Encounter: Initial. FINDINGS: The ventricles and subarachnoid spaces are normal. There is no mass, mass effect, intracranial hemorrhage, visible acute infarct, or abnormal extraaxial fluid. Scalp swelling is present within the right temporal parietal region. The orbits, sinuses, and mastoids are normal. IMPRESSION: 1. NO ACUTE INTRACRANIAL ABNORMALITY OR SKULL FRACTURE. 2. RIGHT TEMPORAL PARIETAL SCALP SWELLING. [facility]: [id number] [facility]
--- NOTE | 2019-02-12 07:22 | CT SCAN REPORT ---
EXAM: CT SCAN OF THE CERVICAL SPINE WITHOUT CONTRAST HISTORY: UNOBSERVED FALL. TECHNIQUE: Standard CT imaging of the cervical spine was performed in the axial plane without contrast. Comparison: None. Encounter: Initial. FINDINGS: The patient positioning is suboptimal. There is normal cervical lordosis. The craniocervical and cervicothoracic junctions are normal. There is no acute fracture, subluxation, or prevertebral soft tissue swelling. Moderate to severe disk space narrowing is noted from the C3 through the C7 levels with associated end plate degenerative change. There is no gross central canal stenosis or severe neural foraminal narrowing. The neck soft tissues appear normal. There is a persistent mass within the superior mediastinum posterior to the esophagus. This is believed to represent inferior extension of thyroid parenchyma as noted on a previous chest CT study from 2017. This appears similar to the previous examination, but is only partially included on this study. The remainder of the thyroid appears surgically absent. There is mild atelectasis or scarring at the right apex. IMPRESSION: 1. NO ACUTE CERVICAL SPINE PATHOLOGY. 2. MULTILEVEL DEGENERATIVE DISK DISEASE. 3. PROBABLE RESIDUAL THYROID TISSUE WITHIN THE SUPERIOR MEDIASTINUM WHICH APPEARS SIMILAR TO THE PATIENT'S PREVIOUS CHEST CT STUDY. J[facility]BER: [id number] [facility]
--- NOTE | 2019-02-12 07:25 | RADIOLOGY REPORT ---
EXAM: AP PELVIS HISTORY: UNOBSERVED FALL. TECHNIQUE: Two AP supine views of the pelvis were obtained. Comparison: 04/06/16. FINDINGS: There are old healed fractures of the superior and inferior pubic rami bilaterally. There is no visible acute fracture or dislocation. Moderate arthritic changes are present within the lower lumbar spine and sacroiliac joints. There are mild arthritic changes within the hips. IMPRESSION: 1. NO ACUTE PATHOLOGY. 2. CHRONIC FINDINGS ABOVE. [facility]BER: [id number] [facility]
--- NOTE | 2019-02-12 07:27 | RADIOLOGY REPORT ---
EXAM: LEFT SHOULDER HISTORY: UNOBSERVED FALL. LEFT SHOULDER PAIN. TECHNIQUE: Three views of the left shoulder were obtained. Comparison: Previous chest x-ray dated 09/14/18. FINDINGS: The bones are osteopenic, but appear intact. There is no visible acute fracture, dislocation, or destructive process. There are mild arthritic changes of the acromioclavicular joint. IMPRESSION: 1. OSTEOPENIA AND MILD ARTHRITIC CHANGES. 2. NO ACUTE LEFT SHOULDER PATHOLOGY. [facility]: [id number] [facility]
--- NOTE | 2019-02-12 07:32 | RADIOLOGY REPORT ---
EXAM: RIGHT KNEE HISTORY: UNOBSERVED FALL. RIGHT KNEE PAIN. TECHNIQUE: Four views of the right knee were obtained. Comparison: 04/21/14. FINDINGS: Advanced tricompartmental arthritic changes. These are greatest within the patellofemoral compartment. There are large marginal osteophytes within the patellofemoral compartment. These are greatest along the superior aspect of the patella. Moderate sized marginal osteophytes are present throughout the remainder of the knee. There is chronic deformity of the proximal shaft of the fibula. The bones are diffusely osteopenic. There is no visible acute fracture, dislocation, or joint effusion. IMPRESSION: 1. DIFFUSE OSTEOPENIA AND ADVANCED TRICOMPARTMENTAL ARTHRITIC CHANGES. 2. CHRONIC DEFORMITY OF THE PROXIMAL SHAFT OF THE FIBULA. 3. NO ACUTE RIGHT KNEE PATHOLOGY. [facility]: [id number] [facility]
--- NOTE | 2019-02-12 07:40 | RADIOLOGY REPORT ---
EXAM: LUMBAR SPINE HISTORY: UNOBSERVED FALL. BACK PAIN. TECHNIQUE: The patient could not tolerate lateral lumbar imaging. AP and shallow oblique views of the lumbar spine were obtained. FINDINGS: There is mild levoconvex curvature within the thoracolumbar spine. There are five lumbar vertebral segments. The vertebral body heights appear maintained. Disk space narrowing and end plate degenerative changes are present throughout. Moderate arthritic changes are noted at the sacroiliac joints bilaterally. There are old healed pubic rami fractures bilaterally. IMPRESSION: 1. LIMITED EXAM WITH NO ACUTE LUMBAR SPINE PATHOLOGY IDENTIFIED. 2. MULTILEVEL DEGENERATIVE DISK DISEASE AND FACET ARTHROPATHY. 3. MILD LEVOCONVEX SCOLIOSIS. JOB NUMBER: [id number] [facility]
--- NOTE | 2019-02-12 07:43 | RADIOLOGY REPORT ---
EXAM: CHEST, TWO VIEWS HISTORY: FALL. FOUND ON THE FLOOR. UNABLE TO GET UP. TECHNIQUE: AP and lateral views of the chest were obtained. Comparison: 09/14/18. FINDINGS: There are low lung volumes. The heart, mediastinum, and pulmonary vasculature are normal. There are no visible acute infiltrates or effusions. There is no pneumothorax. The bones appear intact. Degenerative changes are present within the spine. IMPRESSION: NO ACUTE CHEST PATHOLOGY IDENTIFIED. J[facility]BER: [id number] [facility]
[2019-02-12] MEDS ORDERED: NOVOLOG FLEXPEN (INSULIN ASPART) 100 UNITS/ML SQ SCH ×2 (07:45)
[2019-02-12] MEDS ORDERED: PATIENT OWN MED: MC SCH (07:45)
[2019-02-12] MEDS: [UNRECOGNIZED DRUG - OTHER] SC SCH ×6 (08:25→17:53)
[2019-02-12] MEDS ORDERED: LEVEMIR FLEXTOUCH 100 UNIT/ML INSULIN PEN SQ SCH (10:00)
[2019-02-12] MEDS ORDERED: TOLTERODINE TARTRATE 4 MG PO SCH (10:00)
[2019-02-12] MEDS ORDERED: RIVAROXABAN 20 MG TABLET PO SCH (10:00)
[2019-02-12] MEDS ORDERED: ENALAPRIL 5 MG TABLET PO SCH (10:00)
[2019-02-12] MEDS: FLUCONAZOLE 100 MG TABLET PO SCH (10:21)
[2019-02-12] MEDS: OXYBUTYNIN CHLORIDE 5MG TABLET PO SCH ×2 (10:21→22:23)
[2019-02-12] MEDS: PREGABALIN 25 MG CAPSULE PO SCH ×2 (10:21→22:23)
[2019-02-12] MEDS: SERTRALINE HCL 50 MG TABLET PO SCH (10:21)
[2019-02-12] MEDS: TOUJEO SC SCH (10:22)
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
[2019-02-12] MEDS ORDERED: CALCIUM CARBONATE 500 MG TAB.CHEW PO PRN (17:31)
[2019-02-12] MEDS ORDERED: APIDRA MC SCH (21:30)
[2019-02-12] MEDS: ATORVASTATIN 20 MG TABLET PO SCH (22:23)
[2019-02-12] MEDS: MONTELUKAST SODIUM 10MG TABLET PO SCH (22:23)
[2019-02-13 06:27] LABS: ABSOLUTE NEUTROPHIL COUNT 2.74; EOS % 0.2 % (0-6); GRAN % 63.7 % (47-80); HEMATOCRIT 33.9 % (35.0-47.0); HEMOGLOBIN 10.7 gm/dl (11.6-16.0); LYMPH % 21.2 % (16-45); MEAN CELL VOLUME 93.4 fl (81-97); MEAN CORPUSCULAR HGB CONC 31.6 g/dl (32-36); MEAN PLATELET VOLUME 10.3 fl (7.4-10.4); MONO % 14.9 % (0-9); PLATELET COUNT 132 K/uL (130-400); RED BLOOD COUNT 3.63 M/uL (3.80-5.40); RED CELL DISTRIBUTION WIDTH 14.5 % (11.5-14.5); WHITE BLOOD COUNT W/O DIFF 4.3 K/uL (4.2-12.2)
[2019-02-13 06:29] LABS: MEAN CORPUSCULAR HEMOGLOBIN 29.4 pg (27-33)
[2019-02-13] MEDS: LEVOTHYROXINE SODIUM 88 MCG TABLET PO SCH (06:38)
[2019-02-13] MEDS: 0.9 % SODIUM CHLORIDE 1000ML 1,000 ML IV PRN (06:38)
[2019-02-13] MEDS: ACETAMINOPHEN 325 MG TAB PO PRN ×2 (06:41→21:03)
[2019-02-13 06:46] LABS: CREATININE 2.3 mg/dL (0.5-0.9)
[2019-02-13] MEDS ORDERED: 0.9 % SODIUM CHLORIDE 1000ML 1,000 ML IV ONE ×2 (08:12→08:13)
[2019-02-13] MEDS ORDERED: LEVALBUTEROL HCL 1.25 MG/3 ML INH PRN (08:17)
--- NOTE | 2019-02-13 08:30 | History and Physical Report ---
DATE OF ADMISSION: 02/12/2019 CHIEF COMPLAINT/HISTORY OF CHIEF COMPLAINT: The patient fell on the floor, was on the floor for an unknown period of time, maybe up to 24 hours. Her brother, Amador, found her at the bedside and also is giving a lot of her medical history. She was confused, slow speaking, more lethargic than typical, not answering questions appropriately. She denied any head or neck pain. She denied any pain on rocking her pelvis, but with her mental status decreased and on Xarelto, we will obtain a CT of head and neck, chest x-ray, pelvic x-ray, left shoulder, and a right knee x-ray. She did complain of her left shoulder and her right knee hurting. In the emergency department, she was evaluated and admitted to the hospital with a diagnosis of acute encephalopathy, obstructive sleep apnea, dehydration, acute prerenal azotemia, diabetes mellitus type 2, rhabdomyolysis with a CK of more than 7000. She also has skin tears on both shins and bruising on both shins. She has chronic changes of peripheral vascular disease of her lower legs, hyperpigmentation, and leathery skin. MEDICAL HISTORY: Diabetes mellitus type 2 on insulin, primary hyperthyroidism, which is being followed by endocrinology. She had a suprasternal thyroid goiter surgically removed, which showed cancer; primary thyroid papillary carcinoma. COPD, chronic kidney disease, history of DVTs of the lower extremity, neuropathy of both legs, obstructive sleep apnea on BiPAP at home or CPAP, I am not 100% sure which one it is, osteopenia of multiple sites. SURGICAL HISTORY: She had a subtotal parathyroidectomy and a total thyroidectomy done at [facility]. Hysterectomy, T&A, left eye surgery, bilateral cataract removal. CURRENT MEDICATIONS: 1. Insulin Apidra 7 units before meals. She covers to scale, 1 unit for every 20 over 160. 2. TUMS 1000 mg in the morning. 3. Detrol LA 4 mg daily. 4. Enalapril 20 mg daily. 5. Lasix 2 days a week for 20 mg Mondays and . 6. Levothyroxine 88 mcg a day. 7. Lyrica 25 mg b.i.d. 8. Magnesium 400 mg daily. 9. Singulair 10 mg daily. 10. Nasonex 2 sprays each nostril each day as needed. 11. Sertraline 50 mg a day. 12. Toujeo insulin 66 units a day in the morning. 13. Xarelto 20 mg daily. 14. Xopenex inhaler 2 puffs 4 times a day. 15. Zyrtec 10 mg daily. 16. Glucophage 1000 mg b.i.d. 17. Vitamin D3 2000 units daily. 18. CoQ 10 100 mg daily. 19. Tylenol 650 2 tablets every 8 hours. ALLERGIES: TETRACYCLINE. SOCIAL HISTORY: She never smoked. No alcohol or drug use. FAMILY PSYCHOSOCIAL HISTORY: Cancer in her mother, multiple myeloma. Brother and sister have seizures. SYSTEMS REVIEW: HEENT: No upper respiratory infectious symptoms, cough, cold, or congestion. CARDIOVASCULAR: No chest pain, palpitations, or arrhythmias. RESPIRATORY: No cough, cold, or congestion. GASTROINTESTINAL: No nausea, vomiting, diarrhea, black stools, or bloody stools. GENITOURINARY: No dysuria, hematuria, or frequency or burning on urination. She is incontinent of urine. MUSCULOSKELETAL: She is moving all 4 extremities, but she has had skin tears on both lower legs and bruising. She has had terrible peripheral vascular disease with hyperpigmentation and leathery skin from the knees down. NEUROLOGIC: Slow talking. See chief complaint. Slightly confused with responses. Denies any headache or neck pain or head pain. GENITAL/GYNECOLOGICAL: She has yeast under her breasts and in the folds of her groin. No lumps in breasts or abnormal vaginal bleeding. ENDOCRINE: She has diabetes. She has had thyroid cancer and hypothyroidism because of a total thyroidectomy. INTEGUMENT: The skin is all abraded and she has yeast under the breasts and in the folds of her skin in the groin. PHYSICAL EXAMINATION: GENERAL: Height is 5 feet 2 inches, weight is 267 pounds by bed scale. VITAL SIGNS: Blood pressure 103/47, her blood pressure is running low, when she initially came in while in the ER it was okay and throughout the night it was down to 75/40. Currently, the blood pressure is 103/47, pulse 77, pulse oximetry is 95% on room air. Respiratory rate is 16, temperature is 97.7. HEENT: Pupils are equal, round, and reactive to light and accomodation. Extraocular muscles are intact. Throat is clear. Nose is clear. Tympanic membranes are jain. She had very dry mucus membranes when she came into the hospital emergency department. NECK: Supple, no JVD distention, no hepatojugular reflux, no carotid bruits. Thyroid is smooth. CARDIOVASCULAR: Regular rate and rhythm without murmur, clicks, rubs, or gallops. RESPIRATORY: Breath sounds are equal bilaterally. ABDOMEN: Distended and obese, but no pain on palpation. EXTREMITIES: There is tearing of both shins of her knees. She has bruising in the lower legs. She has got hyperpigmentation of the skin and leathery skin from peripheral vascular disease. BREASTS: She has yeast under the folds of her breasts and in the groin. RECTAL: Exam deferred. GENITALIA: Deferred. NEUROLOGIC: Cranial nerves II through XII intact, no gross defects. Sensation normal, normal strength, normal deep tendon reflexes bilaterally. Babinski negative. She is lethargic, oriented to name, place. Not time. She is speaking slowly and confused at times. IMPRESSION: 1. Acute encephalopathy. 2. Falls, unable to get off the ground for more than 24 hours. 3. Dehydration. 4. Prerenal azotemia. 5. Renal failure. 6. Diabetes mellitus type 2. 7. COPD. 8. Neuropathy. 9. Obstructive sleep apnea, on BiPAP. 10. Yeast under the breasts and in the groin. 11. History of thyroid cancer. PLAN: IV hydration, follow labs, follow her encephalopathy. X-rays in the emergency department were unremarkable. MTDD
[2019-02-13] MEDS: [UNRECOGNIZED DRUG - OTHER] SC SCH ×6 (08:39→17:34)
[2019-02-13] MEDS: LIDOCAINE 5% PATCH TOP SCH ×2 (08:41→09:36)
--- NOTE | 2019-02-13 09:06 | Occupational Therapy Tx Note ---
Occupational Therapy Tx Note - Treatment Note Tolerated: Good Total Time Spent With Patient: 50 (ADL) Occupational Therapy Treatment Note: Detail (S: Pt up in recliner. Feeling sore today especially ribs and neck. O: Sit to stand from recliner with SBA. Pt amb 15 feet to shower with 2 wheeled walker and SBA. Pt doffed gown with min assist to untie, briefs Indly over hips and with assist to gum puller feet and max assist to doff slipper socks. Pt completed showering in sitting and standing with use of grab bar for standing. She was Ind with washing hair, chest, arms, upper legs and maribeth area but required assist for lower legs, back and buttocks. She required assist to wash hair thoroughly. Pt dried self with assist for back, feet, lower legs and buttocks. Donned gown with min assist. Sit to stand from shower seat with use of grab bars and amb to chair with 2 wheeled walker. Pt donned briefs with max assist to start over feet and mod assist to gum puller hips. Slipper socks donned per OT. Pt able to partially brush hair Indly but required assist due to tangles. Pt left up in chair with breakfast and call button in reach. A: Pt requires assist with self cares, she demonstrates shortness of breath with activity, improved mobility noted today) Occupational Therapy Problem List: Detail (1. Need to further assess self care tasks.) Occupational Therapy Goals: 1. Pt will be Ind with grooming/hygiene. 2. Pt will be Ind with showering in sitting. 3. Pt will be Ind with total body dressing. Prognosis: Good Occupational Therapy Plan: OT 2-4 times per week to address goals as stated above.
[2019-02-13] MEDS: FLUCONAZOLE 100 MG TABLET PO SCH (09:35)
[2019-02-13] MEDS: OXYBUTYNIN CHLORIDE 5MG TABLET PO SCH ×2 (09:35→21:03)
[2019-02-13] MEDS: PREGABALIN 25 MG CAPSULE PO SCH ×2 (09:35→21:03)
[2019-02-13] MEDS: SERTRALINE HCL 50 MG TABLET PO SCH (09:35)
[2019-02-13] MEDS: TOUJEO SC SCH (09:36)
[2019-02-13] MEDS ORDERED: CALCIUM CARBONATE 500 MG TAB.CHEW PO SCH (10:00)
[2019-02-13] MEDS ORDERED: LEVALBUTEROL HCL 1.25 MG/3 ML INH SCH (10:00)
--- NOTE | 2019-02-13 13:43 | Physical Therapy Tx Note ---
Physical Therapy Tx Note - Treatment Note Tolerated: Fair Total Time Spent With Patient: 20 Physical Therapy Tx Note: Detail (The patient was up in chair when PT arrived. The patient required minimal PA of 1 with sit to stand from recliner. The patient ambulated with front wheeled walker a distance of 34 feet x 1 with CG of 1 for safety. The patient was able to acheive sit to and from toilet with use of grab bar with supervision for safety only. Patient required assist to wipe but was able to pull her pants up. The patient ambulated with front wheeled walker to chair 10 feet x 1. The patient was short of breath with ambulation. Overall the patient's endurance for physical activity is decreased.) Physical Therapy Problem List: Detail (1) LE weakness 2) Assistance with bed mobility,transfers and ambulation 3) Decreased ability to complete prolonged physical activity) Physical Therapy Goals: 1) The patient will be independent with all transfers. 2)The patient will ambulate with appropriate assistive device independently household distances. 3) The patient will be independent with bed mobility. 4) Increase LE strength 1/3 muscle grade to increase stability of gait. Physical Therapy Plan: PT 1-2 times a day for gait training, transfer training, bed mobilty, LE strengthening exercises.
[2019-02-13] MEDS: ATORVASTATIN 20 MG TABLET PO SCH (21:03)
[2019-02-13] MEDS: MONTELUKAST SODIUM 10MG TABLET PO SCH (21:03)
[2019-02-13] MEDS ORDERED: REMOVE PATCH 1 EACH MISC TD SCH (22:00)
[2019-02-14] MEDS: LEVOTHYROXINE SODIUM 88 MCG TABLET PO SCH (06:24)
[2019-02-14 06:49] LABS: HEMATOCRIT 36.8 % (35.0-47.0); HEMOGLOBIN 11.6 gm/dl (11.6-16.0)
[2019-02-14 07:11] LABS: CREATININE 1.6 mg/dL (0.5-0.9)
[2019-02-14] MEDS ORDERED: METFORMIN 500 MG TABLET PO SCH (08:00)
[2019-02-14] MEDS: [UNRECOGNIZED DRUG - OTHER] SC SCH ×4 (08:32→13:54)
--- NOTE | 2019-02-14 09:41 | Occupational Therapy Tx Note ---
Occupational Therapy Tx Note - Treatment Note Tolerated: Good Total Time Spent With Patient: 20 (ADL) Occupational Therapy Treatment Note: Detail (S: Pt resting in recliner, reports she feels much better today. O: Sit to stand from recliner Indly and amb to sink with 2 wheeled walker Indly. Pt stood at sink and completed washing face, brushing hair and oral hygiene Indly. Pt amb to toilet and completed toileting Indly including brief management and toileting hygiene. Pt amb to sink and washed hands Indly and then amb back to chair with walker Indly. Pt left up in recliner with feet elevated. A: Pt has continued shortness of breath with activity although is is much improved, Ind with grooming/hygiene and toileting as well as improved Ind with functional mobility) Occupational Therapy Problem List: Detail (1. Need to further assess self care tasks.) Occupational Therapy Goals: 1. Pt will be Ind with grooming/hygiene. 2. Pt will be Ind with showering in sitting. 3. Pt will be Ind with total body dressing. Prognosis: Good Occupational Therapy Plan: OT 2-4 times per week to address goals as stated above.
[2019-02-14] MEDS ORDERED: CALCIUM CARBONATE 500 MG TAB.CHEW PO SCH (10:00)
[2019-02-14] MEDS ORDERED: ENALAPRIL 5 MG TABLET PO SCH (10:00)
[2019-02-14] MEDS ORDERED: RIVAROXABAN 10 MG TABLET PO SCH (10:00)
[2019-02-14] MEDS: PREGABALIN 25 MG CAPSULE PO SCH (10:53)
[2019-02-14] MEDS: LIDOCAINE 5% PATCH TOP SCH (10:53)
[2019-02-14] MEDS: OXYBUTYNIN CHLORIDE 5MG TABLET PO SCH (10:53)
[2019-02-14] MEDS: FLUCONAZOLE 100 MG TABLET PO SCH (10:54)
[2019-02-14] MEDS: SERTRALINE HCL 50 MG TABLET PO SCH (10:54)
[2019-02-14] MEDS: TOUJEO SC SCH (10:56)
--- NOTE | 2019-02-14 14:12 | Discharge Note ---
VTE H&P Assessment - Risk for VTE Risk for VTE: Yes Risk Level: Moderate Risk Assessment Date: 02/11/19 Risk Assessment Time: 18:00 VTE Orders Placed or Will Be Placed: Yes Discharge Medications - Discharge Medications Home Medications: Ambulatory Orders Ubidecarenone [Coq-10] 100 mg PO DAILY 05/01/17 [Last Taken 02/11/19] Pregabalin [Lyrica] 25 mg PO BID #60 capsule 06/01/17 [Last Taken 02/11/19] Atorvastatin Calcium 40 mg PO QHS 09/15/18 [Last Taken 02/11/19] Cholecalciferol (Vitamin D3) [Vitamin D3] 2,000 unit PO DAILY 09/15/18 [Last Taken 02/11/19] Insulin Glulisine [Apidra Solostar] 7 unit SQ WMEALS 09/15/18 [Last Taken 02/11/19] Enalapril Maleate [Vasotec] 20 mg PO DAILY tablet 09/17/18 [Last Taken 02/11/19] Levothyroxine Sodium [Synthroid] 88 mcg PO DAILYTHY tablet 09/17/18 [Last Taken 02/11/19] Montelukast Sodium [Singulair] 10 mg PO QHS tab 09/17/18 [Last Taken 02/11/19] Nystatin [Nystop] 15 gm TP TID PRN powder 09/17/18 [Last Taken 02/11/19] Metformin HCl 1,000 mg PO BID 02/11/19 [Last Taken 02/11/19] Acetaminophen [Tylenol 325Mg] 650 mg PO Q6H PRN tablet 02/14/19 [Last Taken Unknown] Enalapril Maleate [Vasotec] 20 mg PO DAILY tablet 02/14/19 [Last Taken Unknown] Insulin Glargine,Hum.rec.anlog [Toujeo Solostar] 66 unit SQ DAILY #0 02/14/19 [Last Taken 02/11/19] Levothyroxine Sodium [Synthroid] 88 mcg PO DAILYTHY tablet 02/14/19 [Last Taken Unknown] Metformin HCl [Glucophage Ir] 1,000 mg PO BIDWM tablet 02/14/19 [Last Taken Unknown] Rivaroxaban [Xarelto] 20 mg PO DAILY tab 02/14/19 [Last Taken Unknown] Zinc Oxide [Desitin] 10 gm TOP BID PRN tube 02/14/19 [Last Taken Unknown] Discharge Note - Date Date of Discharge Note: 02/14/19 Condition: (3) Guarded Additional Instructions: Follow up appointment with Dr. Monreal after dicharge from [facility] Referrals: Horace Monreal D.O. [Primary Care Provider] - Forms: Patient Portal Access Activity at Discharge: Increase Activity as Tolerated Diet at Discharge: Diabetic Diet Reason If No Overlap Therapy Ordered for DC: Not Indicated Reason for No ASA at DC: Not Indicated Reason for No Statin at DC: Not Indicated
--- NOTE | 2019-02-16 09:00 | Discharge Summary ---
DATE: 02/14/2019 DISCHARGE DIAGNOSES: 1. Acute encephalopathy, resolved. 2. Renal failure, improving. 3. Rhabdomyolysis. 4. Dehydration, resolved. 5. Diabetes mellitus type 2. 6. Chronic obstructive pulmonary disease. 7. High risk for falls. 8. Neuropathy. 9. Hypotension, resolved. 10. Skin tears of both lower legs. 11. Monilia of the folds under the breast and groin area. 12. Prerenal azotemia, resolving. 13. Obstructive sleep apnea, on BiPAP. 14. History of thyroid cancer. ATTENDING PHYSICIAN: Horace Monreal DO REASON FOR HOSPITALIZATION: This patient fell on the floor, was on the floor for an unknown period of time, maybe up to 24 hours. Her brother Amador found her at the bedside and he also was giving a lot of her medical history. She was confused, slow speaking, more lethargic than typical, not answering questions appropriately. She denied any head or neck pain. She denied any pain on rocking her pelvis but her mental status was so decreased and on Xarelto, we obtained a CT of the head, neck, chest, pelvis, left shoulder, and right knee, which were all essentially negative. She was admitted to the hospital for acute encephalopathy, obstructive sleep apnea, hypotension, dehydration, acute prerenal azotemia, diabetes mellitus type 2, rhabdomyolysis with CPK more than 7000. She also has had skin tears of both shins and bruising on her knees. She has chronic changes of the lower extremities from peripheral vascular disease, hyperpigmentation, and leathery skin. SIGNIFICANT FINDINGS: Initially her white count was 10,600, hemoglobin 13.4. Potassium 5.7, BUN 86, creatinine 3.9, glucose 244, lactic acid 2.0, AST 195, ALT 62. CK 7888. Troponin was normal at 0.01. Urine showing specific gravity of 1.025, 7-10 RBCs, epithelial cells 7-10, bacteria few. It was a commode catch. The nurse said it was not a clean catch. Tylenol levels were normal, less than 0.5. No alcohol level present. The laboratory improved throughout the hospitalization. On discharge, hemoglobin 11.6, potassium 4.7, BUN 59, creatinine 1.6, calcium 8.3, AST 72, ALT 57, CK-MB dropped from [address] with no acute intracranial abnormalities or skull fracture, right temporoparietal scalp swelling. The CT of her neck showing no acute cervical spine pathology, multilevel degenerative disc disease, probable residual thyroid tissue within the superior mediastinum which appears similar to the patient's previous chest CT study. Chest x-ray with no acute chest pathology identified. Pelvic x-ray no acute pathology. Chronic findings as above. Arthritic changes lower lumbar spine, sacroiliac joints, mild arthritic changes within the hips. Lumbar spine AP view only. They were having difficulties getting the lateral view. No acute lumbar spine pathology identified, multidisc disease, mild levoscoliosis. Knee x-ray with right diffuse osteopenia, advanced tri- compartment arthritic changes, chronic deformity of proximal shaft of fibula, no acute right knee pathology. Left shoulder x-ray with no osteopenia, mild arthritic changes, no acute left shoulder pathology identified. EKG with normal sinus rhythm, no acute changes. THERAPY PROVIDED: The patient was given IV fluids. She had a fluid challenge in the emergency department of 1500 mL, then given 200 mL/hour. Even with the fluid, her blood pressure is low at 75/40 but it gradually came up. All blood pressure medications or anything that might lower the blood pressure was stopped. IV fluid, aggressive IV fluid, rehydration, monitoring her blood pressure, significant renal failure. She gradually improved. Initially was unable to move off the bed. At the day of discharge, she is walking with a walker. HOSPITAL COURSE: Gradual, slow. Her CK-MB came down to about 1300 from 7000. Her creatinine improved to 1.6. BUN was 59, potassium slightly high at 4.7. Her diabetes medications were restarted and her blood pressure medication was restarted. Blood pressure on discharge 143/54, pulse ox 96% on room air, respiratory rate 16, temperature 98.2. CONDITION ON DISCHARGE: Improved. DISCHARGE INSTRUCTIONS: The patient is either planning to go into the swing bed program for more rehab or home with home physical therapy. The patient is to follow up with Dr. Monreal after discharge from swing bed. Continue the nystatin powder under the breasts and in the groin. Also Tylenol 650 q.6 h. p.r.n. for pain, Desitin for her bottom b.i.d. p.r.n. She is going to continue on with her Detrol LA 4 mg daily, Tums 1000 mg a day, Apidra 7 units before meals and coverage 1 unit for every 20 over 160, enalapril 20 mg a day. Will not start the Lasix up at this time. Levothyroxine 88 mcg per day, hold the Lyrica, magnesium 400 mg daily. Her magnesium level is normal at 2.1. We will continue the magnesium, Singulair 10 mg a day, Nasonex 2 sprays each nostril daily, Insulin Glargine 66 units a day, Xarelto 20 mg a day, Xopenex inhaler 2 puffs q.4 h., Zyrtec 10 mg daily, Glucophage 1000 mg b.i.d., vitamin D3 2000 units daily, CoQ10 100 mg daily, Lipitor 40 mg a day, Zoloft 50 mg a day, Lidoderm patches to her painful areas 2 a day 12 hours on and 12 hours off, Tums. The patient should walk with a walker and will set up either a swing bed or physical therapy at home. [facility]
== END 2019-02-14 16:13 | disposition swing bed (61) | DRG 641 ==
LOC: ER 16:17 → MEDSURG 19:28
PROVIDERS: ADMIT Emergency Medicine; ATTEND Emergency Medicine
DX: E86.0 Dehydration (principal); G93.40 Encephalopathy, unspecified; E11.9 Type 2 diabetes mellitus without complications; Z79.4 Long term (current) use of insulin; T79.6XXA Traumatic ischemia of muscle, initial encounter; R79.89 Other specified abnormal findings of blood chemistry; M25.512 Pain in left shoulder; R10.31 Right lower quadrant pain; W19.XXXA Unspecified fall, initial encounter; Z91.81 History of falling; I10 Essential (primary) hypertension; E78.00 Pure hypercholesterolemia, unspecified; R60.0 Localized edema; F31.9 Bipolar disorder, unspecified; R32 Unspecified urinary incontinence; J45.909 Unspecified asthma, uncomplicated; Z66 Do not resuscitate; Z86.718 Personal history of other venous thrombosis and embolism; Z86.711 Personal history of pulmonary embolism; Z79.01 Long term (current) use of anticoagulants
CPT/HCPCS: 36416; 70450; 71046; 72100; 72125; 72170; 80048; 80053; 80320; 80329; 81001; 82140; 82550; 82948; 83605; 83735; 84450; 84460; 84484; 85014; 85018; 85025; 85027; 85610; 85730; 93005; 93010; 94640; 94760; 99285

== ENCOUNTER 2019-02-14 11:47 | Inpatient (IN) | payer MEDICARE ==
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
[2019-02-14] MEDS ORDERED: LEVALBUTEROL HCL 1.25 MG/3 ML INH PRN (15:24)
[2019-02-14] MEDS ORDERED: NYSTATIN 15 GM POWDER TP PRN (15:25)
[2019-02-14] MEDS ORDERED: ZINC OXIDE 28.35 GM TUBE TOP PRN (15:26)
[2019-02-14] MEDS: [UNRECOGNIZED DRUG - OTHER] SC SCH ×2 (17:55)
[2019-02-14] MEDS: METFORMIN 500 MG TABLET PO SCH (17:58)
[2019-02-14] MEDS: OXYBUTYNIN CHLORIDE 5MG TABLET PO SCH (21:05)
[2019-02-14] MEDS: REMOVE PATCH 1 EACH MISC TD SCH (21:06)
[2019-02-14] MEDS: ATORVASTATIN 20 MG TABLET PO SCH (21:06)
[2019-02-14] MEDS: PREGABALIN 25 MG CAPSULE PO SCH (21:06)
[2019-02-14] MEDS: MONTELUKAST SODIUM 10MG TABLET PO SCH (21:06)
[2019-02-14] MEDS: ACETAMINOPHEN 325 MG TAB PO PRN (21:51)
[2019-02-15] MEDS: LEVOTHYROXINE SODIUM 88 MCG TABLET PO SCH (06:24)
[2019-02-15] MEDS: METFORMIN 500 MG TABLET PO SCH ×2 (07:50→17:20)
[2019-02-15] MEDS: [UNRECOGNIZED DRUG - OTHER] SC SCH ×6 (07:51→17:21)
[2019-02-15] MEDS: PREGABALIN 25 MG CAPSULE PO SCH ×2 (09:36→22:00)
[2019-02-15] MEDS: RIVAROXABAN 20 MG TABLET PO SCH (09:36)
[2019-02-15] MEDS: FLUCONAZOLE 100 MG TABLET PO SCH (09:37)
[2019-02-15] MEDS: SERTRALINE HCL 50 MG TABLET PO SCH (09:37)
[2019-02-15] MEDS: OXYBUTYNIN CHLORIDE 5MG TABLET PO SCH ×2 (09:37→21:59)
[2019-02-15] MEDS: TOUJEO SC SCH (09:38)
[2019-02-15] MEDS: LIDOCAINE 5% PATCH TOP SCH (09:38)
[2019-02-15] MEDS: CALCIUM CARBONATE 500 MG TAB.CHEW PO SCH (09:38)
[2019-02-15] MEDS ORDERED: ENALAPRIL 5 MG TABLET PO SCH (10:00)
--- NOTE | 2019-02-15 10:53 | Physical Therapy Tx Note ---
Physical Therapy Tx Note - Treatment Note Tolerated: Good Total Time Spent With Patient: 35 Physical Therapy Tx Note: Detail (Patient was in bathroom upon [facility] arrival. Patient ambulated from toilet to chair with nursing. Patient states she's doing good today. Patient transferred sit to and from stand SBA x1. Patient ambulated 48 feet with wheeled walker SBA x1. Patient performed the following exercises seated in chair x10 reps each: heel raises, toe raises, LAQ, isometric hamstring sets, glut squeezes, marching, hip adductor squeezes, and isometric hip abduction. Patient tolerated treatment well. Patient displays some shortness of breath with ambulation. Patient reports LEs tired after treatment. Patient was left reclined in chair with call light within reach.) Physical Therapy Problem List: Detail (1) LE weakness 2) Shortness of breath with prolonged physical activity 3) CG with ambulation on stairs.) Physical Therapy Goals: 1)The patient will ambulate distances of 60 -70 feet with minimal shortness of breath with appropriate assistive device independently. 2) The patient will tolerate 20 to 30 minutes of physical activity with one to two rest periods. 3) The patient will ambulate on stairs with supervision for safety/independent. 4) The patient will demonstrate good understanding of fall prevention techniques. Prognosis: Good Physical Therapy Plan: PT 1-2 times a day for gait training on levels and stairs, LE strengthening and muscular endurance exercises and balance exercises.
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
[2019-02-15] MEDS: ACETAMINOPHEN 325 MG TAB PO PRN (18:53)
--- NOTE | 2019-02-15 20:14 | Physical Therapy Tx Note ---
Physical Therapy Tx Note - Treatment Note Tolerated: Good Total Time Spent With Patient: 25 Physical Therapy Tx Note: Detail (Pt up in bathroom with nrsg upon arrival, agreeable for therapy. Ambulated with front wheeled walker and SBA from bathroom out to hallway, past nrsg station, off of unit to loading dock hallway and back to bedside chair (about 90 feet total). Minimal shortness of breath noted. Good approach to chair, controlled descent. Rested briefly, then performed 10 reps each B of seated hip flexion, isometric hip abduction, isometric hip adduction, isometric knee flexion, seated knee extension, heel/toe raises. Left up in chair w/call light in reach, bedside table next to chair; nrsg notified.) Physical Therapy Problem List: Detail (1) LE weakness 2) Shortness of breath with prolonged physical activity 3) CG with ambulation on stairs.) Physical Therapy Goals: 1)The patient will ambulate distances of 60 -70 feet with minimal shortness of breath with appropriate assistive device independentl y. 2) The patient will tolerate 20 to 30 minutes of physical activity with one to two rest periods. 3) The patient will ambulate on stairs with supervision for safety/independent. 4) The patient will demonstrate good understanding of fall prevention techniques. Prognosis: Good Physical Therapy Plan: PT 1-2 times a day for gait training on levels and stairs, LE strengthening and muscular endurance exercises and balance exercises.
[2019-02-15] MEDS: MONTELUKAST SODIUM 10MG TABLET PO SCH (21:59)
[2019-02-15] MEDS: ATORVASTATIN 20 MG TABLET PO SCH (22:00)
[2019-02-15] MEDS: REMOVE PATCH 1 EACH MISC TD SCH (22:01)
[2019-02-16] MEDS: ACETAMINOPHEN 325 MG TAB PO PRN (01:31)
[2019-02-16] MEDS: LEVOTHYROXINE SODIUM 88 MCG TABLET PO SCH (06:23)
[2019-02-16 07:41] LABS: CREATININE 1.1 mg/dL (0.5-0.9)
[2019-02-16] MEDS: [UNRECOGNIZED DRUG - OTHER] SC SCH ×4 (08:01→12:32)
[2019-02-16] MEDS: METFORMIN 500 MG TABLET PO SCH (08:03)
--- NOTE | 2019-02-16 09:13 | Discharge Summary ---
Providers Date of admission: 02/14/19 16:21 Expected Date of Discharge: 02/16/19 Attending physician: Horace Monreal Primary care physician: Horace Monreal Consults: Consult Orders 02/14/19 18:06 Consult - Case Management NOW Comment: Reason For Exam: Homecare Physical Exam - Vital Signs Vital Signs: Vital Signs - Last 24 Hrs Temp Pulse Resp BP BP Pulse Ox 02/16/19 07:41 97.9 F 50 L 16 127/49 96 02/15/19 20:00 97.8 F 78 20 127/59 96 02/15/19 10:43 97.5 F L 118/47 - General General Appearance: Alert, Oriented x3, Cooperative, No acute distress - Head Head exam: Normal inspection - Eye Eye exam: Normal appearance, PERRL Pupils: Normal accommodation - ENT ENT exam: Normal exam, Mucous membranes moist, Normal external ear exam, Normal orophraynx, TM's normal bilaterally Ear exam: Normal external inspection. negative: External canal tenderness Nasal Exam: Normal inspection. negative: Discharge, Sinus tenderness Mouth exam: Normal external inspection, Tongue normal Teeth exam: Normal inspection. negative: Dental caries Throat exam: Normal inspection. negative: Tonsillar erythema, Tonsillar exudate - Neck Neck exam: Normal inspection, Full ROM. negative: Tenderness - Respiratory Respiratory exam: Normal lung sounds bilaterally. negative: Respiratory distress - Cardiovascular Cardiovascular Exam: Regular rate, Normal rhythm, Normal heart sounds - GI/Abdominal GI/Abdominal exam: Soft, Normal bowel sounds. negative: Tenderness - Rectal Rectal exam: Deferred - exam: Deferred - Extremities Extremities exam: Normal inspection, Full ROM, Normal capillary refill. negative: Tenderness - Back Back exam: Reports: Normal inspection, Full ROM. Denies: Muscle spasm, Rash noted, Tenderness - Neurological Neurological exam: Alert, Normal gait, Oriented X3, Reflexes normal - Psychiatric Psychiatric exam: Normal affect, Normal mood - Skin Skin exam: Other (skin tears on her lower legs , yeast under her breasts and groin area) Type of lesion: Other (four ulcerated wounds on her lower legs and knee and sever peripheral vascular disease) Hospitalization - Hospitalization Admission Diagnosis: Deconditioning d/t acute encepalopathy. hypotension, Hypovolemic shock. rhabdomyolisis. renal failure. diabetes mellitus type 2 - Problem List (1) Acute prerenal azotemia Current Visit: No Status: Acute Base Code: R79.89 - OTHER SPECIFIED ABNORMAL FINDINGS OF BLOOD CHEMISTRY (2) Diabetes mellitus type 2 in obese Current Visit: No Status: Acute Base Code: E11.69 - TYPE 2 DIABETES MELLITUS WITH OTHER SPECIFIED COMPLICATION; E66.9 - OBESITY, UNSPECIFIED (3) Encephalopathy acute Current Visit: No Status: Acute Base Code: G93.40 - ENCEPHALOPATHY, UNSPECIFIED (4) Morbid obesity Current Visit: No Status: Acute Base Code: E66.01 - MORBID (SEVERE) OBESITY DUE TO EXCESS CALORIES Comment: possible pick wickian syndrome (5) LARISA (obstructive sleep apnea) Current Visit: No Status: Acute Base Code: G47.33 - OBSTRUCTIVE SLEEP APNEA (ADULT) (PEDIATRIC) Comment: requires bipap (6) Rhabdomyolysis Current Visit: No Status: Acute Discharge Diagnosis: Rhabdomyolysis type: traumatic Encounter type: initial encounter Qualified Code(s): T79.6XXA - Traumatic ischemia of muscle, initial encounter Base Code: M62.82 - RHABDOMYOLYSIS (7) Physical deconditioning Current Visit: Yes Status: Acute Base Code: R53.81 - OTHER MALAISE (8) Renal failure (ARF), acute on chronic Current Visit: Yes Status: Acute Base Code: N17.9 - ACUTE KIDNEY FAILURE, UNSPECIFIED; N18.9 - CHRONIC KIDNEY DISEASE, UNSPECIFIED (9) Skin tear of left lower leg without complication Diagnosis Priority: Secondary Current Visit: Yes Status: Acute Discharge Diagnosis: Encounter type: subsequent encounter Qualified Code(s): S81.812D - Laceration without foreign body, left lower leg, subsequent encounter Base Code: S81.812A - LACERATION WITHOUT FOREIGN BODY, LEFT LOWER LEG, INIT ENCNTR Comment: four ulcerated wounds on her legs which are slowly healing and some maceration of the wouunds , No signs of infection - Disposition improve function so she can go home - Hospitalization Course Abnormal Labs: Abnormal Lab Results 02/14/19 02/15/19 02/16/19 Range/Units 21:11 22:00 06:32 Potassium 5.1 H (3.4-4.5) mmol/L Chloride 109 H (98-107) mmol/L BUN 36 H (8-23) mg/dL Creatinine 1.1 H (0.5-0.9) mg/dL POC Glucose 246 H 254 H (70-110) mg/dL Random Glucose 174 H (74-109) mg/dL Creatine Kinase 230 H (26-192) U/L Discharge Medications - Discharge Medications Prescriptions: Lidocaine Patch [Lidoderm] 2 each TOP DAILY #30 patch Nystatin [Nystop] 5 gm TP TID PRN #1 bottle PRN Reason: Rash Enalapril Maleate [Vasotec] 10 mg PO DAILY #30 tablet Home Medications: Ambulatory Orders Ubidecarenone [Coq-10] 100 mg PO DAILY 05/01/17 [Last Taken 02/11/19] Pregabalin [Lyrica] 25 mg PO BID #60 capsule 06/01/17 [Last Taken 02/11/19] Atorvastatin Calcium 40 mg PO QHS 09/15/18 [Last Taken 02/11/19] Cholecalciferol (Vitamin D3) [Vitamin D3] 2,000 unit PO DAILY 09/15/18 [Last Taken 02/11/19] Insulin Glulisine [Apidra Solostar] 7 unit SQ WMEALS 09/15/18 [Last Taken 02/11/19] Levothyroxine Sodium [Synthroid] 88 mcg PO DAILYTHY tablet 09/17/18 [Last Taken 02/11/19] Montelukast Sodium [Singulair] 10 mg PO QHS tab 09/17/18 [Last Taken 02/11/19] Nystatin [Nystop] 15 gm TP TID PRN powder 09/17/18 [Last Taken 02/11/19] Metformin HCl 1,000 mg PO BID 02/11/19 [Last Taken 02/11/19] Acetaminophen [Tylenol 325Mg] 650 mg PO Q6H PRN tablet 02/14/19 [Last Taken Unknown] Insulin Glargine,Hum.rec.anlog [Toujeo Solostar] 66 unit SQ DAILY #0 02/14/19 [Last Taken 02/11/19] Rivaroxaban [Xarelto] 20 mg PO DAILY tab 02/14/19 [Last Taken Unknown] Zinc Oxide [Desitin] 10 gm TOP BID PRN tube 02/14/19 [Last Taken Unknown] Acetaminophen [Tylenol 325Mg] 650 mg PO Q6H PRN tablet 02/16/19 [Last Taken Unknown] Calcium Carbonate [Tums] 1,000 mg PO DAILY tab.chew 02/16/19 [Last Taken Unknown] Enalapril Maleate [Vasotec] 10 mg PO DAILY #30 tablet 02/16/19 [Last Taken Unknown] Levothyroxine Sodium [Synthroid] 88 mcg PO DAILYTHY tablet 02/16/19 [Last Taken Unknown] Lidocaine Patch [Lidoderm] 2 each TOP DAILY #30 patch 02/16/19 [Last Taken Unknown] Metformin HCl [Glucophage Ir] 1,000 mg PO BIDWM tablet 02/16/19 [Last Taken Unknown] Montelukast Sodium [Singulair] 10 mg PO QHS tab 02/16/19 [Last Taken Unknown] Nystatin [Nystop] 5 gm TP TID PRN #1 bottle 02/16/19 [Last Taken Unknown] Pregabalin [Lyrica] 25 mg PO BID capsule 02/16/19 [Last Taken Unknown] Rivaroxaban [Xarelto] 20 mg PO DAILY tab 02/16/19 [Last Taken Unknown] Zinc Oxide [Desitin] 10 gm TOP BID PRN tube 02/16/19 [Last Taken Unknown] Discharge Plan - Discharge Instructions Activity at Discharge: Increase Activity as Tolerated Diet at Discharge: Diabetic Diet Additional Instructions: follow up with Dr Monreal on Feb 26,10:00 am in the office wash the leg wounds daily put triple antibiotic ointment on daily and use a guaze dressing weight daily and if weight up 5 pounds in 24 hour start lasix daily her weight today is 269 pounds Quality Measures - Quality Measures Quality Measures: Advance Directives, Documentation of Current Medications in Medical Record, Elder Maltreatment Screen and Follow-Up Plan, Screening for High Blood Pressure and F/U Documented - Current Medications Quality Measure: Measure #130: Documentation of Current Medications Documentation of Current Medications: <Current Medications Documented/Reviewed> [G8427] - Blood Pressure Screening Quality Measure: Screening for High Blood Pressure and Follow-Up Documented Does Patient Have Any of the Following: Active Dx of HTN Blood Pressure Classification: Normal BP Reading Systolic Measurement: 118 Diastolic Measurement: 47 Screening for High Blood Pressure: Patient Exclusion, Hx of HTN [G9744] - Advance Directives Quality Measure: Measure #47: Care Plan Advance Directives Established: No Advance Directives Information Provided To Patient: Declined Advance Directives on File: No Living Will: No Power of Commissioning Editor: Yes Power of Commissioning Editor Name: Amador Fulton Advance Care Planning: <Care Plan/Decision Maker Documented; Discussed & Documented> [[id number]] - Elder Abuse Suspicion Index Screening: Elder Abuse Suspicion Index Screening Rely on people for bathing, dressing, shopping, banking, etc: Yes Prevented from getting food, clothes, medication, etc: No Made to feel shamed or threatened by someone: No Forced to sign papers or use money against will: No Feel afraid, touched in ways not wanted or hurt physically: No Poor eye contact, withdrawn, malnourished, cuts or bruises: No Screening Result: Negative result EASI Reference Information: Efren BANKS, Annabelle C, Keri D, Jewels Lema.Development and validation of a tool to assist physicians identification of elder abuse: The Elder Abuse Suspicion Index (EASI ). Journal of Elder Abuse and Neglect, 2008; 20 (3): 276-300. - Elder Maltreatment Screen Quality Measures: Elder Maltreatment Screen and Follow-Up Plan Elder Maltreatment Screen: <Negative, No Follow-Up Plan Required> [Y1470]
[2019-02-16] MEDS ORDERED: ENALAPRIL 5 MG TABLET PO SCH (10:00)
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
[2019-02-16] MEDS: CALCIUM CARBONATE 500 MG TAB.CHEW PO SCH (10:17)
[2019-02-16] MEDS: TOUJEO SC SCH (10:18)
[2019-02-16] MEDS: RIVAROXABAN 20 MG TABLET PO SCH (10:18)
[2019-02-16] MEDS: PREGABALIN 25 MG CAPSULE PO SCH (10:18)
[2019-02-16] MEDS: OXYBUTYNIN CHLORIDE 5MG TABLET PO SCH (10:18)
[2019-02-16] MEDS: FLUCONAZOLE 100 MG TABLET PO SCH (10:18)
[2019-02-16] MEDS: LIDOCAINE 5% PATCH TOP SCH (10:18)
[2019-02-16] MEDS: SERTRALINE HCL 50 MG TABLET PO SCH (10:18)
[2019-02-16] MEDS ORDERED: ONDANSETRON 4 MG ODT TABLET SL ONE (12:36)
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
== END 2019-02-16 15:55 | disposition home or self-care (01) | DRG 71 ==
LOC: MEDSURG 16:21
PROVIDERS: ADMIT Emergency Medicine; ATTEND Emergency Medicine
DX: G93.40 Encephalopathy, unspecified (principal); M62.82 Rhabdomyolysis; N17.9 Acute kidney failure, unspecified; I95.9 Hypotension, unspecified; R79.89 Other specified abnormal findings of blood chemistry; E11.69 Type 2 diabetes mellitus with other specified complication; G47.33 Obstructive sleep apnea (adult) (pediatric); E66.01 Morbid (severe) obesity due to excess calories; M19.90 Unspecified osteoarthritis, unspecified site; F31.9 Bipolar disorder, unspecified; Z86.711 Personal history of pulmonary embolism; Z86.718 Personal history of other venous thrombosis and embolism
CPT/HCPCS: 36416; 80048; 82550; 82948